=== PATIENT | male | born 1965 | race Caucasian/White ===

== ENCOUNTER 2020-07-25 11:46 | Inpatient (IN) | payer BC, MEDICAID ==
[~2020-07-25] VITALS: Ht 170.2 cm; Wt 88.9 kg
[2020-07-25] MEDS ORDERED: ENOX40IN3 SC (13:26)
[2020-07-25] MEDS ORDERED: FLOM0.4C39 PO (13:26)
[2020-07-25] MEDS ORDERED: FLUD0.1T PO (13:26)
[2020-07-25] MEDS ORDERED: AMLO1TAB25 PO (13:26)
[2020-07-25] MEDS ORDERED: DOCU100C16 PO (13:26)
[2020-07-25] MEDS ORDERED: LISI10TA4 PO (13:26)
[2020-07-25] MEDS ORDERED: DULC10SU2 PR (13:26)
[2020-07-25] MEDS ORDERED: INSUHUMDS SC (13:26)
[2020-07-25] MEDS ORDERED: ACET-908 PO (13:26)
[2020-07-25] MEDS ORDERED: ONDA-83 PO (13:26)
[2020-07-25] MEDS ORDERED: POTA1TAB14 PO (13:26)
[2020-07-25] MEDS ORDERED: ATEN100T PO (13:26)
[2020-07-25] MEDS ORDERED: SODI1TAB6 PO (13:26)
[2020-07-25] MEDS ORDERED: ASPI81CH33 PO (13:26)
[2020-07-25 13:56] VITALS: BP 143/88
[2020-07-25] MEDS ORDERED: REMEDY PHYTOPLEX Z-GUARD PASTE 113GM TUBE (FROM STOREROOM PRODUCT) TOP PRN (14:15)
[2020-07-25] MEDS ORDERED: PREPARATION H OINTMENT (HEMORRHOID) PR PRN (14:15)
[2020-07-25] MEDS ORDERED: URSO1TAB8 PO (14:27)
[2020-07-25] MEDS ORDERED: TRUL10IN PO (14:27)
[2020-07-25] MEDS ORDERED: OMEG100014 PO (14:27)
[2020-07-25] MEDS ORDERED: SYMB16INH INH (14:27)
[2020-07-25] MEDS ORDERED: LISI40TA PO (14:27)
[2020-07-25] MEDS ORDERED: ALBU8.5H INH (14:27)
[2020-07-25] MEDS ORDERED: OMEP-221 PO (14:27)
[2020-07-25] MEDS ORDERED: KETO2CR TOP (14:28)
--- NOTE | 2020-07-25 14:35 | HPEPDOC ---
Vital Signs DATE OF ADMISSION: 07.25.2020 DATE OF SERVICE: 07.25.2020 TIME OF ADMISSION: Please refer to physician's admission order. 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 [place] [facility] [place] head showed L IPH and IV Extension, given Kcentra and TXA for reversal of Eliquis. He was then Air-transferred to [facility] 07.18.2020. on presentation he had receptive aphasia, had R Upper visual field cut, workup noted for abnormal spot EEG/07.23.20, no clear epileptiform abnormality. ECHO 07.22.20 EF 55%, MRI brain 07.20.2020 Acute/subacute L Temporoparietal lobe with stable surrounding edema and mass effect. CTA no change in hemorrhage nor evidence aneurysm or AVM. He was changed to ASA for a fib. Atenolol titrated up to 100/day for intermittent tachy cardia. Hyponatremia treated with Na 3G TID and started on Florinef BID. Plan was to wean off Na tabs as normalized. Sodium 136 on 07.23. He is enrolled in the SATURN trial. Lipid panel 07.18.20 total cholesterol 95, LDL 45, HDL 36 TG 73, HbA1C 6.4, TSH 0.425 07.18.20 REVIEW OF SYSTEMS: The following is a completed review of systems and has been reviewed. Review of systems otherwise unremarkable. PAIN: Patient self reports no pain. EYES: No recent vision changes. EARS, NOSE, & THROAT: No throat pain, or dysphagia, or rhinorrhea. CARDIOVASCULAR: Denies chest pain or palpitations. PULMONARY: Denies shortness of breath. GASTROINTESTINAL: Denies constipation/diarrhea, last bm this am. admits hemorrhoids GENITOURINARY: .continent MUSCULOSKELETAL: bilateral hip girdle discomfort. NEUROLOGICAL:.aphasia, mild left lower extremity weakness HEMATOLOGICAL: no specific complaints SKIN: .widespread erythematous plaques over trunk, lower abdomen PSYCHIATRIC: Unremarkable. All other review of systems found to be negative. PAST MEDICAL HISTORY: Hypertension Diabetes. Afib Asthma Recent PE on anticoagulation Psoriasis PAST SURGICAL HISTORY: Repair umbilical hernia ALLERGIES: PCN, Codiene, Vicodin Please see below. MEDICATIONS: Please see below. FAMILY HISTORY: Father in 30s from cancer, mother 50s from Diabetes. SOCIAL HISTORY: . No- Smoker, EtOH, lives in a O step entrance 2 story home with a roommate who can be helpful, and supportive daughters. He had been on disability, working on SSDI due to prior health issues, however was able to ambulate and perform all self care activities. DIET: .Diabetic PHYSICAL EXAMINATION: VITAL SIGNS: Please see below. GENERAL: Pleasant and cooperative. No acute distress. Alert and oriented times three, occasional word finding difficulties or substitutions noted. HEENT: PERRL. Extraocular movements intact. Clear conjunctiva, no adenopathy or thyromegaly. Full cervical range of motion without tenderness or spasm. CARDIOVASCULAR: Regular rate and rhythm. LUNGS: Clear to auscultation bilaterally. No wheezes. No rhonchi. ABDOMEN: Soft, nontender, obese. Positive bowel sounds. Normal active bowel s ounds, no organomegaly. NEUROLOGICAL: Cranial nerves II through XII intact including visual weston. Sensation grossly intact all 4 extremities. No pronator drift, no tremor, normal tone upper extremities. EXTREMITIES: 5/5 bead inspector, elbow flexion, elbow extension, 4/5 bilateral knee extension, foot dorsiflexion, plantar flexion with complaint of pain into hip girdles on SLR 40 degrees bilaterally. FABERE negative. SKIN: Multiple large maculopapular red lesions posterolateral trunk, abdomen. LABORATORY DATA: Please see below. IMAGING:Imaging documentation personally reviewed by record and noted. FUNCTIONAL STATUS: Premorbid: Independent with all activities of daily life as well as mobility. On Admission: Expressive aphasia, minimal assistance with bathing, contact guard assistance for upper body dressing. Minimal assistance for lower body dressing, modified independence for grooming. GOALS: Regain baseline level of modified independence ASSESSMENT: This is a 55-year-old gentleman with history of hypertension, diabetes, with sudden onset of headache, confusion and right-sided visual field cuts found to have left temporal parietal IPH with extension into the ventricular system at local hospital, transferred to [facility] 07.18.2020, worked up, stabilized and now transferred to [facility] for Comprehensive rehabilitation services. 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 Rehab- PT/OT advance gait and ADls, strengthen/stretch/maintain ROM all 4 san bs, -FRUIT TESTER for communication, swallowing assessments and assist with optimal behavioral strategies to facilitate progress and achievement of greatest potential functional capability. 2. Neuro- s/p ICH, aphasic, no evidence siezures, monitor for progression -c/u ASa and statin for secondary stroke prevention tight lipid control, hold eliquis 3. Cardiac- hx Afib, c/u ASA and beta-dianne, monitor -HTN c/u lisinopril -HLD- c/u CRESTOR 4. Resp -incentive spirometry, RT as indicated, monitor for infection 5. Endo- hx of DM c/u insulin and ISS 7. - check UA, initiate bladder program 8. GI ppx- protonix, POST ADMISSION PHYSICIAN EVALUATION: Medical and functional status: Description of medical status, medical assessment: As above. Rehabilitation diagnosis and current and prior cold morbid medical conditions as above. Risk of complications and plans to mitigate them as above. Description of functional status current status is as above. Prior status as above. Status compared to preadmission: There are no clinically significant differences between the patient's current status and the information described on the preadmission screening document. Treatment plan anticipated: Treatment plan is as described above. Required disciplines including physical therapy, occupational therapy, others as noted above. Intensity of services: 3 hours a day, 6-7 days a week. Special considerations: There are no specific special or safety considerations that would likely preclude immediate implementation of an intensive rehabilitation program or subsequently influence the plan of care. ATTESTATION: Considering all the information above, it is my best judgment that this patient requires intensive rehabilitation therapy as described above and an inpatient hospital environment due to the complexity of nursing, medical, and rehabilitation needs required by the patient. Furthermore, this patient can reasonably be expected to participate in an benefit from an inpatient rehabilitation stay with an interdisciplinary team approach to the delivery of rehabilitation care under the direction and supervision of rehabilitation physician. PROGNOSIS: Good ESTIMATED LENGTH OF STAY:10-14 days. PROJECTED DISCHARGE DESTINATION: Home with family support and any durable medical equipment required to increase functional safety and mobility. TIME SPENT COUNSELING AND COORDINATING INITIAL CARE: Greater than 70 minutes. This document is generated using speech recognition software which may result in grammatical, typographical and individual word errors. Vital Sign - Last 24 Hours 07/25/20 13:56 Temp 97.8 Pulse 87 Resp 20 B/P (MAP) 143/88 (106) Pulse Ox 99 O2 Delivery Room Air Home Medications Scheduled Albuterol Sulfate (Albuterol Sulfate Hfa) 8.5 Gm Hfa.aer.ad, 2 PUFF INH Q4H, (Reported) Amlodipine Besylate (Amlodipine Besylate) 10 Mg Tablet, 10 MG PO DAILY, (Reported) Aspirin (Aspirin) 81 Mg Tab.chew, 81 MG PO DAILY, (Reported) Atenolol (Atenolol) 100 Mg Tablet, 100 MG PO DAILY, (Reported) Budesonide/Formoterol (Symbicort 160-4.5 Mcg Inhaler) 6 Gm Hfa.aer.ad, 2 PUFF INH BID, (Reported) Docusate Sodium (Docusate Sodium) 100 Mg Capsule, 100 MG PO BID, (Reported) Dulaglutide (Trulicity) 0.75 Mg/0.5 Ml Pen.injctr, 0.75 MG PO 1XWK, (Reported) SATURDAYS Enoxaparin Sodium (Enoxaparin Sodium) 40 Mg/0.4 Ml Syringe, 40 MG SC DAILY, (Reported) Fludrocortisone Acetate (Fludrocortisone Acetate) 0.1 Mg Tablet, 0.1 MG PO BID, (Reported) Insulin Human Lispro (Humalog) 100 Unit/1 Ml Vial, 1 DOSE SC AC, (Reported) PER SLIDING SCALE Ketoconazole (Ketoconazole) 15 Gm Cream..g., 1 APLCT TOP BID, (Reported) TO AFFECTED AREAS Lisinopril (Lisinopril) 40 Mg Tablet, 20 MG PO DAILY, (Reported) [place]-3/Dha/Epa/Fish Oil ([place]-3 Fish Oil Softgel) 1 Each Capsule, 2 CAP PO DAILY, (Reported) Omeprazole (Omeprazole) 40 Mg Capsule.dr, 40 MG PO DAILY, (Reported) Potassium Chloride (Potassium Chloride) 20 Meq Tablet.er, 40 MEQ PO DAILY, (Reported) Sodium Chloride (Sodium Chloride) 1 Gm Tablet, 3 GM PO Q8H, (Reported) Tamsulosin HCl (Flomax) 0.4 Mg Capsule, 0.4 MG PO DAILY, (Reported) Ursodiol (Ursodiol) 500 Mg Tablet, 500 MG PO BID, (Reported) Scheduled PRN Acetaminophen (Acetaminophen) 325 Mg Tablet, 650 MG PO Q4H PRN for PAIN / FEVER, (Reported) Bisacodyl (Dulcolax) 10 Mg Supp.rect, 10 MG [place] Q3DP PRN for CONSTIPATION, (Reported) Ondansetron HCl (Ondansetron HCl) 4 Mg Tablet, 4 MG PO Q8H PRN for NAUSEA OR VOMITING, (Reported) Allergies Coded Allergies: Penicillins (Verified Allergy, Unknown, 07/25/20) acetaminophen (Verified Allergy, Unknown, 07/25/20) codeine (Verified Allergy, Unknown, 07/25/20) hydrocodone (Verified Allergy, Unknown, 07/25/20) A-FIB/CHADSVASC A-FIB History Current/History of A-Fib/PAF?: Yes Current PO Anticoag Therapy: Yes Age/Risk Factor Scoring CHADSVASC: CHADSVASC Response (Comments) Value Age Risk Factor Age < 65 years old 0 Gender Risk Factor Male 0 Hx of HTN Yes 1 Hx of Stroke/TIA/or VTE Yes 2 Hx of Diabetes Yes 1 Total 4 LYNDSEY AVENDANO MD Jul 25, 2020 14:35
[2020-07-25] MEDS ORDERED: ONDANSETRON 4 MG TAB PO PRN (14:45)
[2020-07-25] MEDS ORDERED: BISACODYL 10 MG SUPP PR PRN (14:45)
[2020-07-25] MEDS ORDERED: ACETAMINOPHEN 325 MG TAB PO PRN (14:45)
[2020-07-25] MEDS ORDERED: ALBUTEROL 90 MCG/ACT 8GM HFA INHALER INH PRN (14:45)
[2020-07-25] MEDS ORDERED: GLUCOSE 4GM CHEW TABLET PO PRN (15:00)
[2020-07-25] MEDS ORDERED: GLUCAGON INJ 1MG VIAL SC PRN (15:00)
[2020-07-25] MEDS ORDERED: DEXTROSE 50% 50 ML SYRINGE IV PRN (15:00)
[2020-07-25] MEDS: HumaLOG INSULIN (NovoLOG) PER UNIT SC SCH ×2 (16:58→20:58)
[2020-07-25] MEDS: SYMBICORT 160/4.5MCG INHALER 6GM INH SCH (19:50)
[2020-07-25 20:00] VITALS: BP 140/91
[2020-07-25] MEDS: SODIUM CHLORIDE 1 GM TAB PO SCH (20:57)
[2020-07-25] MEDS: ursodioL 300 MG CAP PO SCH (20:57)
[2020-07-25] MEDS: FLUDROCORTISONE ACETATE 0.1 MG TAB PO SCH (20:57)
[2020-07-25] MEDS: DOCUSATE SODIUM 100 MG CAP PO SCH (20:59)
[2020-07-25] MEDS ORDERED: POTASSIUM CHLORIDE 10 MEQ SR TABLET PO SCH (21:00)
[2020-07-25] MEDS ORDERED: FLUDROCORTISONE ACETATE 0.1 MG TAB PO SCH (21:00)
[2020-07-26 05:56] VITALS: BP 126/77
[2020-07-26] MEDS: SODIUM CHLORIDE 1 GM TAB PO SCH ×3 (06:25→21:49)
[2020-07-26 07:03] LABS: BASO # 0.1 10^3/uL (0.0-0.2); BASO % 0.6 % (0.0-1.0); EOS # 0.2 10^3/uL (0.0-0.5); EOS % 1.3 % (0.0-3.0); HEMATOCRIT 50.7 % (42.0-52.0); HEMOGLOBIN 17.1 g/dl (13.5-17.5); LYMPH # 4.8 10^3/uL (1.5-5.0); LYMPH % 34.1 % (24.0-44.0); MEAN CORPUSCULAR HEMOGLOBIN 28.5 pg (27.0-33.0); MEAN CORPUSCULAR HGB CONC 33.7 g/dl (32.0-36.5); MEAN CORPUSCULAR VOLUME 84.5 fl (80.0-96.0); MONO # 1.5 10^3/uL (0.0-0.8); MONO % 10.6 % (0.0-5.0); NEUTROPHILS # 7.4 10^3/uL (1.5-8.5); NEUTROPHILS % 53.1 % (36.0-66.0); PLATELET COUNT, AUTOMATED 397 10^3/uL (150-450); WHITE BLOOD COUNT 13.9 10^3/uL (4.0-10.0)
[2020-07-26] MEDS: SYMBICORT 160/4.5MCG INHALER 6GM INH SCH ×2 (07:10→20:33)
[2020-07-26] MEDS: ursodioL 300 MG CAP PO SCH ×3 (07:28→21:48)
[2020-07-26] MEDS: HumaLOG INSULIN (NovoLOG) PER UNIT SC SCH ×4 (07:28→21:48)
[2020-07-26] MEDS: lisinopriL 20 MG TAB PO SCH (07:29)
[2020-07-26] MEDS: TAMSULOSIN 0.4 MG CAP PO SCH (07:29)
[2020-07-26] MEDS: OMEGA-3 1000MG CAPSULE PO SCH (07:29)
[2020-07-26] MEDS: ASPIRIN 81 MG CHEW TABLET PO SCH (07:29)
[2020-07-26] MEDS: atenoloL 50 MG TAB PO SCH (07:29)
[2020-07-26] MEDS: FLUDROCORTISONE ACETATE 0.1 MG TAB PO SCH ×2 (07:29→21:48)
[2020-07-26] MEDS: MIRALAX *UNIT DOSE* 17GM PACKET PO SCH (07:30)
[2020-07-26] MEDS: DOCUSATE SODIUM 100 MG CAP PO SCH ×2 (07:30→21:00)
[2020-07-26] MEDS: amLODIPine 10 MG TAB PO SCH (07:30)
[2020-07-26] MEDS: OMEPRAZOLE 20 MG CAP PO SCH (07:30)
[2020-07-26] MEDS: POTASSIUM CHLORIDE 10 MEQ SR TABLET PO SCH (07:31)
[2020-07-26] MEDS: ENOXAPARIN 40MG/0.4ML SYRINGE (J1650 PER 10MG) SC SCH (07:32)
[2020-07-26] MEDS: ANUSOL HC CREAM 30GM TOP SCH (09:04)
[2020-07-26] MEDS: ACETAMINOPHEN TAB 650MG DOSE (2X325MG) PO PRN ×2 (09:04→17:43)
[2020-07-26 14:00] VITALS: BP 132/66
--- NOTE | 2020-07-26 17:50 | CR.PDOC ---
General Date of Consultation: Jul 26, 2020 Consultation REASON FOR CONSULTATION/CHIEF COMPLAINT: Medical co-management HISTORY OF PRESENT ILLNESS: 55M with PMHx HTN, DM, recent PE/Eliquis and recent hemorrhagic CVA - left temporoparietal lobe, treated at [facility]. He originally had some focal neurologic deficits including aphasia and visual loss. His deficits have been improving as per patient. Currently he denies any new medical complaints. He denies chest pain, SOB, VAIL, N/V/D, changes in vision, abdominal pain, parasthesias or weakness. ALLERGIES: Please see below. HOME MEDICATIONS: Please see below. PAST MEDICAL HISTORY: Recent hemorrhagic CVA HTN Diabetes. Afib Asthma Recent PE on a/c Psoriasis REVIEW OF SYSTEMS: Negative except as per HPI. PHYSICAL EXAMINATION: VITAL SIGNS: Please see below. GENERAL: NAD, sitting comfortably in chair HEENT: NC/AT, EOMI, PERRL Lungs: CTA B/L Heart: +S1S2, RRR Abd: soft, NT, +BS, obese Ext: no edema, sensation intact Psych: AAOx3 LABORATORY DATA: Please see below. ASSESSMENT/PLAN: 55M transferred to [facility] from [facility] for rehab s/p ICH, with PMHx afib, HTN, DM, PE/Eliquis, history of hyponatremia. #ICH - statin therapy - enrolled in SATURN trial - continue with rehab as per primary team #afib - rate controlled - atenolol - on ASA for a/c #HTN - lisinopril, amlodipine, atenolol #DM - carb consistent diet - ISS #BPH - flomax #cholelithiasis? - receiving Ursodial - PBC? #leukocytosis - check CBC in am #hyponatremia - check BMP in am - florinef, oral sodium supplementation #hemorrhoids - topical ointment - hydrocortisone #DVT prophylaxis - Lovenox Vital Signs/I&O Vital Signs Date Time Temp Pulse Resp B/P (MAP) Pulse Ox O2 Delivery O2 Flow Rate FiO2 07/26/20 14:00 98.3 83 18 132/66 (88) 95 Room Air l I&O- Last 24 Hours up to 6 AM 07/26/20 06:00 Intake Total 320 ml Output Total 0 ml Balance 320 ml Laboratory Data Labs 24H Laboratory Tests 2 07/25/20 20:03: Bedside Glucose (Misc Panel) 173H 07/26/20 06:04: Bedside Glucose (Misc Panel) 133H 07/26/20 06:47: Immature Granulocyte % (Auto) 0.3, Neutrophils (%) (Auto) 53.1, Lymphocytes (%) (Auto) 34.1, Monocytes (%) (Auto) 10.6H, Eosinophils (%) (Auto) 1.3, Basophils (%) (Auto) 0.6, Neutrophils # (Auto) 7.4, Lymphocytes # (Auto) 4.8, Monocytes # (Auto) 1.5H, Eosinophils # (Auto) 0.2, Basophils # (Auto) 0.1, Nucleated Red Blood Cells % (auto) 0.0 07/26/20 11:40: Bedside Glucose (Misc Panel) 109H 07/26/20 16:42: Bedside Glucose (Misc Panel) 185H CBC/BMP Laboratory Tests 07/26/20 06:47 Allergies Coded Allergies: Penicillins (Verified Allergy, Unknown, 07/25/20) codeine (Verified Allergy, Unknown, 07/25/20) hydrocodone (Verified Allergy, Unknown, 07/25/20) Home Medications Scheduled Albuterol Sulfate (Albuterol Sulfate Hfa) 8.5 Gm Hfa.aer.ad, 2 PUFF INH Q4H, (Reported) Amlodipine Besylate (Amlodipine Besylate) 10 Mg Tablet, 10 MG PO DAILY, (Reported) Aspirin (Aspirin) 81 Mg Tab.chew, 81 MG PO DAILY, (Reported) Atenolol (Atenolol) 100 Mg Tablet, 100 MG PO DAILY, (Reported) Budesonide/Formoterol (Symbicort 160-4.5 Mcg Inhaler) 6 Gm Hfa.aer.ad, 2 PUFF INH BID, (Reported) Docusate Sodium (Docusate Sodium) 100 Mg Capsule, 100 MG PO BID, (Reported) Dulaglutide (Trulicity) 0.75 Mg/0.5 Ml Pen.injctr, 0.75 MG PO 1XWK, (Reported) SATURDAYS Enoxaparin Sodium (Enoxaparin Sodium) 40 Mg/0.4 Ml Syringe, 40 MG SC DAILY, (Reported) Fludrocortisone Acetate (Fludrocortisone Acetate) 0.1 Mg Tablet, 0.1 MG PO BID, (Reported) Insulin Human Lispro (Humalog) 100 Unit/1 Ml Vial, 1 DOSE SC AC, (Reported) PER SLIDING SCALE Ketoconazole (Ketoconazole) 15 Gm Cream..g., 1 APLCT TOP BID, (Reported) TO AFFECTED AREAS Lisinopril (Lisinopril) 40 Mg Tablet, 20 MG PO DAILY, (Reported) [place]-3/Dha/Epa/Fish Oil ([place]-3 Fish Oil Softgel) 1 Each Capsule, 2 CAP PO DAILY, (Reported) Omeprazole (Omeprazole) 40 Mg Capsule.dr, 40 MG PO DAILY, (Reported) Potassium Chloride (Potassium Chloride) 20 Meq Tablet.er, 40 MEQ PO DAILY, (Reported) Sodium Chloride (Sodium Chloride) 1 Gm Tablet, 3 GM PO Q8H, (Reported) Tamsulosin HCl (Flomax) 0.4 Mg Capsule, 0.4 MG PO DAILY, (Reported) Ursodiol (Ursodiol) 500 Mg Tablet, 500 MG PO BID, (Reported) Scheduled PRN Acetaminophen (Acetaminophen) 325 Mg Tablet, 650 MG PO Q4H PRN for PAIN / FEVER, (Reported) Bisacodyl (Dulcolax) 10 Mg Supp.rect, 10 MG [place] Q3DP PRN for CONSTIPATION, (Reported) Ondansetron HCl (Ondansetron HCl) 4 Mg Tablet, 4 MG PO Q8H PRN for NAUSEA OR VO MITING, (Reported) JOSH WHITMAN MD Jul 26, 2020 17:50
[2020-07-26 20:00] VITALS: BP 122/84
[2020-07-27 06:00] VITALS: BP 126/80
[2020-07-27] MEDS: SODIUM CHLORIDE 1 GM TAB PO SCH ×3 (06:12→21:27)
[2020-07-27 06:26] LABS: BASO % 0.4 % (0.0-1.0); EOS # 0.1 10^3/uL (0.0-0.5); EOS % 1.3 % (0.0-3.0); HEMATOCRIT 46.6 % (42.0-52.0); HEMOGLOBIN 15.8 g/dl (13.5-17.5); LYMPH # 2.9 10^3/uL (1.5-5.0); LYMPH % 31.3 % (24.0-44.0); MEAN CORPUSCULAR HEMOGLOBIN 28.6 pg (27.0-33.0); MEAN CORPUSCULAR HGB CONC 33.9 g/dl (32.0-36.5); MEAN CORPUSCULAR VOLUME 84.3 fl (80.0-96.0); MONO # 1.1 10^3/uL (0.0-0.8); MONO % 11.3 % (0.0-5.0); NEUTROPHILS # 5.1 10^3/uL (1.5-8.5); NEUTROPHILS % 55.2 % (36.0-66.0); PLATELET COUNT, AUTOMATED 355 10^3/uL (150-450); RED BLOOD COUNT 5.53 10^6/uL (4.30-6.10); WHITE BLOOD COUNT 9.3 10^3/uL (4.0-10.0)
[2020-07-27] MEDS: SYMBICORT 160/4.5MCG INHALER 6GM INH SCH ×2 (07:04→20:18)
[2020-07-27 07:05] LABS: ALBUMIN 2.9 GM/DL (3.2-5.2); ALT/SGPT 30 U/L (12-78); BILIRUBIN,TOTAL 0.6 MG/DL (0.2-1.0); BLOOD UREA NITROGEN 10 MG/DL (7-18); CALCIUM LEVEL 8.9 MG/DL (8.5-10.1); CARBON DIOXIDE LEVEL 28 MEQ/L (21-32); CHLORIDE LEVEL 106 MEQ/L (98-107); CREATININE FOR GFR 0.87 MG/DL (0.70-1.30); GLOMERULAR FILTRATION RATE > 60.0 (>56); GLUCOSE, FASTING 139 MG/DL (70-100); POTASSIUM SERUM 3.3 MEQ/L (3.5-5.1); SODIUM LEVEL 140 MEQ/L (136-145); TOTAL PROTEIN 6.4 GM/DL (6.4-8.2)
[2020-07-27] MEDS: HumaLOG INSULIN (NovoLOG) PER UNIT SC SCH ×4 (07:32→21:00)
[2020-07-27] MEDS: ENOXAPARIN 40MG/0.4ML SYRINGE (J1650 PER 10MG) SC SCH (07:34)
[2020-07-27] MEDS: OMEPRAZOLE 20 MG CAP PO SCH (07:35)
[2020-07-27] MEDS: FLUDROCORTISONE ACETATE 0.1 MG TAB PO SCH ×2 (07:35→21:30)
[2020-07-27] MEDS: ASPIRIN 81 MG CHEW TABLET PO SCH (07:35)
[2020-07-27] MEDS: POTASSIUM CHLORIDE 10 MEQ SR TABLET PO SCH (07:35)
[2020-07-27] MEDS: TAMSULOSIN 0.4 MG CAP PO SCH (07:35)
[2020-07-27] MEDS: amLODIPine 10 MG TAB PO SCH (07:36)
[2020-07-27] MEDS: ursodioL 300 MG CAP PO SCH ×3 (07:36→21:30)
[2020-07-27] MEDS: OMEGA-3 1000MG CAPSULE PO SCH (07:36)
[2020-07-27] MEDS: MIRALAX *UNIT DOSE* 17GM PACKET PO SCH (07:37)
[2020-07-27] MEDS: lisinopriL 20 MG TAB PO SCH (07:37)
[2020-07-27] MEDS: atenoloL 50 MG TAB PO SCH (07:37)
[2020-07-27] MEDS: DOCUSATE SODIUM 100 MG CAP PO SCH ×2 (09:00→21:31)
[2020-07-27] MEDS: ANUSOL HC CREAM 30GM TOP SCH (09:00)
[2020-07-27 13:01] LABS: APPEARANCE, URINE MANUAL CLOUDY (CLEAR); COLOR, URINE MANUAL LT YELLOW (YELLOW)
[2020-07-27 13:04] LABS: GLUCOSE, URINE (UA) MANUAL NEGATIVE (NEGATIVE); KETONE, URINE MANUAL NEGATIVE (NEGATIVE); PROTEIN, URINE MANUAL TRACE mg/dL (NEGATIVE); SPECIFIC GRAVITY,URINE MANUAL 1.015 (1.002-1.035)
[2020-07-27 13:05] LABS: BILIRUBIN, URINE MANUAL NEGATIVE (NEGATIVE); BLOOD URINE MANUAL TRACE (NEGATIVE); LEUKOCYTE ESTERASE, URINE MAN NEGATIVE (NEGATIVE); NITRITE, URINE MANUAL NEGATIVE (NEGATIVE); UROBILINOGEN, URINE MANUAL NORMAL (NORMAL)
[2020-07-27 13:16] LABS: RBC, URINE 0-1 /hpf (0-3); SQUAMOUS EPITHELIAL CELL URINE SMALL AMOUNT /hpf (SMALL AMT); WBC, URINE 0-1 /hpf (0-3)
[2020-07-27 13:17] LABS: AMORPHOUS SEDIMENT, URINE MOD AMOUNT (NEGATIVE); MUCUS, URINE MOD AMOUNT (NEGATIVE)
[2020-07-27 13:18] LABS: BACTERIA, URINE SMALL AMOUNT
[2020-07-27 13:20] LABS: HYALINE CAST, URINE NONE SEEN /lpf (0-1)
[2020-07-27 14:00] VITALS: BP 134/89
[2020-07-27 14:37] LABS: BLOOD UREA NITROGEN 12 MG/DL (7-18); CALCIUM LEVEL 8.4 MG/DL (8.5-10.1); CARBON DIOXIDE LEVEL 29 MEQ/L (21-32); CHLORIDE LEVEL 105 MEQ/L (98-107); CREATININE FOR GFR 1.07 MG/DL (0.70-1.30); GLOMERULAR FILTRATION RATE > 60.0 (>56); GLUCOSE, FASTING 198 MG/DL (70-100); POTASSIUM SERUM 3.4 MEQ/L (3.5-5.1); SODIUM LEVEL 141 MEQ/L (136-145)
[2020-07-27] MEDS ORDERED: POTASSIUM CHLORIDE 10 MEQ SR TABLET PO ONE (17:00)
[2020-07-27] MEDS ORDERED: PILL CUTTER 1 EACH XX PRN (18:30)
[2020-07-27 20:07] VITALS: BP 149/90
[2020-07-27] MEDS: ACETAMINOPHEN TAB 650MG DOSE (2X325MG) PO PRN (21:30)
[2020-07-27 22:00] VITALS: BP 131/79
[2020-07-28 05:54] VITALS: BP 150/80
[2020-07-28] MEDS: SODIUM CHLORIDE 1 GM TAB PO SCH (06:17)
[2020-07-28 07:15] LABS: HEMATOCRIT 49.7 % (42.0-52.0); HEMOGLOBIN 16.4 g/dl (13.5-17.5); MEAN CORPUSCULAR HEMOGLOBIN 28.2 pg (27.0-33.0); MEAN CORPUSCULAR VOLUME 85.4 fl (80.0-96.0); PLATELET COUNT, AUTOMATED 410 10^3/uL (150-450); RED BLOOD COUNT 5.82 10^6/uL (4.30-6.10); WHITE BLOOD COUNT 9.9 10^3/uL (4.0-10.0)
[2020-07-28] MEDS: SYMBICORT 160/4.5MCG INHALER 6GM INH SCH ×2 (07:17→20:06)
[2020-07-28 07:47] LABS: BLOOD UREA NITROGEN 10 MG/DL (7-18); CALCIUM LEVEL 8.7 MG/DL (8.5-10.1); CARBON DIOXIDE LEVEL 26 MEQ/L (21-32); CHLORIDE LEVEL 107 MEQ/L (98-107); GLOMERULAR FILTRATION RATE > 60.0 (>56); GLUCOSE, FASTING 140 MG/DL (70-100); MAGNESIUM LEVEL 2.2 MG/DL (1.8-2.4); POTASSIUM SERUM 3.6 MEQ/L (3.5-5.1); SODIUM LEVEL 141 MEQ/L (136-145)
[2020-07-28] MEDS: FLUDROCORTISONE ACETATE 0.1 MG TAB PO SCH ×2 (08:13→09:00)
[2020-07-28] MEDS: ASPIRIN 81 MG CHEW TABLET PO SCH (08:13)
[2020-07-28] MEDS: OMEGA-3 1000MG CAPSULE PO SCH (08:13)
[2020-07-28] MEDS: TAMSULOSIN 0.4 MG CAP PO SCH (08:13)
[2020-07-28] MEDS: amLODIPine 10 MG TAB PO SCH (08:13)
[2020-07-28] MEDS: OMEPRAZOLE 20 MG CAP PO SCH (08:13)
[2020-07-28] MEDS: ursodioL 300 MG CAP PO SCH ×3 (08:13→20:38)
[2020-07-28] MEDS: lisinopriL 20 MG TAB PO SCH (08:14)
[2020-07-28] MEDS: POTASSIUM CHLORIDE 10 MEQ SR TABLET PO SCH (08:14)
[2020-07-28] MEDS: atenoloL 50 MG TAB PO SCH (08:14)
[2020-07-28] MEDS: ENOXAPARIN 40MG/0.4ML SYRINGE (J1650 PER 10MG) SC SCH (08:15)
[2020-07-28] MEDS: HumaLOG INSULIN (NovoLOG) PER UNIT SC SCH ×4 (08:15→20:37)
[2020-07-28] MEDS: ANUSOL HC CREAM 30GM TOP SCH ×2 (08:16→11:04)
--- NOTE | 2020-07-28 08:32 | IPNPDOC ---
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 Resolving Right Visual Field Cut. Low back pain with bilateral lower extremity discomfort. 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 He was seen at [facility] [place], [place] head showed L IPH and IV Extension, given Kcentra and TXA for reversal of Eliquis. He was then Air-transferred to [facility] 07.18.2020. on presentation he had receptive aphasia, had R Upper visual field cut, workup noted for abnormal spot EEG/07.23.20, no clear epileptiform abnormality. ECHO 07.22.20 EF 55%, MRI brain 07.20.2020 Acute/subacute L Temporoparietal lobe with stable surrounding edema and mass effect. CTA no change in hemorrhage nor evidence aneurysm or AVM. He was changed to ASA for a fib. Atenolol titrated up to 100/day for intermittent tachy cardia. Hyponatremia treated with Na 3G TID and started on Florinef BID. Plan was to wean off Na tabs as normalized. Sodium 136 on 07.23. He is enrolled in the SATURN trial. Lipid panel 07.18.20 total cholesterol 95, LDL 45, HDL 36 TG 73, HbA1C 6.4, TSH 0.425 07.18.20. He did well over the weekend, notes last night was his best sleep yet. He feels rested and ready to continue to work hard in therapy, however continues with LBP and bilateral LE discomfort. Took salt tabs and Flourinef with improvement in elecrolyte imbalance. REVIEW OF SYSTEMS: The following is a completed review of systems and has been reviewed. Review of systems otherwise unremarkable. PAIN: Patient self reports no pain. EYES: No recent vision changes. EARS, NOSE, & THROAT: No throat pain, or dysphagia, or rhinorrhea. CARDIOVASCULAR: Denies chest pain or palpitations. PULMONARY: Denies shortness of breath. GASTROINTESTINAL: Denies constipation/diarrhea, notes, this morning. GENITOURINARY: Continent. No complaints. MUSCULOSKELETAL: bilateral hip girdle discomfort and complaint of low back pain NEUROLOGICAL:.aphasia, mild left lower extremity weakness HEMATOLOGICAL: no specific complaints SKIN: .widespread erythematous plaques over trunk, lower abdomen PSYCHIATRIC: Unremarkable. All other review of systems found to be negative. MEDICATIONS: Please see below. SOCIAL HISTORY: . Nonsteroid Smoker, EtOH, lives in a O step entrance 2 story home with a roommate who can be helpful, and supportive daughters. He had been on disability, working on SSDI due to prior health issues, however was able to ambulate and perform all self care activities. PHYSICAL EXAMINATION: VITAL SIGNS: Please see below. GENERAL: Pleasant and cooperative. No acute distress. Alert and oriented times three, occasional word finding difficulties noted. HEENT: PERRL. Extraocular movements intact. Clear conjunctiva, no adenopathy or thyromegaly. Full cervical range of motion without tenderness or spasm. CARDIOVASCULAR: S1, S2 occasional extra beats. LUNGS: Clear to auscultation bilaterally. No wheezes. No rhonchi. ABDOMEN: Soft, nontender, obese. Positive bowel sounds. Normal active bowel sounds, no organomegaly. NEUROLOGICAL: Cranial nerves II through XII intact including visual weston. Sensation grossly intact all 4 extremities. EXTREMITIES: 5/5 left 3+/ 5 right entertainment manager, elbow flexion, elbow extension, 4/5 bilateral knee extension, foot dorsiflexion, plantar flexion with complaint of pain into bilateral hamstrings and hip girdles on SLR 40 degrees bilaterally.. SKIN: Multiple large maculopapular red lesions posterolateral trunk, abdomen. LABORATORY DATA: Please see below. WBC elevated at 13.9 on 07/26, now 9.9, sodium normalized at 141, potassium normalized at 3.6 after replenishment. Well observe the ability to maintain with usual dietary intake, fasting blood sugar 198 yesterday, down to 140 this morning and calcium normalized 8.7. UA negative FUNCTIONAL STATUS: Premorbid: Independent with all activities of daily life as well as mobility. Expressive aphasia, contact-guard assistance for [id number], bed to chair here. Of weight-shifting, drink chance was noted. Requires cues for sequencing. Ambulating 200 feet with contact-guard assistance and a rolling walker. Will continue work on energy conservation for shortness of breath. Otherwise, contact-guard assistance for toilet and tub transfers. 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 GOALS: Regain baseline level of modified independence ASSESSMENT: Left temporal parietal ICH HTN DM History PE on Eliquis aphasia Hyponatremia/HypoKalemia, normalizing AFib. Psoriasis This is a 55-year-old gentleman with history of hypertension, diabetes, with sudden onset of headache, confusion and right-sided visual field cuts found to h ave left temporal parietal IPH with extension into the ventricular system at local hospital, transferred to [facility] 07.18.2020, worked up, stabilized and now transferred to [facility] for Comprehensive rehabilitation services. PLAN: 1. Rehab- PT/OT advance gait and ADls, strengthen/stretch/maintain ROM all 4 limbs, -FOOD DEHYDRATOR OPERATOR for communication, swallowing assessments and assist with optimal behavioral strategies to facilitate progress and achievement of greatest potential functional capability. 2. Neuro- s/p ICH, aphasic, no evidence siezures, monitor for progression -c/u ASa and statin for secondary stroke prevention tight lipid control, hold eliquis 3. Cardiac- hx Afib, c/u ASA and beta-dianne, on SATURN trial -HTN c/u Lisinopril, partial elevated in the 150s. However, also on extra K+ for hypokalemia, normalized, sodium for Hyponatremia, which has now stabilized, will DC Na+ and decrease flourinef, recheck BMP and monitor BP -HLD- c/u CRESTOR 4. Resp -incentive spirometry, RT as indicated, monitor for infection 5. Endo- hx of DM c/u insulin and ISS 7. - check UA, initiate bladder program 8. GI ppx- protonix, 9. MSK-LB pain impacting mobility training and rehab process, possible dural irritation vs OA/DDD impact. Check plain films, include LB spine stabilization rx as part of protocol. PROJECTED DISCHARGE DESTINATION: Home with roommate support and any durable medical equipment required to increase functional safety and mobility. PROGNOSIS: Good ESTIMATED LENGTH OF STAY:10-14 days. TIME SPENT COUNSELING AND COORDINATING INITIAL CARE: 30 minutes. This document is generated using speech recognition software which may result in grammatical, typographical and individual word errors. Allergies Coded Allergies: Penicillins (Verified Allergy, Unknown, 07/25/20) codeine (Verified Allergy, Unknown, 07/25/20) hydrocodone (Verified Allergy, Unknown, 07/25/20) Vital Signs Vital Signs Date Time Temp Pulse Resp B/P (MAP) Pulse Ox O2 Delivery O2 Flow Rate FiO2 07/28/20 08:14 150/80 07/28/20 08:14 91 07/28/20 05:54 98.0 17 98 Room Air Laboratory Data CBC/BMP Laboratory Tests 07/27/20 13:41 07/28/20 07:05 Labs 24H Laboratory Tests 2 07/27/20 11:43: Bedside Glucose (Misc Panel) 107H 07/27/20 12:58: Bedside Urine Color (LAB) LT YELLOW, Bedside Urine Appearance (LAB) CLOUDYH, Bedside Urine pH (LAB) 7.0, Bedside Urine Specific Thoreau (LAB 1.015, Bedside Urine Protein (LAB) TRACEH, Bedside Urine Glucose (UA) NEGATIVE, Bedside Urine Ketones (LAB) NEGATIVE, Bedside Urine Blood TRACEH, Bedside Urine Nitrite (LAB) NEGATIVE, Bedside Urine Bilirubin (LAB) NEGATIVE, Bedside Urine Urobilinogen (LAB) NORMAL, Bedside Urine Leukocyte Esterase (L NEGATIVE, Urine Sediment Examination PERFORMED, Urine RBC 0-1, Urine WBC 0-1, Urine Squamous Epithelial Cells SMALL AMOUNT, Urine Amorphous Sediment MOD AMOUNTH, Urine Bacteria SMALL AMOUNTH, Urine Hyaline Casts NONE SEEN, Urine Mucus MOD AMOUNTH 07/27/20 13:41: Anion Gap 7L, Glomerular Filtration Rate > 60.0, Calcium Level 8.4L 07/27/20 16:51: Bedside Glucose (Misc Panel) 159H 07/27/20 20:25: Bedside Glucose (Misc Panel) 152H 07/28/20 07:05: Nucleated Red Blood Cells % (auto) 0.0, Anion Gap 8, Glomerular Filtration Rate > 60.0, Calcium Level 8.7, Magnesium Level 2.2 Current Medications Current Medications Current Medications Medications (Trade) Dose Ordered Sig/Amelia Route PRN Reason Start Time Stop Time Status Last Admin Dose Admin Acetaminophen (Tylenol Tab) 650 mg Q4H PRN PO PAIN / FEVER 07/25/20 14:45 UNV Acetaminophen (Tylenol Tab) 650 mg Q4HP PRN PO MILD PAIN (PS 1-4) 07/25/20 12:00 07/27/20 21:30 Albuterol Sulfate (Proventil, Ventolin Hfa) 2 puff Q4H PRN INH SOB/WHEEZING 07/25/20 14:45 Amlodipine Besylate (Norvasc) 10 mg DAILY PO 07/26/20 09:00 07/28/20 08:13 Aspirin (Aspirin Chewable) 81 mg DAILY PO 07/26/20 09:00 07/28/20 08:13 Atenolol (Tenormin) 100 mg DAILY PO 07/26/20 09:00 07/28/20 08:14 Bisacodyl (Dulcolax Suppository) 10 mg Q3DP PRN [place] CONSTIPATION 07/25/20 14:45 Budesonide/ Formoterol Fumarate (Symbicort 160/ 4.5mcg) 2 puff RBID INH 07/25/20 20:00 07/28/20 07:17 Dextrose (Dextrose 50%) 25 ml ASDIRECTED PRN IV SEE LABEL COMMENTS 07/25/20 15:00 Docusate Sodium (Colace) 100 mg BID PO 07/25/20 21:00 07/27/20 21:31 Enoxaparin Sodium (Lovenox) 40 mg DAILY SC 07/26/20 09:00 07/28/20 08:15 Fish Oil (Edgard-3 (1000mg)) 1 cap DAILY PO 07/26/20 09:00 07/28/20 08:13 Fludrocortisone Acetate (Florinef) 0.1 mg BID PO 07/25/20 21:00 07/25/20 14:50 DC Fludrocortisone Acetate (Florinef) 0.1 mg BID PO 07/25/20 21:00 07/28/20 08:13 Glucagon (Glucagon) 1 mg ASDIRECTED PRN SC SEE LABEL COMMENTS 07/25/20 15:00 Glucose (Glucose) 16 GM ASDIRECTED PRN PO SEE LABEL COMMENTS 07/25/20 15:00 Home Med (Med Rec Complete!) ASDIRECTED XX 07/25/20 14:30 07/25/20 14:52 DC Hydrocortisone (Proctosol Hc) TO RECTAL AREA DAILY TOP 07/26/20 09:00 07/26/20 09:04 Insulin Human Lispro (HumaLOG INSULIN) SEE PROTOCOL TABLE AC SC 07/25/20 17:30 07/28/20 08:15 Insulin Human Lispro (HumaLOG INSULIN) SEE PROTOCOL TABLE QHS SC 07/25/20 21:00 07/26/20 21:48 Lisinopril (Prinivil) 20 mg DAILY PO 07/26/20 09:00 07/28/20 08:14 Omeprazole (PriLOSEC) 40 mg DAILY PO 07/26/20 09:00 07/28/20 08:13 Ondansetron HCl (Zofran) 4 mg Q8H PRN PO NAUSEA OR VOMITING 07/25/20 14:45 Phenyleph/Shark Oil/Min Oil/Petrol (Preparation H Ointment) QIDP PRN [place] ITCHING 07/25/20 14:15 Polyethylene Glycol (Miralax) 1 pkt DAILY PO 07/26/20 09:00 07/26/20 07:30 Potassium Chloride (Micro-K Extencaps) 40 meq BID PO 07/25/20 21:00 07/25/20 15:07 DC Potassium Chloride (Micro-K Extencaps) 40 meq DAILY PO 07/26/20 09:00 07/28/20 08:14 Sodium Chloride (Sodium Chloride) 3 gm Q8H PO 07/25/20 22:00 07/28/20 06:17 Tamsulosin HCl (Flomax) 0.4 mg DAILY PO 07/26/20 09:00 07/28/20 08:13 Ursodiol (Actigall) 300 mg TID PO 07/25/20 21:00 07/28/20 08:13 LYNDSEY AVENDANO MD Jul 28, 2020 08:32
[2020-07-28] MEDS: DOCUSATE SODIUM 100 MG CAP PO SCH ×2 (09:00→20:37)
[2020-07-28] MEDS: MIRALAX *UNIT DOSE* 17GM PACKET PO SCH (09:00)
[2020-07-28] MEDS ORDERED: PREPARATION H OINTMENT (HEMORRHOID) PR PRN (09:15)
--- NOTE | 2020-07-28 10:27 | REP ---
INDICATION: LBP with pos SLR. COMPARISON: None. TECHNIQUE: Five views are provided FINDINGS: Normal lordosis is maintained. There is bilateral L5 spondylolysis and grade 2 spondylolisthesis of L5 on S1. Some mild facet hypertrophy at this level. There is slight disc space narrowing at L4-5 and greater at L5-S1. Small amount of vascular calcification in the aorta and iliac vessels. Vertebral body heights were intact the L3-4 and levels above show disc spaces intact. SI joints, sacral ala and foramina unremarkable pelvic ring intact. IMPRESSION: Bilateral L5 spondylolysis with grade 2 spondylolisthesis of L5 on S1. Disc space narrowing at L5-S1, minimally at L4-5. Levels above normal. . <Electronically signed by Tyrone Salazar > 07/28/20 0083
[2020-07-28] MEDS: ACETAMINOPHEN TAB 650MG DOSE (2X325MG) PO PRN (11:03)
[2020-07-28 14:00] VITALS: BP 145/71
[2020-07-28 20:00] VITALS: BP 148/88
[2020-07-29 06:00] VITALS: BP 168/86
[2020-07-29 06:28] LABS: BLOOD UREA NITROGEN 10 MG/DL (7-18); CALCIUM LEVEL 9.1 MG/DL (8.5-10.1); CARBON DIOXIDE LEVEL 28 MEQ/L (21-32); CHLORIDE LEVEL 105 MEQ/L (98-107); CREATININE FOR GFR 0.91 MG/DL (0.70-1.30); GLOMERULAR FILTRATION RATE > 60.0 (>56); GLUCOSE, FASTING 132 MG/DL (70-100); POTASSIUM SERUM 3.6 MEQ/L (3.5-5.1); SODIUM LEVEL 140 MEQ/L (136-145)
[2020-07-29] MEDS: SYMBICORT 160/4.5MCG INHALER 6GM INH SCH ×2 (07:30→19:14)
[2020-07-29] MEDS: DOCUSATE SODIUM 100 MG CAP PO SCH ×2 (09:00→21:00)
[2020-07-29] MEDS: MIRALAX *UNIT DOSE* 17GM PACKET PO SCH (09:00)
[2020-07-29] MEDS: OMEPRAZOLE 20 MG CAP PO SCH (09:12)
[2020-07-29] MEDS: OMEGA-3 1000MG CAPSULE PO SCH (09:12)
[2020-07-29] MEDS: ENOXAPARIN 40MG/0.4ML SYRINGE (J1650 PER 10MG) SC SCH (09:12)
[2020-07-29] MEDS: ASPIRIN 81 MG CHEW TABLET PO SCH (09:12)
[2020-07-29] MEDS: lisinopriL 20 MG TAB PO SCH (09:13)
[2020-07-29] MEDS: ursodioL 300 MG CAP PO SCH ×3 (09:13→21:01)
[2020-07-29] MEDS: TAMSULOSIN 0.4 MG CAP PO SCH (09:13)
[2020-07-29] MEDS: FLUDROCORTISONE ACETATE 0.1 MG TAB PO SCH (09:14)
[2020-07-29] MEDS: ANUSOL HC CREAM 30GM TOP SCH (09:15)
[2020-07-29] MEDS: amLODIPine 10 MG TAB PO SCH (09:15)
[2020-07-29] MEDS: atenoloL 50 MG TAB PO SCH (09:16)
[2020-07-29] MEDS: HumaLOG INSULIN (NovoLOG) PER UNIT SC SCH ×4 (09:29→21:00)
[2020-07-29] MEDS: POTASSIUM CHLORIDE 10 MEQ SR TABLET PO SCH (11:55)
[2020-07-29] MEDS: ACETAMINOPHEN TAB 650MG DOSE (2X325MG) PO PRN (11:55)
--- NOTE | 2020-07-29 12:42 | IPNPDOC ---
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 Resolving Right Visual Field Cut. Low back pain with bilateral lower extremity discomfort. 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 He was seen at [facility], CT head showed L IPH and IV Extension, given Kcentra and TXA for reversal of Eliquis. He was then Air-transferred to [facility] 07.18.2020. on presentation he had receptive aphasia, had R Upper visual field cut, workup noted for abnormal spot EEG/07.23.20, no clear epileptiform abnormality. ECHO 07.22.20 EF 55%, MRI brain 07.20.2020 Acute/subacute L Temporoparietal lobe with stable surrounding edema and mass effect. CTA no change in hemorrhage nor evidence aneurysm or AVM. He was changed to ASA for a fib. Atenolol titrated up to 100/day for intermittent tachy cardia. Hyponatremia treated with Na 3G TID and started on Florinef BID. Plan was to wean off Na tabs as normalized. Sodium 136 on 07.23. He is enrolled in the SATURN trial. Lipid panel 07.18.20 total cholesterol 95, LDL 45, HDL 36 TG 73, HbA1C 6.4, TSH 0.425 07.18.20. He did well over the weekend, notes last night was his best sleep yet. He feels rested and ready to continue to work hard in therapy, however continues with LBP and bilateral LE discomfort. Took salt tabs and Flourinef with improvement in elecrolyte imbalance. REVIEW OF SYSTEMS: The following is a completed review of systems and has been reviewed. Review of systems otherwise unremarkable. PAIN: Patient self reports no pain. EYES: No recent vision changes. EARS, NOSE, & THROAT: No throat pain, or dysphagia, or rhinorrhea. CARDIOVASCULAR: Denies chest pain or palpitations. PULMONARY: Denies shortness of breath. GASTROINTESTINAL: Denies constipation/diarrhea, notes, this morning. GENITOURINARY: Continent. No complaints. MUSCULOSKELETAL: bilateral hip girdle discomfort and complaint of low back pain NEUROLOGICAL:.aphasia, mild left lower extremity weakness HEMATOLOGICAL: no specific complaints SKIN: .widespread psoriasis plaques over trunk, lower abdomen PSYCHIATRIC: Unremarkable. All other review of systems found to be negative. MEDICATIONS: Please see below. PHYSICAL EXAMINATION: VITAL SIGNS: Please see below. GENERAL: Pleasant and cooperative. No acute distress. Alert and oriented times three, occasional word finding difficulties noted. HEENT: PERRL. Extraocular movements intact. Clear conjunctiva, no adenopathy or thyromegaly. Full cervical range of motion without tenderness or spasm. CARDIOVASCULAR: S1, S2 occasional extra beats. LUNGS: Clear to auscultation bilaterally. No wheezes. No rhonchi. ABDOMEN: Soft, nontender, obese. Positive bowel sounds. Normal active bowel sounds, no organomegaly. NEUROLOGICAL: Cranial nerves II through XII intact including visual weston. Sensation grossly intact all 4 extremities. EXTREMITIES: 5/5 left 3+/ 5 right nurses educator, elbow flexion, elbow extension, 4/5 bilateral knee extension, foot dorsiflexion, plantar flexion with complaint of pain into bilateral hamstrings and hip girdles on SLR 40 degrees bilaterally.. SKIN: Multiple large maculopapular red lesions posterolateral trunk, abdomen. LABORATORY DATA: Please see below. Sodium holding steady 140, K+ 3.6, FBS 132 FUNCTIONAL STATUS: Premorbid: Independent with all activities of daily life as well as mobility. Expressive aphasia, contact-guard assistance for [id number], bed to chair here. Of weight-shifting, drink chance was noted. Requires cues for sequencing. Ambulating 200 feet with contact-guard assistance and a rolling walker. Will continue work on energy conservation for shortness of breath. Otherwise, contact-guard assistance for toilet and tub transfers. SLEEVE MAKER interventions pending. GOALS: Regain baseline level of modified independence ASSESSMENT: Left temporal parietal ICH HTN DM History PE on Eliquis aphasia Hyponatremia/HypoKalemia, normalizing AFib. Psoriasis This is a 55-year-old gentleman with history of hypertension, diabetes, with sudden onset of headache, confusion and right-sided visual field cuts found to have left temporal parietal IPH with extension into the ventricular system at local hospital, transferred to [facility] 07.18.2020, worked up, stabilized and now transferred to [facility] for Comprehensive rehabilitation services. PLAN: 1. Rehab- PT/OT advance gait and ADls, strengthen/stretch/maintain ROM all 4 limbs, -SLEEVE MAKER for communication, swallowing assessments and assist with optimal behavioral strategies to facilitate progress and achievement of greatest potential functional capability. 2. Neuro- s/p ICH, aphasic, no evidence siezures, monitor for progression -c/u ASa and statin for secondary stroke prevention tight lipid control, hold eliquis 3. Cardiac- hx Afib, c/u ASA and beta-dianne, on SATURN trial -HTN c/u Lisinopril, partial elevated in the 150s. However, also on extra K+ for hypokalemia, normalized, sodium for Hyponatremia, which has now stabilized, will DC Na+ and decrease flourinef, recheck BMP and monitor BP -HLD- c/u CRESTOR 4. Resp -incentive spirometry, RT as indicated, monitor for infection 5. Endo- hx of DM c/u insulin and ISS 7. - check UA, initiate bladder program 8. GI ppx- protonix, 9. MSK-LB pain impacting mobility training and rehab process, possible dural irritation vs OA/DDD impact. Check plain films, include LB spine stabilization rx as part of protocol. PROJECTED DISCHARGE DESTINATION: Home with roommate support and any durable medical equipment required to increase functional safety and mobility. PROGNOSIS: Good ESTIMATED LENGTH OF STAY:10-14 days. TIME SPENT COUNSELING AND COORDINATING INITIAL CARE: 30 minutes. This document is generated using speech recognition software which may result in grammatical, typographical and individual word errors. Allergies Coded Allergies: Penicillins (Verified Allergy, Unknown, 07/25/20) codeine (Verified Allergy, Unknown, 07/25/20) hydrocodone (Verified Allergy, Unknown, 07/25/20) Vital Signs Vital Signs Date Time Temp Pulse Resp B/P (MAP) Pulse Ox O2 Delivery O2 Flow Rate FiO2 07/29/20 09:15 82 168/86 07/29/20 06:00 98.0 18 97 Room Air Laboratory Data CBC/BMP Laboratory Tests 07/29/20 05:33 Labs 24H Laboratory Tests 2 07/28/20 16:41: Bedside Glucose (Misc Panel) 168H 07/28/20 19:57: Bedside Glucose (Misc Panel) 154H 07/29/20 05:33: Anion Gap 7L, Glomerular Filtration Rate > 60.0, Calcium Level 9.1 07/29/20 11:32: Bedside Glucose (Misc Panel) 108H Current Medications Current Medications Current Medications Medications (Trade) Dose Ordered Sig/Amelia Route PRN Reason Start Time Stop Time Status Last Admin Dose Admin Acetaminophen (Tylenol Tab) 650 mg Q4H PRN PO PAIN / FEVER 07/25/20 14:45 UNV Acetaminophen (Tylenol Tab) 650 mg Q4HP PRN PO MILD PAIN (PS 1-4) 07/25/20 12:00 07/29/20 11:55 Albuterol Sulfate (Proventil, Ventolin Hfa) 2 puff Q4H PRN INH SOB/WHEEZING 07/25/20 14:45 Amlodipine Besylate (Norvasc) 10 mg DAILY PO 07/26/20 09:00 07/29/20 09:15 Aspirin (Aspirin Chewable) 81 mg DAILY PO 07/26/20 09:00 07/29/20 09:12 Atenolol (Tenormin) 100 mg DAILY PO 07/26/20 09:00 07/29/20 09:16 Bisacodyl (Dulcolax Suppository) 10 mg Q3DP PRN [place] CONSTIPATION 07/25/20 14:45 Budesonide/ Formoterol Fumarate (Symbicort 160/ 4.5mcg) 2 puff RBID INH 07/25/20 20:00 07/29/20 07:30 Dextrose (Dextrose 50%) 25 ml ASDIRECTED PRN IV SEE LABEL COMMENTS 07/25/20 15:00 Docusate Sodium (Colace) 100 mg BID PO 07/25/20 21:00 07/27/20 21:31 Enoxaparin Sodium (Lovenox) 40 mg DAILY SC 07/26/20 09:00 07/29/20 09:12 Fish Oil ([place]iverside-3 (1000mg)) 1 cap DAILY PO 07/26/20 09:00 07/29/20 09:12 Fludrocortisone Acetate (Florinef) 0.1 mg BID PO 07/25/20 21:00 07/25/20 14:50 DC Fludrocortisone Acetate (Florinef) 0.1 mg BID PO 07/25/20 21:00 07/28/20 08:56 DC 07/28/20 08:13 Fludrocortisone Acetate (Florinef) 0.1 mg DAILY PO 07/28/20 09:00 07/29/20 09:14 Glucagon (Glucagon) 1 mg ASDIRECTED PRN SC SEE LABEL COMMENTS 07/25/20 15:00 Glucose (Glucose) 16 GM ASDIRECTED PRN PO SEE LABEL COMMENTS 07/25/20 15:00 Home Med (Med Rec Complete!) ASDIRECTED XX 07/25/20 14:30 07/25/20 14:52 DC Hydrocortisone (Proctosol Hc) TO RECTAL AREA DAILY TOP 07/26/20 09:00 07/28/20 09:03 DC 07/26/20 09:04 Hydrocortisone (Proctosol Hc) apply to plaques o... DAILY TOP 07/28/20 09:00 07/29/20 09:15 Insulin Human Lispro (HumaLOG INSULIN) SEE PROTOCOL TABLE AC SC 07/25/20 17:30 07/29/20 11:54 Insulin Human Lispro (HumaLOG INSULIN) SEE PROTOCOL TABLE QHS SC 07/25/20 21:00 07/26/20 21:48 Lisinopril (Prinivil) 20 mg DAILY PO 07/26/20 09:00 07/29/20 09:13 Omeprazole (PriLOSEC) 40 mg DAILY PO 07/26/20 09:00 07/29/20 09:12 Ondansetron HCl (Zofran) 4 mg Q8H PRN PO NAUSEA OR VOMITING 07/25/20 14:45 Phenyleph/Shark Oil/Min Oil/Petrol (Preparation H Ointment) QIDP PRN [place] ITCHING 07/25/20 14:15 07/28/20 09:05 DC Phenyleph/Shark Oil/Min Oil/Petrol (Preparation H Ointment) APPLY TO RECTAL AREA QIDP PRN [place] ITCHING 07/28/20 09:15 Polyethylene Glycol (Miralax) 1 pkt DAILY PO 07/26/20 09:00 07/26/20 07:30 Potassium Chloride (Micro-K Extencaps) 40 meq BID PO 07/25/20 21:00 07/25/20 15:07 DC Potassium Chloride (Micro-K Extencaps) 40 meq DAILY PO 07/26/20 09:00 07/29/20 11:55 Sodium Chloride (Sodium Chloride) 3 gm Q8H PO 07/25/20 22:00 07/28/20 08:56 DC 07/28/20 06:17 Tamsulosin HCl (Flomax) 0.4 mg DAILY PO 07/26/20 09:00 07/29/20 09:13 Ursodiol (Actigall) 300 mg TID PO 07/25/20 21:00 07/29/20 09:13 LYNDSEY AVENDANO MD Jul 29, 2020 12:42
[2020-07-29 14:00] VITALS: BP 130/84
[2020-07-29 20:00] VITALS: BP 159/89
[2020-07-30 06:03] VITALS: BP 155/70
[2020-07-30] MEDS: SYMBICORT 160/4.5MCG INHALER 6GM INH SCH ×2 (07:28→19:36)
[2020-07-30] MEDS: HumaLOG INSULIN (NovoLOG) PER UNIT SC SCH ×4 (07:42→20:40)
[2020-07-30] MEDS: ursodioL 300 MG CAP PO SCH ×3 (07:42→20:39)
[2020-07-30] MEDS: ASPIRIN 81 MG CHEW TABLET PO SCH (07:42)
[2020-07-30] MEDS: FLUDROCORTISONE ACETATE 0.1 MG TAB PO SCH (07:42)
[2020-07-30] MEDS: lisinopriL 20 MG TAB PO SCH (07:42)
[2020-07-30] MEDS: atenoloL 50 MG TAB PO SCH (07:45)
[2020-07-30] MEDS: POTASSIUM CHLORIDE 10 MEQ SR TABLET PO SCH (07:45)
[2020-07-30] MEDS: OMEGA-3 1000MG CAPSULE PO SCH (07:45)
[2020-07-30] MEDS: OMEPRAZOLE 20 MG CAP PO SCH (07:46)
[2020-07-30] MEDS: ENOXAPARIN 40MG/0.4ML SYRINGE (J1650 PER 10MG) SC SCH (07:46)
[2020-07-30] MEDS: ANUSOL HC CREAM 30GM TOP SCH (07:46)
[2020-07-30] MEDS: DOCUSATE SODIUM 100 MG CAP PO SCH ×2 (07:47→20:40)
[2020-07-30] MEDS: amLODIPine 10 MG TAB PO SCH (07:47)
[2020-07-30] MEDS: MIRALAX *UNIT DOSE* 17GM PACKET PO SCH (07:47)
[2020-07-30] MEDS: TAMSULOSIN 0.4 MG CAP PO SCH (07:47)
--- NOTE | 2020-07-30 13:12 | IPNPDOC ---
PM&R Progress Note DATE OF SERVICE: Jul 30, 2020 Vat Packer Progress Note DATE OF ADMISSION: Jul 25, 2020 at 13:32 DATE OF SERVICE: Jul 30, 2020 Vat Packer Progress Note INPATIENT REHABILITATION ADMISSION DAY: #6 CHIEF COMPLAINT: Aphasia. Resolving Right Visual Field Cut. Low back pain with bilateral lower extremity discomfort. 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 [place] [facility] [place] L IPH and IV Extension, given Kcentra and TXA for reversal of Eliquis. He was then Air-transferred to [facility] 07.18.2020. on presentation he had receptive aphasia, had R Upper visual field cut, workup noted for abnormal spot EEG/07.23.20, no clear epileptiform abnormality. ECHO 07.22.20 EF 55%, MRI brain 07.20.2020 Acute/subacute L Temporoparietal lobe with stable surrounding edema and mass effect. CTA no change in hemorrhage nor evidence aneurysm or AVM. He was changed to ASA for a fib. Atenolol titrated up to 100/day for intermittent tachy cardia. Hyponatremia treated with Na 3G TID and started on Florinef BID. Plan was to wean off Na tabs as normalized. Sodium 136 on 07.23. He is enrolled in the SATURN trial. Lipid panel 07.18.20 total cholesterol 95, LDL 45, HDL 36 TG 73, HbA1C 6.4, TSH 0.425 07.18.20. He did well over the weekend, sleeping well, however continues with LBP and bilateral LE discomfort more noticeable as ambulatory distances increase. Took salt tabs and Flourinef with improvement in elecrolyte imbalance, however BP bumped up. REVIEW OF SYSTEMS: The following is a completed review of systems and has been reviewed. Review of systems otherwise unremarkable. PAIN: Patient self reports no pain. EYES: No recent vision changes. EARS, NOSE, & THROAT: No throat pain, or dysphagia, or rhinorrhea. CARDIOVASCULAR: Denies chest pain or palpitations. PULMONARY: Denies shortness of breath. GASTROINTESTINAL: Denies constipation/diarrhea, notes, this morning. GENITOURINARY: Continent. No complaints. MUSCULOSKELETAL: bilateral hip girdle discomfort and complaint of low back pain NEUROLOGICAL:.aphasia, mild left lower extremity weakness HEMATOLOGICAL: no specific complaints SKIN: .widespread psoriasis plaques over trunk, lower abdomen PSYCHIATRIC: Unremarkable. All other review of systems found to be negative. MEDICATIONS: Please see below. PHYSICAL EXAMINATION: VITAL SIGNS: Please see below. GENERAL: Pleasant and cooperative. No acute distress. Alert and oriented times three, occasional word finding difficulties noted. HEENT: PERRL. Extraocular movements intact. Clear conjunctiva, no adenopathy or thyromegaly. Full cervical range of motion without tenderness or spasm. CARDIOVASCULAR: S1, S2 occasional extra beats. LUNGS: Clear to auscultation bilaterally. No wheezes. No rhonchi. ABDOMEN: Soft, nontender, obese. Positive bowel sounds. Normal active bowel sounds, no organomegaly. NEUROLOGICAL: Cranial nerves II through XII intact including visual weston. Sensation grossly intact all 4 extremities. EXTREMITIES: 5/5 left 3+/ 5 right doctor of medicine, elbow flexion, elbow extension, 4/5 bilateral knee extension, foot dorsiflexion, plantar flexion SKIN: Multiple large maculopapular red lesions posterolateral trunk, abdomen. LABORATORY DATA: Please see below. Sodium holding steady 140, K+ 3.6, FBS 113 FUNCTIONAL STATUS: Premorbid: Independent with all activities of daily life as well as mobility. Expressive aphasia, contact-guard assistance for [id number], bed to chair here. Of weight-shifting, drink chance was noted. Requires cues for sequencing and some memory issues. Ambulating significant distances at Mod I today without assistive device.. Will continue work on energy conservation for shortness of breath and low back issues. Reported Mod I for toilet and tub transfers. COMPUTER SYSTEMS ADMINISTRATOR interventions continue, has word finding and other communication challenges. GOALS: Regain baseline level of modified independence ASSESSMENT: Left temporal parietal ICH HTN DM History PE on Eliquis aphasia Hyponatremia/HypoKalemia, normalizing AFib. Psoriasis This is a 55-year-old gentleman with history of hypertension, diabetes, with sudden onset of headache, confusion and right-sided visual field cuts found to have left temporal parietal IPH with extension into the ventricular system at local hospital, transferred to [facility] 07.18.2020, worked up, stabilized and transferred to [facility] for Comprehensive rehabilitation services 07.25.2020 doing well and making rapid progress in his recovery. PLAN: 1. Rehab- PT/OT advance gait and ADls, strengthen/stretch/maintain ROM all 4 limbs, LBP, gait, stability, higher order cognitive functions -COMPUTER SYSTEMS ADMINISTRATOR for communication, swallowing assessments and assist with optimal behavioral strategies to facilitate progress and achievement of greatest potential functional capability. 2. Neuro- s/p ICH, aphasic, no evidence siezures, monitor for progression -c/u ASa and statin for secondary stroke prevention tight lipid control, hold eliquis 3. Cardiac- hx Afib, c/u ASA and beta-dianne, on SATURN trial -HTN c/u Lisinopril, stilll elevated in the 150s. On extra K+ for hypokalemia, normalized, sodium for Hyponatremia, which has now stabilized, have DC'd Na+ and decreased flourinef, on recheck BMP doing well. Will discuss with hospitalist about dc flourinef and continue to monitor BP, will need further medication adjustments to maintain target levels -HLD- c/u CRESTOR 4. Resp -incentive spirometry, RT as indicated, monitor for infection 5. Endo- hx of DM c/u insulin and ISS 7. - check UA, initiate bladder program 8. GI ppx- protonix, 9. MSK-LB pain impacting mobility training and rehab process, possible dural irritation vs OA/DDD impact. Check plain films, include LB spine stabilization rx as part of protocol. PROJECTED DISCHARGE DESTINATION: Home with roommate and reportedly daughter and brother for day time support and any durable medical equipment required to increase functional safety and mobility. PROGNOSIS: Good ESTIMATED LENGTH OF STAY: 7 days. TIME SPENT COUNSELING AND COORDINATING INITIAL CARE: 30 minutes. This document is generated using speech recognition software which may result in grammatical, typographical and individual word errors. Allergies Coded Allergies: Penicillins (Verified Allergy, Unknown, 07/25/20) codeine (Verified Allergy, Unknown, 07/25/20) hydrocodone (Verified Allergy, Unknown, 07/25/20) Vital Signs Vital Signs Date Time Temp Pulse Resp B/P (MAP) Pulse Ox O2 Delivery O2 Flow Rate FiO2 07/30/20 07:47 73 155/70 07/30/20 06:03 98.2 18 97 Room Air Laboratory Data Labs 24H Laboratory Tests 2 07/29/20 16:31: Bedside Glucose (Misc Panel) 169H 07/29/20 20:45: Bedside Glucose (Misc Panel) 138H 07/30/20 05:20: Bedside Glucose (Misc Panel) 134H 07/30/20 12:07: Bedside Glucose (Misc Panel) 113H Current Medications Current Medications Current Medications Medications (Trade) Dose Ordered Sig/Amelia Route PRN Reason Start Time Stop Time Status Last Admin Dose Admin Acetaminophen (Tylenol Tab) 650 mg Q4H PRN PO PAIN / FEVER 07/25/20 14:45 UNV Acetaminophen (Tylenol Tab) 650 mg Q4HP PRN PO MILD PAIN (PS 1-4) 07/25/20 12:00 07/29/20 11:55 Albuterol Sulfate (Proventil, Ventolin Hfa) 2 puff Q4H PRN INH SOB/WHEEZING 07/25/20 14:45 Amlodipine Besylate (Norvasc) 10 mg DAILY PO 07/26/20 09:00 07/30/20 07:47 Aspirin (Aspirin Chewable) 81 mg DAILY PO 07/26/20 09:00 07/30/20 07:42 Atenolol (Tenormin) 100 mg DAILY PO 07/26/20 09:00 07/30/20 07:45 Bisacodyl (Dulcolax Suppository) 10 mg Q3DP PRN [place] CONSTIPATION 07/25/20 14:45 Budesonide/ Formoterol Fumarate (Symbicort 160/ 4.5mcg) 2 puff RBID INH 07/25/20 20:00 07/30/20 07:28 Dextrose (Dextrose 50%) 25 ml ASDIRECTED PRN IV SEE LABEL COMMENTS 07/25/20 15:00 Docusate Sodium (Colace) 100 mg BID PO 07/25/20 21:00 07/27/20 21:31 Enoxaparin Sodium (Lovenox) 40 mg DAILY SC 07/26/20 09:00 07/30/20 07:46 Fish Oil ([place]-3 (1000mg)) 1 cap DAILY PO 07/26/20 09:00 07/30/20 07:45 Fludrocortisone Acetate (Florinef) 0.1 mg BID PO 07/25/20 21:00 07/25/20 14:50 DC Fludrocortisone Acetate (Florinef) 0.1 mg BID PO 07/25/20 21:00 07/28/20 08:56 DC 07/28/20 08:13 Fludrocortisone Acetate (Florinef) 0.1 mg DAILY PO 07/28/20 09:00 07/30/20 07:42 Glucagon (Glucagon) 1 mg ASDIRECTED PRN SC SEE LABEL COMMENTS 07/25/20 15:00 Glucose (Glucose) 16 GM ASDIRECTED PRN PO SEE LABEL COMMENTS 07/25/20 15:00 Home Med (Med Rec Complete!) ASDIRECTED XX 07/25/20 14:30 07/25/20 14:52 DC Hydrocortisone (Proctosol Hc) TO RECTAL AREA DAILY TOP 07/26/20 09:00 07/28/20 09:03 DC 07/26/20 09:04 Hydrocortisone (Proctosol Hc) apply to plaques o... DAILY TOP 07/28/20 09:00 07/30/20 07:46 Insulin Human Lispro (HumaLOG INSULIN) SEE PROTOCOL TABLE AC SC 07/25/20 17:30 07/30/20 12:38 Insulin Human Lispro (HumaLOG INSULIN) SEE PROTOCOL TABLE QHS SC 07/25/20 21:00 07/26/20 21:48 Lisinopril (Prinivil) 20 mg DAILY PO 07/26/20 09:00 07/30/20 07:42 Omeprazole (PriLOSEC) 40 mg DAILY PO 07/26/20 09:00 07/30/20 07:46 Ondansetron HCl (Zofran) 4 mg Q8H PRN PO NAUSEA OR VOMITING 07/25/20 14:45 Phenyleph/Shark Oil/Min Oil/Petrol (Preparation H Ointment) QIDP PRN [place] ITCHING 07/25/20 14:15 07/28/20 09:05 DC Phenyleph/Shark Oil/Min Oil/Petrol (Preparation H Ointment) APPLY TO RECTAL AREA QIDP PRN [place] ITCHING 07/28/20 09:15 Polyethylene Glycol (Miralax) 1 pkt DAILY PO 07/26/20 09:00 07/26/20 07:30 Potassium Chloride (Micro-K Extencaps) 40 meq BID PO 07/25/20 21:00 07/25/20 15:07 DC Potassium Chloride (Micro-K Extencaps) 40 meq DAILY PO 07/26/20 09:00 07/30/20 07:45 Sodium Chloride (Sodium Chloride) 3 gm Q8H PO 07/25/20 22:00 07/28/20 08:56 DC 07/28/20 06:17 Tamsulosin HCl (Flomax) 0.4 mg DAILY PO 07/26/20 09:00 07/30/20 07:47 Ursodiol (Actigall) 300 mg TID PO 07/25/20 21:00 07/30/20 07:42 LYNDSEY AVENDANO MD Jul 30, 2020 13:12
[2020-07-30 14:00] VITALS: BP 119/78
[2020-07-30 20:00] VITALS: BP 146/90
[2020-07-30] MEDS: amLODIPine 5 MG TAB PO SCH (20:40)
[2020-07-31 06:00] VITALS: BP 158/96
[2020-07-31] MEDS: amLODIPine 10 MG TAB PO SCH (06:50)
[2020-07-31 06:52] LABS: HEMATOCRIT 48.6 % (42.0-52.0); HEMOGLOBIN 16.2 g/dl (13.5-17.5); MEAN CORPUSCULAR HEMOGLOBIN 28.6 pg (27.0-33.0); MEAN CORPUSCULAR HGB CONC 33.3 g/dl (32.0-36.5); MEAN CORPUSCULAR VOLUME 85.9 fl (80.0-96.0); PLATELET COUNT, AUTOMATED 406 10^3/uL (150-450); RED BLOOD COUNT 5.66 10^6/uL (4.30-6.10); WHITE BLOOD COUNT 9.2 10^3/uL (4.0-10.0)
[2020-07-31 07:23] LABS: BLOOD UREA NITROGEN 12 MG/DL (7-18); CARBON DIOXIDE LEVEL 28 MEQ/L (21-32); CHLORIDE LEVEL 106 MEQ/L (98-107); CREATININE FOR GFR 0.95 MG/DL (0.70-1.30); GLOMERULAR FILTRATION RATE > 60.0 (>56); GLUCOSE, FASTING 131 MG/DL (70-100); POTASSIUM SERUM 3.9 MEQ/L (3.5-5.1); SODIUM LEVEL 141 MEQ/L (136-145)
[2020-07-31] MEDS: SYMBICORT 160/4.5MCG INHALER 6GM INH SCH ×2 (07:32→19:53)
[2020-07-31] MEDS: HumaLOG INSULIN (NovoLOG) PER UNIT SC SCH ×4 (07:48→21:00)
[2020-07-31] MEDS: OMEPRAZOLE 20 MG CAP PO SCH (07:49)
[2020-07-31] MEDS: OMEGA-3 1000MG CAPSULE PO SCH (07:49)
[2020-07-31] MEDS: ENOXAPARIN 40MG/0.4ML SYRINGE (J1650 PER 10MG) SC SCH (07:49)
[2020-07-31] MEDS: atenoloL 50 MG TAB PO SCH (07:50)
[2020-07-31] MEDS: ursodioL 300 MG CAP PO SCH ×3 (07:51→21:00)
[2020-07-31] MEDS: ASPIRIN 81 MG CHEW TABLET PO SCH (07:51)
[2020-07-31] MEDS: POTASSIUM CHLORIDE 10 MEQ SR TABLET PO SCH (07:51)
[2020-07-31] MEDS: TAMSULOSIN 0.4 MG CAP PO SCH (07:52)
[2020-07-31] MEDS: MIRALAX *UNIT DOSE* 17GM PACKET PO SCH (07:52)
[2020-07-31] MEDS: DOCUSATE SODIUM 100 MG CAP PO SCH ×2 (07:52→20:59)
[2020-07-31] MEDS: lisinopriL 20 MG TAB PO SCH (07:52)
[2020-07-31] MEDS: ANUSOL HC CREAM 30GM TOP SCH (07:53)
--- NOTE | 2020-07-31 09:31 | IPNPDOC ---
PM&R Progress Note DATE OF SERVICE: Jul 31, 2020 Supervisor [employer] Progress Note DATE OF ADMISSION: Jul 25, 2020 at 13:32 INPATIENT REHABILITATION ADMISSION DAY: #7 CHIEF COMPLAINT: Aphasia. Resolving Right Visual Field Cut. Low back pain with bilateral lower extremity discomfort. 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 He was seen at [facility] - [place] head showed L IPH and IV Extension, given Kcentra and TXA for reversal of Eliquis. He was then Air-transferred to [facility] 07.18.2020. on presentation he had receptive aphasia, had R Upper visual field cut, workup noted for abnormal spot EEG/07.23.20, no clear epileptiform abnormality. ECHO 07.22.20 EF 55%, MRI brain 07.20.2020 Acute/suba cute L Temporoparietal lobe with stable surrounding edema and mass effect. CTA no change in hemorrhage nor evidence aneurysm or AVM. He was changed to ASA for a fib. Atenolol titrated up to 100/day for intermittent tachy cardia. Hyponatremia treated with Na 3G TID and started on Florinef BID now with normalized electrolytes have weaned off Na tabs and Flourinef. Sodium 141, K+ 3.9. He is enrolled in the SATURN trial. He is sleeping well, however continues with LBP and bilateral LE discomfort more noticeable as ambulatory distances increase, as well as BP escalations in the 160s. Judgement and insight remain lacking. Radiographic series noted for DDD, L5/S1 listhesis and disc space narrowing, L4/5 mild disc space narrowing, probable HNP and polyradiculopathy further complicating functional capabilities. REVIEW OF SYSTEMS: The following is a completed review of systems and has been reviewed. Review of systems otherwise unremarkable. PAIN: Patient self reports no pain. EYES: No recent vision changes. EARS, NOSE, & THROAT: No throat pain, or dysphagia, or rhinorrhea. CARDIOVASCULAR: Denies chest pain or palpitations. PULMONARY: Denies shortness of breath. GASTROINTESTINAL: Denies constipation/diarrhea, notes, this morning. GENITOURINARY: Continent. No complaints. MUSCULOSKELETAL: bilateral hip girdle discomfort and complaint of low back pain NEUROLOGICAL:.aphasia, mild left lower extremity weakness HEMATOLOGICAL: no specific complaints SKIN: .widespread psoriasis plaques over trunk, lower abdomen PSYCHIATRIC: Unremarkable. All other review of systems found to be negative. MEDICATIONS: Please see below. PHYSICAL EXAMINATION: VITAL SIGNS: Please see below. GENERAL: Pleasant and cooperative. No acute distress. Occasional word finding difficulties noted. Tried to rationalize reason why he didnt need to practice falls recovery was that his living space was too small for him to fall in. Had difficulty processing correlation of need to gain better control over BP in hope to prevent subsequent CVA/Bleeds. HEENT: PERRL. Extraocular movements intact. CARDIOVASCULAR: S1, S2 occasional extra beats. LUNGS: Clear to auscultation bilaterally. No wheezes. No rhonchi. ABDOMEN: Soft, nontender, obese. Positive bowel sounds. Normal active bowel sounds, no organomegaly. SKIN: Multiple large maculopapular red lesions posterolateral trunk, abdomen. LABORATORY DATA: Please see below. Sodium holding steady 141, K+ 3.9, FBS 113 FUNCTIONAL STATUS: Premorbid: Independent with all activities of daily life as well as mobility. Expressive aphasia, stand by assistance for [id number], bed to chair. Requires cues for motor planning and sequencing and some memory issues. Amb ulating significant distances at Mod I without assistive device. Working on energy conservation, safety, for shortness of breath and low back issues. Reported Mod I for toilet and tub transfers. COLLECTIONS AGENT interventions continue, has word finding, judgement and other communication challenges. GOALS: Regain baseline level of modified independence ASSESSMENT: Left temporal parietal ICH HTN DM History PE on Eliquis aphasia Hyponatremia/HypoKalemia, normalizing AFib. Psoriasis Low back pain with L5/S1 Spondylolisthesis, DDD and probable radiculopathy This is a 55-year-old gentleman with history of hypertension, diabetes, with sudden onset of headache, confusion and right-sided visual field cuts found to have left temporal parietal IPH with extension into the ventricular system at local hospital, transferred to [facility] 07.18.2020, worked up, stabilized and transferred to [facility] for Comprehensive rehabilitation services 07.25.2020 doing well and making rapid progress in his recovery. Given his current circumstances, BP control remains concerning, discussed case with hospitalist Dr. Richardson and will make adjustments, monitor for orthostatic changes and observe for BP fluctuations in relationship to increased levels of physical activities PLAN: 1. Rehab- PT/OT advance gait and ADls, strengthen/stretch/maintain ROM all 4 limbs, LBP, gait, stability, higher order cognitive functions -COLLECTIONS AGENT for communication, swallowing assessments and assist with optimal behavior al strategies to facilitate progress and achievement of greatest potential functional capability. LS Support and spine stabilization exercises recommended, will need further followup post discharge. 2. Neuro- s/p ICH, aphasic, no evidence siezures, monitor for progression -c/u ASa and statin for secondary stroke prevention tight lipid control, hold eliquis 3. Cardiac- hx Afib, c/u ASA and beta-dianne, on SATURN trial -HTN c/u Lisinopril, stilll elevated in the 150s-160s, improved this morning to 120s after morning meds. On extra K+ for hypokalemia, dc'd sodium/Flourinef for Hyponatremia, which has now stabilized, on recheck BMP doing well. May need further medication adjustments to maintain target levels -HLD- c/u CRESTOR 4. Resp -incentive spirometry, RT as indicated, monitor for infection 5. Endo- hx of DM c/u insulin and ISS good control FBS 131 7. - checked UA stable 8. GI ppx- protonix, 9. MSK-LB pain impacting mobility training and rehab process, possible dural irritation and OA/DDD impact. Include LB spine stabilization rx as part of protocol. PROJECTED DISCHARGE DESTINATION: Home with roommate and reportedly daughter and brother for day time support and any durable medical equipment required to increase functional safety and mobility. PROGNOSIS: Good ESTIMATED LENGTH OF STAY: 7-10 days. TIME SPENT COUNSELING AND COORDINATING INITIAL CARE: 30 minutes. This document is generated using speech recognition software which may result in grammatical, typographical and individual word errors. Allergies Coded Allergies: Penicillins (Verified Allergy, Unknown, 07/25/20) codeine (Verified Allergy, Unknown, 07/25/20) hydrocodone (Verified Allergy, Unknown, 07/25/20) Vital Signs Vital Signs Date Time Temp Pulse Resp B/P (MAP) Pulse Ox O2 Delivery O2 Flow Rate FiO2 07/31/20 07:50 67 128/62 07/31/20 06:00 98.1 18 95 Room Air Laboratory Data CBC/BMP Laboratory Tests 07/31/20 06:38 Labs 24H Laboratory Tests 2 07/30/20 12:07: Bedside Glucose (Misc Panel) 113H 07/30/20 16:43: Bedside Glucose (Misc Panel) 98 07/30/20 20:23: Bedside Glucose (Misc Panel) 174H 07/31/20 06:33: Bedside Glucose (Misc Panel) 131H 07/31/20 06:38: Nucleated Red Blood Cells % (auto) 0.0, Anion Gap 7L, Glomerular Filtration Rate > 60.0, Calcium Level 9.0 Current Medications Current Medications Current Medications Medications (Trade) Dose Ordered Sig/Amelia Route PRN Reason Start Time Stop Time Status Last Admin Dose Admin Acetaminophen (Tylenol Tab) 650 mg Q4H PRN PO PAIN / FEVER 07/25/20 14:45 UNV Acetaminophen (Tylenol Tab) 650 mg Q4HP PRN PO MILD PAIN (PS 1-4) 07/25/20 12:00 07/29/20 11:55 Albuterol Sulfate (Proventil, Ventolin Hfa) 2 puff Q4H PRN INH SOB/WHEEZING 07/25/20 14:45 Amlodipine Besylate (Norvasc) 5 mg QHS PO 07/30/20 21:00 07/30/20 20:40 Amlodipine Besylate (Norvasc) 10 mg DAILY PO 07/26/20 09:00 07/31/20 06:50 Aspirin (Aspirin Chewable) 81 mg DAILY PO 07/26/20 09:00 07/31/20 07:51 Atenolol (Tenormin) 100 mg DAILY PO 07/26/20 09:00 07/31/20 07:50 Bisacodyl (Dulcolax Suppository) 10 mg Q3DP PRN [place] CONSTIPATION 07/25/20 14:45 Budesonide/ Formoterol Fumarate (Symbicort 160/ 4.5mcg) 2 puff RBID INH 07/25/20 20:00 07/31/20 07:32 Dextrose (Dextrose 50%) 25 ml ASDIRECTED PRN IV SEE LABEL COMMENTS 07/25/20 15:00 Docusate Sodium (Colace) 100 mg BID PO 07/25/20 21:00 07/31/20 07:52 Enoxaparin Sodium (Lovenox) 40 mg DAILY SC 07/26/20 09:00 07/31/20 07:49 Fish Oil ([place]-3 (1000mg)) 1 cap DAILY PO 07/26/20 09:00 07/31/20 07:49 Fludrocortisone Acetate (Florinef) 0.1 mg BID PO 07/25/20 21:00 07/25/20 14:50 DC Fludrocortisone Acetate (Florinef) 0.1 mg BID PO 07/25/20 21:00 07/28/20 08:56 DC 07/28/20 08:13 Fludrocortisone Acetate (Florinef) 0.1 mg DAILY PO 07/28/20 09:00 07/30/20 14:14 DC 07/30/20 07:42 Glucagon (Glucagon) 1 mg ASDIRECTED PRN SC SEE LABEL COMMENTS 07/25/20 15:00 Glucose (Glucose) 16 GM ASDIRECTED PRN PO SEE LABEL COMMENTS 07/25/20 15:00 Home Med (Med Rec Complete!) ASDIRECTED XX 07/25/20 14:30 07/25/20 14:52 DC Hydrocortisone (Proctosol Hc) TO RECTAL AREA DAILY TOP 07/26/20 09:00 07/28/20 09:03 DC 07/26/20 09:04 Hydrocortisone (Proctosol Hc) apply to plaques o... DAILY TOP 07/28/20 09:00 07/30/20 07:46 Insulin Human Lispro (HumaLOG INSULIN) SEE PROTOCOL TABLE AC SC 07/25/20 17:30 07/31/20 07:48 Insulin Human Lispro (HumaLOG INSULIN) SEE PROTOCOL TABLE QHS SC 07/25/20 21:00 07/26/20 21:48 Lisinopril (Prinivil) 20 mg DAILY PO 07/26/20 09:00 07/31/20 07:52 Omeprazole (PriLOSEC) 40 mg DAILY PO 07/26/20 09:00 07/31/20 07:49 Ondansetron HCl (Zofran) 4 mg Q8H PRN PO NAUSEA OR VOMITING 07/25/20 14:45 Phenyleph/Shark Oil/Min Oil/Petrol (Preparation H Ointment) QIDP PRN [place] ITCHING 07/25/20 14:15 07/28/20 09:05 DC Phenyleph/Shark Oil/Min Oil/Petrol (Preparation H Ointment) APPLY TO RECTAL AREA QIDP PRN [place] ITCHING 07/28/20 09:15 Polyethylene Glycol (Miralax) 1 pkt DAILY PO 07/26/20 09:00 07/26/20 07:30 Potassium Chloride (Micro-K Extencaps) 40 meq BID PO 07/25/20 21:00 07/25/20 15:07 DC Potassium Chloride (Micro-K Extencaps) 40 meq DAILY PO 07/26/20 09:00 07/31/20 07:51 Sodium Chloride (Sodium Chloride) 3 gm Q8H PO 07/25/20 22:00 07/28/20 08:56 DC 07/28/20 06:17 Tamsulosin HCl (Flomax) 0.4 mg DAILY PO 07/26/20 09:00 07/31/20 07:52 Ursodiol (Actigall) 300 mg TID PO 07/25/20 21:00 07/31/20 07:51 LYNDSEY AVENDANO MD Jul 31, 2020 09:31
[2020-07-31 14:00] VITALS: BP 125/70
[2020-07-31 20:20] VITALS: BP 144/80
[2020-07-31] MEDS: amLODIPine 5 MG TAB PO SCH (21:00)
[2020-08-01 05:48] VITALS: BP 137/88
[2020-08-01] MEDS: SYMBICORT 160/4.5MCG INHALER 6GM INH SCH ×2 (08:11→19:23)
[2020-08-01 08:15] LABS: BLOOD UREA NITROGEN 15 MG/DL (7-18); CALCIUM LEVEL 9.2 MG/DL (8.5-10.1); CARBON DIOXIDE LEVEL 28 MEQ/L (21-32); CHLORIDE LEVEL 106 MEQ/L (98-107); GLOMERULAR FILTRATION RATE > 60.0 (>56); GLUCOSE, FASTING 142 MG/DL (70-100); POTASSIUM SERUM 4.2 MEQ/L (3.5-5.1); SODIUM LEVEL 140 MEQ/L (136-145)
[2020-08-01] MEDS: POTASSIUM CHLORIDE 10 MEQ SR TABLET PO SCH (08:30)
[2020-08-01] MEDS: DOCUSATE SODIUM 100 MG CAP PO SCH ×2 (08:30→21:00)
[2020-08-01] MEDS: TAMSULOSIN 0.4 MG CAP PO SCH (08:30)
[2020-08-01] MEDS: ASPIRIN 81 MG CHEW TABLET PO SCH (08:30)
[2020-08-01] MEDS: OMEPRAZOLE 20 MG CAP PO SCH (08:30)
[2020-08-01] MEDS: ursodioL 300 MG CAP PO SCH ×3 (08:30→21:01)
[2020-08-01] MEDS: HumaLOG INSULIN (NovoLOG) PER UNIT SC SCH ×4 (08:30→21:00)
[2020-08-01] MEDS: MIRALAX *UNIT DOSE* 17GM PACKET PO SCH (08:30)
[2020-08-01] MEDS: amLODIPine 10 MG TAB PO SCH (08:31)
[2020-08-01] MEDS: ENOXAPARIN 40MG/0.4ML SYRINGE (J1650 PER 10MG) SC SCH (08:31)
[2020-08-01] MEDS: OMEGA-3 1000MG CAPSULE PO SCH (08:31)
[2020-08-01] MEDS: lisinopriL 20 MG TAB PO SCH (08:31)
[2020-08-01] MEDS: atenoloL 50 MG TAB PO SCH (08:32)
[2020-08-01] MEDS: ANUSOL HC CREAM 30GM TOP SCH (08:33)
[2020-08-01 13:00] VITALS: BP_SYST 120; BP_SYST 135; BP_DIAS 56; BP_DIAS 69; BP_DIAS 84
[2020-08-01 14:00] VITALS: BP 117/58
--- NOTE | 2020-08-01 18:35 | IPNPDOC ---
PM&R Progress Note DATE OF SERVICE: Aug 01, 2020 Insurance Attorney Progress Note DATE OF ADMISSION: Jul 25, 2020 at 13:32 INPATIENT REHABILITATION ADMISSION DAY: #[8] CHIEF COMPLAINT: Aphasia. Resolving Right Visual Field Cut. Low back pain with bilateral lower extremity discomfort. 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 He was seen at [facility], CT head showed L IPH and IV Extension, given Kcentra and TXA for reversal of Eliquis. He was then Air-transferred to [facility] 07.18.2020. on presentation he had receptive aphasia, had R Upper visual field cut, workup noted for abnormal spot EEG/07.23.20, no clear epileptiform abnormality. ECHO 07.22.20 EF 55%, MRI brain 07.20.2020 Acute/s ubacute L Temporoparietal lobe with stable surrounding edema and mass effect. CTA no change in hemorrhage nor evidence aneurysm or AVM. He was changed to ASA for a fib. Atenolol titrated up to 100/day for intermittent tachy cardia. Hyponatremia treated with Na 3G TID and started on Florinef BID now with normalized electrolytes have weaned off Na tabs and Flourinef. Sodium 141, K+ 3.9. He is enrolled in the SATURN trial. He is sleeping well, however continues with LBP and bilateral LE discomfort more noticeable as ambulatory distances increase, as well as BP escalations in the 160s. Judgement and insight remain lacking. Radiographic series noted for DDD, L5/S1 listhesis and disc space narrowing, L4/5 mild disc space narrowing, probable HNP and polyradiculopathy further complicating functional capabilities, improving with increased ambulation and decreased prolonged sitting activities. REVIEW OF SYSTEMS: The following is a completed review of systems and has been reviewed. Review of systems otherwise unremarkable. PAIN: Patient self reports no pain. EYES: No recent vision changes. EARS, NOSE, & THROAT: No throat pain, or dysphagia, or rhinorrhea. CARDIOVASCULAR: Denies chest pain or palpitations. PULMONARY: Denies shortness of breath. GASTROINTESTINAL: Denies constipation/diarrhea, notes, this morning. GENITOURINARY: Continent. No complaints. MUSCULOSKELETAL: bilateral hip girdle discomfort and complaint of low back pain NEUROLOGICAL:.aphasia, mild left lower extremity weakness HEMATOLOGICAL: no specific complaints SKIN: .widespread psoriasis plaques over trunk, lower abdomen PSYCHIATRIC: Unremarkable. All other review of systems found to be negative. MEDICATIONS: Please see below. PHYSICAL EXAMINATION: VITAL SIGNS: Please see below. Positive 15 point drop sit to stand 135 to 120 GENERAL: Pleasant and cooperative. No acute distress. Occasional word finding difficulties noted. Discussed importance of BP control, future stroke prevention, dietary adjustments, need to monitor for orthostatic changes, risk of falls with medication changes, etc. Had some difficulty processing correlation of need to gain better control over BP in hope to prevent subsequent CVA/Bleeds as he "always has had BP problems" since he was 18. But agrees to work towards new AHA guidelines 120/70. HEENT: Extraocular movements intact. CARDIOVASCULAR: irregular S1 S2 with radial pulse about 80 LUNGS: Clear to auscultation bilaterally. No wheezes. No rhonchi. ABDOMEN: Soft, nontender, obese. Positive bowel sounds. Normal active bowel sounds, no organomegaly. SKIN: Multiple large maculopapular red lesions posterolateral trunk, abdomen. LABORATORY DATA: Please see below. Sodium holding steady FBS 136 EKG A Fib VR 98 possible old OR FUNCTIONAL STATUS: Premorbid: Independent with all activities of daily life as well as mobility. Mild word finding difficulties, MOD I for [id number], bed to chair and ambulation. Requires cues for motor planning and sequencing and some memory issues, for example safety issues in showering activities. Ambulating significant distances at Mod I without assistive device. Working on energy conservation, safety, for shortness of breath. Reported Mod I for toilet and tub transfers. MANAGER SERVICE DESK interventions continue, has word finding, judgement and other communication challenges. GOALS: Regain baseline level of modified independence ASSESSMENT: Left temporal parietal ICH HTN DM History PE on Eliquis aphasia Hyponatremia/HypoKalemia, normalizing AFib. Psoriasis Low back pain with L5/S1 Spondylolisthesis, DDD and probable radiculopathy This is a 55-year-old gentleman with history of hypertension, diabetes, with sudden onset of headache, confusion and right-sided visual field cuts found to have left temporal parietal IPH with extension into the ventricular system at local hospital, transferred to [facility] 07.18.2020, worked up, stabilized and transferred to [facility] for Comprehensive rehabilitation services 07.25.2020 doing well and making rapid progress in his recovery. BP control improving, however orthostatic changes and resumption of active Afib with somewhat rapid response at rest noted. Discussed with Hospitalist and agree with suggested med changes to Atenolol/Lisinpril. Will continue to observe for BP fluctuations in relationship to increased levels of physical activities. PLAN: 1. Rehab- PT/OT advance gait and ADls, strengthen/stretch/maintain ROM all 4 limbs, LBP, gait, stability, higher order cognitive functions -MANAGER SERVICE DESK for communication, swallowing assessments and assist with optimal behavioral strategies to facilitate progress and achievement of greatest potential functional capability. LS spine stabilization exercises recommended, will need further followup post discharge. Monitor BP throughout therapy sessions. 2. Neuro- s/p ICH, aphasic, no evidence siezures, monitor for progression -c/u ASa and statin for secondary stroke prevention tight lipid control, hold eliquis 3. Cardiac- recurrent Afib, c/u ASA and beta-dianne, on SATURN trial -HTN , improved to 120s, orthostatic.. BMP doing well. May need further medication adjustments to maintain target levels -HLD- c/u CRESTOR 4. Endo- hx of DM c/u insulin and ISS good control FBS 131 5. - checked UA stable 6. GI ppx- protonix, 7. MSK-LB pain less impact on mobility training and rehab process. Include LB sp ine stabilization rx as part of protocol. PROJECTED DISCHARGE DESTINATION: Home with roommate and reportedly daughter and brother for day time support and any durable medical equipment required to i ncrease functional safety and mobility. PROGNOSIS: Good ESTIMATED LENGTH OF STAY: 7 days. TIME SPENT COUNSELING AND COORDINATING INITIAL CARE: 30 minutes. This document is generated using speech recognition software which may result in grammatical, typographical and individual word errors. Allergies Coded Allergies: Penicillins (Verified Allergy, Unknown, 07/25/20) codeine (Verified Allergy, Unknown, 07/25/20) hydrocodone (Verified Allergy, Unknown, 07/25/20) Vital Signs Vital Signs Date Time Temp Pulse Resp B/P (MAP) Pulse Ox O2 Delivery O2 Flow Rate FiO2 08/01/20 14:00 98.8 68 18 117/58 (77) 95 Room Air Laboratory Data CBC/BMP Laboratory Tests 08/01/20 07:19 Labs 24H Laboratory Tests 2 07/31/20 20:40: Bedside Glucose (Misc Panel) 160H 08/01/20 05:02: Bedside Glucose (Misc Panel) 136H 08/01/20 07:19: Anion Gap 6L, Glomerular Filtration Rate > 60.0, Calcium Level 9.2 08/01/20 11:38: Bedside Glucose (Misc Panel) 114H 08/01/20 16:39: Bedside Glucose (Misc Panel) 129H Current Medications Current Medications Current Medications Medications (Trade) Dose Ordered Sig/Amelia Route PRN Reason Start Time Stop Time Status Last Admin Dose Admin Acetaminophen (Tylenol Tab) 650 mg Q4H PRN PO PAIN / FEVER 07/25/20 14:45 UNV Acetaminophen (Tylenol Tab) 650 mg Q4HP PRN PO MILD PAIN (PS 1-4) 07/25/20 12:00 07/29/20 11:55 Albuterol Sulfate (Proventil, Ventolin Hfa) 2 puff Q4H PRN INH SOB/WHEEZING 07/25/20 14:45 Amlodipine Besylate (Norvasc) 5 mg QHS PO 07/30/20 21:00 08/01/20 17:15 DC 07/31/20 21:00 Amlodipine Besylate (Norvasc) 10 mg DAILY PO 07/26/20 09:00 08/01/20 17:15 DC 08/01/20 08:31 Aspirin (Aspirin Chewable) 81 mg DAILY PO 07/26/20 09:00 08/01/20 08:30 Atenolol (Tenormin) 100 mg DAILY PO 07/26/20 09:00 08/01/20 17:15 DC 08/01/20 08:32 Bisacodyl (Dulcolax Suppository) 10 mg Q3DP PRN [place] CONSTIPATION 07/25/20 14:45 Budesonide/ Formoterol Fumarate (Symbicort 160/ 4.5mcg) 2 puff RBID INH 07/25/20 20:00 08/01/20 08:11 Dextrose (Dextrose 50%) 25 ml ASDIRECTED PRN IV SEE LABEL COMMENTS 07/25/20 15:00 Docusate Sodium (Colace) 100 mg BID PO 07/25/20 21:00 08/01/20 08:30 Enoxaparin Sodium (Lovenox) 40 mg DAILY SC 07/26/20 09:00 08/01/20 08:31 Fish Oil ([place]-3 (1000mg)) 1 cap DAILY PO 07/26/20 09:00 08/01/20 08:31 Fludrocortisone Acetate (Florinef) 0.1 mg BID PO 07/25/20 21:00 07/25/20 14:50 DC Fludrocortisone Acetate (Florinef) 0.1 mg BID PO 07/25/20 21:00 07/28/20 08:56 DC 07/28/20 08:13 Fludrocortisone Acetate (Florinef) 0.1 mg DAILY PO 07/28/20 09:00 07/30/20 14:14 DC 07/30/20 07:42 Glucagon (Glucagon) 1 mg ASDIRECTED PRN SC SEE LABEL COMMENTS 07/25/20 15:00 Glucose (Glucose) 16 GM ASDIRECTED PRN PO SEE LABEL COMMENTS 07/25/20 15:00 Home Med (Med Rec Complete!) ASDIRECTED XX 07/25/20 14:30 07/25/20 14:52 DC Hydrocortisone (Proctosol Hc) TO RECTAL AREA DAILY TOP 07/26/20 09:00 07/28/20 09:03 DC 07/26/20 09:04 Hydrocortisone (Proctosol Hc) apply to plaques o... DAILY TOP 07/28/20 09:00 08/01/20 08:33 Insulin Human Lispro (HumaLOG INSULIN) SEE PROTOCOL TABLE AC SC 07/25/20 17:30 08/01/20 16:54 Insulin Human Lispro (HumaLOG INSULIN) SEE PROTOCOL TABLE QHS SC 07/25/20 21:00 07/26/20 21:48 Lisinopril (Prinivil) 20 mg DAILY PO 07/26/20 09:00 08/01/20 08:31 Metoprolol Tartrate (Lopressor) 25 mg BID PO 08/02/20 09:00 Omeprazole (PriLOSEC) 40 mg DAILY PO 07/26/20 09:00 08/01/20 08:30 Ondansetron HCl (Zofran) 4 mg Q8H PRN PO NAUSEA OR VOMITING 07/25/20 14:45 Phenyleph/Shark Oil/Min Oil/Petrol (Preparation H Ointment) QIDP PRN [place] ITCHING 07/25/20 14:15 07/28/20 09:05 DC Phenyleph/Shark Oil/Min Oil/Petrol (Preparation H Ointment) APPLY TO RECTAL AREA QIDP PRN [place] ITCHING 07/28/20 09:15 Polyethylene Glycol (Miralax) 1 pkt DAILY PO 07/26/20 09:00 08/01/20 08:30 Potassium Chloride (Micro-K Extencaps) 40 meq BID PO 07/25/20 21:00 07/25/20 15:07 DC Potassium Chloride (Micro-K Extencaps) 40 meq DAILY PO 07/26/20 09:00 08/01/20 08:30 Sodium Chloride (Sodium Chloride) 3 gm Q8H PO 07/25/20 22:00 07/28/20 08:56 DC 07/28/20 06:17 Tamsulosin HCl (Flomax) 0.4 mg DAILY PO 07/26/20 09:00 08/01/20 08:30 Ursodiol (Actigall) 300 mg TID PO 07/25/20 21:00 08/01/20 16:31 LYNDSEY AVENDANO MD Aug 01, 2020 18:35
[2020-08-01 20:00] VITALS: BP 152/84
[2020-08-02 06:00] VITALS: BP 140/80
[2020-08-02 07:34] LABS: BLOOD UREA NITROGEN 13 MG/DL (7-18); CALCIUM LEVEL 9.5 MG/DL (8.5-10.1); CARBON DIOXIDE LEVEL 26 MEQ/L (21-32); CHLORIDE LEVEL 106 MEQ/L (98-107); CREATININE FOR GFR 1.05 MG/DL (0.70-1.30); GLOMERULAR FILTRATION RATE > 60.0 (>56); GLUCOSE, FASTING 141 MG/DL (70-100); MAGNESIUM LEVEL 2.3 MG/DL (1.8-2.4); POTASSIUM SERUM 3.8 MEQ/L (3.5-5.1); SODIUM LEVEL 139 MEQ/L (136-145)
--- NOTE | 2020-08-02 08:12 | ECGEPIP ---
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
[2020-08-02] MEDS: DOCUSATE SODIUM 100 MG CAP PO SCH ×2 (09:00→20:20)
[2020-08-02] MEDS: MIRALAX *UNIT DOSE* 17GM PACKET PO SCH (09:00)
[2020-08-02] MEDS: ASPIRIN 81 MG CHEW TABLET PO SCH (09:01)
[2020-08-02] MEDS: ENOXAPARIN 40MG/0.4ML SYRINGE (J1650 PER 10MG) SC SCH (09:01)
[2020-08-02] MEDS: POTASSIUM CHLORIDE 10 MEQ SR TABLET PO SCH (09:02)
[2020-08-02] MEDS: OMEGA-3 1000MG CAPSULE PO SCH (09:02)
[2020-08-02] MEDS: ursodioL 300 MG CAP PO SCH ×3 (09:02→20:19)
[2020-08-02] MEDS: TAMSULOSIN 0.4 MG CAP PO SCH (09:02)
[2020-08-02] MEDS: OMEPRAZOLE 20 MG CAP PO SCH (09:02)
[2020-08-02] MEDS: METOPROLOL TART 25 MG TABLET PO SCH ×2 (09:02→20:19)
[2020-08-02] MEDS: lisinopriL 20 MG TAB PO SCH (09:03)
[2020-08-02] MEDS: ANUSOL HC CREAM 30GM TOP SCH (09:04)
[2020-08-02] MEDS: HumaLOG INSULIN (NovoLOG) PER UNIT SC SCH ×4 (09:04→20:20)
[2020-08-02] MEDS: SYMBICORT 160/4.5MCG INHALER 6GM INH SCH ×2 (09:50→19:55)
[2020-08-02 14:00] VITALS: BP 178/82
[2020-08-02 19:51] VITALS: BP 141/85
[2020-08-03 06:14] VITALS: BP 140/85
[2020-08-03] MEDS: SYMBICORT 160/4.5MCG INHALER 6GM INH SCH ×2 (07:10→19:37)
[2020-08-03 07:19] LABS: HEMOGLOBIN 16.4 g/dl (13.5-17.5); MEAN CORPUSCULAR HEMOGLOBIN 28.1 pg (27.0-33.0); MEAN CORPUSCULAR HGB CONC 32.8 g/dl (32.0-36.5); MEAN CORPUSCULAR VOLUME 85.8 fl (80.0-96.0); PLATELET COUNT, AUTOMATED 451 10^3/uL (150-450); RED BLOOD COUNT 5.83 10^6/uL (4.30-6.10); WHITE BLOOD COUNT 8.1 10^3/uL (4.0-10.0)
[2020-08-03] MEDS: MIRALAX *UNIT DOSE* 17GM PACKET PO SCH (09:00)
[2020-08-03] MEDS: ANUSOL HC CREAM 30GM TOP SCH (09:00)
[2020-08-03] MEDS: DOCUSATE SODIUM 100 MG CAP PO SCH ×2 (09:00→20:45)
[2020-08-03] MEDS: ASPIRIN 81 MG CHEW TABLET PO SCH (09:16)
[2020-08-03] MEDS: OMEPRAZOLE 20 MG CAP PO SCH (09:17)
[2020-08-03] MEDS: METOPROLOL TART 25 MG TABLET PO SCH ×3 (09:20→20:57)
[2020-08-03] MEDS: lisinopriL 20 MG TAB PO SCH (09:20)
[2020-08-03] MEDS: OMEGA-3 1000MG CAPSULE PO SCH (09:20)
[2020-08-03] MEDS: ursodioL 300 MG CAP PO SCH ×3 (09:20→20:57)
[2020-08-03] MEDS: ENOXAPARIN 40MG/0.4ML SYRINGE (J1650 PER 10MG) SC SCH (09:21)
[2020-08-03] MEDS: TAMSULOSIN 0.4 MG CAP PO SCH (09:21)
[2020-08-03] MEDS: POTASSIUM CHLORIDE 10 MEQ SR TABLET PO SCH (09:21)
[2020-08-03] MEDS: HumaLOG INSULIN (NovoLOG) PER UNIT SC SCH ×4 (09:22→20:46)
[2020-08-03 14:00] VITALS: BP 169/70
[2020-08-03 20:54] VITALS: BP 138/82
[2020-08-04 06:00] VITALS: BP 143/80
[2020-08-04] MEDS: SYMBICORT 160/4.5MCG INHALER 6GM INH SCH ×2 (07:27→19:16)
[2020-08-04] MEDS: ASPIRIN 81 MG CHEW TABLET PO SCH (07:39)
[2020-08-04] MEDS: OMEGA-3 1000MG CAPSULE PO SCH (07:39)
[2020-08-04] MEDS: METOPROLOL TART 25 MG TABLET PO SCH ×3 (07:39→20:55)
[2020-08-04] MEDS: POTASSIUM CHLORIDE 10 MEQ SR TABLET PO SCH (07:40)
[2020-08-04] MEDS: TAMSULOSIN 0.4 MG CAP PO SCH (07:40)
[2020-08-04] MEDS: lisinopriL 20 MG TAB PO SCH (07:40)
[2020-08-04] MEDS: ursodioL 300 MG CAP PO SCH ×3 (07:40→20:56)
[2020-08-04] MEDS: OMEPRAZOLE 20 MG CAP PO SCH (07:40)
[2020-08-04] MEDS: HumaLOG INSULIN (NovoLOG) PER UNIT SC SCH ×4 (07:41→20:53)
[2020-08-04] MEDS: ENOXAPARIN 40MG/0.4ML SYRINGE (J1650 PER 10MG) SC SCH (07:41)
[2020-08-04] MEDS: DOCUSATE SODIUM 100 MG CAP PO SCH ×2 (07:41→21:00)
[2020-08-04] MEDS: ANUSOL HC CREAM 30GM TOP SCH (07:42)
[2020-08-04] MEDS: MIRALAX *UNIT DOSE* 17GM PACKET PO SCH (07:42)
--- NOTE | 2020-08-04 09:43 | IPNPDOC ---
PM&R Progress Note DATE OF SERVICE: Aug 04, 2020 Insurance Processing Clerk Progress Note DATE OF ADMISSION: Jul 25, 2020 at 13:32 INPATIENT REHABILITATION ADMISSION DAY: #11 CHIEF COMPLAINT: Aphasia. Resolving Right Visual Field Cut. Low back pain with bilateral lower extremity discomfort. 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 He was seen at [facility], CT head showed L IPH and IV Extension, given Kcentra and TXA for reversal of Eliquis. He was then Air-transferred to [facility] 07.18.2020. on presentation he had receptive aphasia, had R Upper visual field cut, workup noted for abnormal spot EEG/07.23.20, no clear epileptiform abnormality. ECHO 07.22.20 EF 55%, MRI brain 07.20.2020 Acute/subacute L Temporoparietal lobe with stable surrounding edema and mass effect. CTA no change in hemorrhage nor evidence aneurysm or AVM. He was changed to ASA for a fib. Atenolol titrated up to 100/day for intermittent tachy cardia. Hyponatremia treated with Na 3G TID and started on Florinef BID now with normalized electrolytes have weaned off Na tabs and Flourinef. Sodium 141, K+ 3.9. He is enrolled in the SATURN trial. He is sleeping well, h LBP and bilateral LE discomfort improved and BP escalations in the 160s improved with medication shifts. Reverted to active AFib 08.11.2020, VR 100, Appreciate hospitalist input. Judgement and insight remain lacking. Radiographic series noted for DDD, L5/S1 listhesis and disc space narrowing, L4/5 mild disc space narrowing, probable HNP and polyradiculopathy further complicating functional capabilities, improving with increased ambulation and decreased prolonged sitting activities. Mild balance issues, did well with room privileges, still safety issues with bathing to be addressed. Discussed case with hospitalist who suggested consideration of IVC filter since we have limited options for anticoagulation in face of recent ICH and history of prior PE, concern for DVT as contributing factor. IR suggested US to R/O DVT previously and continued efforts to medically optimize afib. REVIEW OF SYSTEMS: The following is a completed review of systems and has been reviewed. Review of systems otherwise unremarkable. PAIN: Patient self reports no pain. EYES: No recent vision changes. EARS, NOSE, & THROAT: No throat pain, or dysphagia, or rhinorrhea. CARDIOVASCULAR: Denies chest pain or palpitations. PULMONARY: Denies shortness of breath. GASTROINTESTINAL: Denies constipation/diarrhea, notes, this morning. GENITOURINARY: Continent. No complaints. MUSCULOSKELETAL: bilateral hip girdle discomfort and complaint of low back pain NEUROLOGICAL:.aphasia, mild left lower extremity weakness HEMATOLOGICAL: no specific complaints SKIN: .widespread psoriasis plaques over trunk, lower abdomen PSYCHIATRIC: Unremarkable. All other review of systems found to be negative. MEDICATIONS: Please see below. PHYSICAL EXAMINATION: VITAL SIGNS: Please see below. Positive 15 point drop sit to stand 135 to 120 last week GENERAL: Pleasant and cooperative. No acute distress. Occasional word finding difficulties noted. Discussed importance of BP control, future stroke prevention, dietary adjustments, need to monitor for orthostatic changes, risk of falls with medication changes, etc. Agrees to work towards new AHA guidelines 120/70. HEENT: Extraocular movements intact. CARDIOVASCULAR: irregular S1 S2 with radial pulse about 80 LUNGS: Clear to auscultation bilaterally. No wheezes. No rhonchi. ABDOMEN: Soft, nontender, obese. Positive bowel sounds. Normal active bowel sounds, no organomegaly. SKIN: Multiple large maculopapular red lesions posterolateral trunk, abdomen, dry, flaky Extremities: no point tenderness no swelling LABORATORY DATA: Please see below. FUNCTIONAL STATUS: Premorbid: Independent with all activities of daily life as well as mobility. Mild word finding difficulties, MOD I for [id number], bed to chair and ambulation. Requires cues for motor planning and sequencing and some memory issues, for example safety issues in showering activities. Ambulating significant distances at Mod I without assistive device, slight balance issues. BOOT AND SHOE REPAIRMAN interventions continue, has word finding, judgement and other communication challenges. GOALS: Regain baseline level of modified independence, CV stability ASSESSMENT: Left temporal parietal ICH HTN DM History PE on Eliquis aphasia Hyponatremia/HypoKalemia, normalized AFib. Psoriasis Low back pain with L5/S1 Spondylolisthesis, DDD and probable radiculopathy Orthostatic hypotension This is a 55-year-old gentleman with history of hypertension, diabetes, with sudden onset of headache, confusion and right-sided visual field cuts found to have left temporal parietal IPH with extension into the ventricular system at local hospital, transferred to [facility] 07.18.2020, worked up, stabilized and transferred to [facility] for Comprehensive rehabilitation services 07.25.2020 doing well and making rapid progress in his recovery. BP control improving, however orthostatic changes and resumption of active Afib with somewhat rapid response at rest noted. Discussed with Hospitalist and agree with suggested med changes to Atenolol/Lisinpril. Will continue to observe for BP fluctuations in relationship to increased levels of physical activities. PLAN: 1. Rehab- PT/OT advance gait and ADls, strengthen/stretch/maintain ROM all 4 limbs, LBP, gait, stability, higher order cognitive functions -BOOT AND SHOE REPAIRMAN for communication, swallowing assessments and assist with optimal behavioral strategies to facilitate progress and achievement of greatest potential functional capability. LS spine stabilization exercises recommended, will need further followup post discharge. Monitor BP throughout therapy sessions. 2. Neuro- s/p ICH, aphasic, no evidence siezures, monitor for progression -c/u ASa and statin for secondary stroke prevention tight lipid control 3. Cardiac- recurrent Afib, c/u ASA and beta-dianne, on SATURN trial, VR 70s, US pending -HTN , improved to 120s, orthostatic.. BMP doing well. May need further medication adjustments to maintain target levels. -HLD- c/u CRESTOR 4. Endo- hx of DM c/u insulin and ISS good control FBS 5. - checked UA stable 6. GI ppx- protonix, 7. MSK-LB pain less impact on mobility training and rehab process. Include LB spine stabilization rx as part of protocol. 8. Skin-emollients and creams available, patient defers, no open areas or weeping despite large areas of involvement. May warrant further PETERSEN as outpatient for possible psoriatic arthritis component to LS issues. PROJECTED DISCHARGE DESTINATION: Home with roommate and reportedly daughter and brother for day time support and any durable medical equipment required to increase functional safety and mobility. PROGNOSIS: Good ESTIMATED LENGTH OF STAY: 5-7 days. TIME SPENT COUNSELING AND COORDINATING INITIAL CARE: 30 minutes. This document is generated using speech recognition software which may result in grammatical, typographical and individual word errors. Allergies Coded Allergies: Penicillins (Verified Allergy, Unknown, 07/25/20) codeine (Verified Allergy, Unknown, 07/25/20) hydrocodone (Verified Allergy, Unknown, 07/25/20) Vital Signs Vital Signs Date Time Temp Pulse Resp B/P (MAP) Pulse Ox O2 Delivery O2 Flow Rate FiO2 08/04/20 07:40 143/80 08/04/20 07:39 71 08/04/20 06:00 98.4 16 97 Room Air Laboratory Data Labs 24H Laboratory Tests 2 08/03/20 11:52: Bedside Glucose (Misc Panel) 77 08/03/20 17:14: Bedside Glucose (Misc Panel) 117H 08/03/20 19:48: Bedside Glucose (Misc Panel) 128H 08/04/20 06:35: Bedside Glucose (Misc Panel) 122H Current Medications Current Medications Current Medications Medications (Trade) Dose Ordered Sig/Amelia Route PRN Reason Start Time Stop Time Status Last Admin Dose Admin Acetaminophen (Tylenol Tab) 650 mg Q4H PRN PO PAIN / FEVER 07/25/20 14:45 UNV Acetaminophen (Tylenol Tab) 650 mg Q4HP PRN PO MILD PAIN (PS 1-4) 07/25/20 12:00 07/29/20 11:55 Albuterol Sulfate (Proventil, Ventolin Hfa) 2 puff Q4H PRN INH SOB/WHEEZING 07/25/20 14:45 Amlodipine Besylate (Norvasc) 5 mg QHS PO 07/30/20 21:00 08/01/20 17:15 DC 07/31/20 21:00 Amlodipine Besylate (Norvasc) 10 mg DAILY PO 07/26/20 09:00 08/01/20 17:15 DC 08/01/20 08:31 Aspirin (Aspirin Chewable) 81 mg DAILY PO 07/26/20 09:00 08/04/20 07:39 Atenolol (Tenormin) 100 mg DAILY PO 07/26/20 09:00 08/01/20 17:15 DC 08/01/20 08:32 Bisacodyl (Dulcolax Suppository) 10 mg Q3DP PRN [place] CONSTIPATION 07/25/20 14:45 Budesonide/ Formoterol Fumarate (Symbicort 160/ 4.5mcg) 2 puff RBID INH 07/25/20 20:00 08/04/20 07:27 Dextrose (Dextrose 50%) 25 ml ASDIRECTED PRN IV SEE LABEL COMMENTS 07/25/20 15:00 Docusate Sodium (Colace) 100 mg BID PO 07/25/20 21:00 08/01/20 08:30 Enoxaparin Sodium (Lovenox) 40 mg DAILY SC 07/26/20 09:00 08/04/20 07:41 Fish Oil ([place]-3 (1000mg)) 1 cap DAILY PO 07/26/20 09:00 08/04/20 07:39 Fludrocortisone Acetate (Florinef) 0.1 mg BID PO 07/25/20 21:00 07/25/20 14:50 DC Fludrocortisone Acetate (Florinef) 0.1 mg BID PO 07/25/20 21:00 07/28/20 08:56 DC 07/28/20 08:13 Fludrocortisone Acetate (Florinef) 0.1 mg DAILY PO 07/28/20 09:00 07/30/20 14:14 DC 07/30/20 07:42 Glucagon (Glucagon) 1 mg ASDIRECTED PRN SC SEE LABEL COMMENTS 07/25/20 15:00 Glucose (Glucose) 16 GM ASDIRECTED PRN PO SEE LABEL COMMENTS 07/25/20 15:00 Home Med (Med Rec Complete!) ASDIRECTED XX 07/25/20 14:30 07/25/20 14:52 DC Hydrocortisone (Proctosol Hc) TO RECTAL AREA DAILY TOP 07/26/20 09:00 07/28/20 09:03 DC 07/26/20 09:04 Hydrocortisone (Proctosol Hc) apply to plaques o... DAILY TOP 07/28/20 09:00 08/02/20 09:04 Insulin Human Lispro (HumaLOG INSULIN) SEE PROTOCOL TABLE AC SC 07/25/20 17:30 08/04/20 07:41 Insulin Human Lispro (HumaLOG INSULIN) SEE PROTOCOL TABLE QHS SC 07/25/20 21:00 07/26/20 21:48 Lisinopril (Prinivil) 20 mg DAILY PO 07/26/20 09:00 08/04/20 07:40 Metoprolol Tartrate (Lopressor) 25 mg BID PO 08/02/20 09:00 08/03/20 16:49 DC 08/03/20 09:20 Metoprolol Tartrate (Lopressor) 25 mg TID PO 08/03/20 16:00 08/04/20 07:39 Omeprazole (PriLOSEC) 40 mg DAILY PO 07/26/20 09:00 08/04/20 07:40 Ondansetron HCl (Zofran) 4 mg Q8H PRN PO NAUSEA OR VOMITING 07/25/20 14:45 Phenyleph/Shark Oil/Min Oil/Petrol (Preparation H Ointment) QIDP PRN [place] ITCHING 07/25/20 14:15 07/28/20 09:05 DC Phenyleph/Shark Oil/Min Oil/Petrol (Preparation H Ointment) APPLY TO RECTAL AREA QIDP PRN [place] ITCHING 07/28/20 09:15 Polyethylene Glycol (Miralax) 1 pkt DAILY PO 07/26/20 09:00 08/01/20 08:30 Potassium Chloride (Micro-K Extencaps) 40 meq BID PO 07/25/20 21:00 07/25/20 15:07 DC Potassium Chloride (Micro-K Extencaps) 40 meq DAILY PO 07/26/20 09:00 08/04/20 07:40 Sodium Chloride (Sodium Chloride) 3 gm Q8H PO 07/25/20 22:00 07/28/20 08:56 DC 07/28/20 06:17 Tamsulosin HCl (Flomax) 0.4 mg DAILY PO 07/26/20 09:00 08/04/20 07:40 Ursodiol (Actigall) 300 mg TID PO 07/25/20 21:00 08/04/20 07:40 LYNDSEY AVENDANO MD Aug 04, 2020 09:43
[2020-08-04 14:00] VITALS: BP 142/83
--- NOTE | 2020-08-04 15:02 | IPNPDOC ---
Text Note Date of Service The patient was seen on 08/04/20. NOTE 55M with PMHx HTN, DM, recent PE/Eliquis and recent hemorrhagic CVA - left temporoparietal lobe, treated at [facility]. He originally had some focal neurologic deficits including aphasia and visual loss. His deficits have been improving as per patient. Currently he denies any new medical complaints. He denies chest pain, SOB, VAIL, N/V/D, changes in vision, abdominal pain, parasthesias or weakness. PHYSICAL EXAMINATION: VITAL SIGNS: Please see below. GENERAL: NAD, sitting comfortably in chair HEENT: NC/AT, EOMI, PERRL Lungs: CTA B/L Heart: +S1S2, RRR Abd: soft, NT, +BS, obese Ext: no edema, sensation intact Psych: AAOx3 LABORATORY DATA: Please see below. ASSESSMENT/PLAN: This is a 55-year-old male with history of hypertension , diabetes, and recent PE on Eliquis with sudden onset of headache, confusion and right-sided visual field cut. CT head showed L IPH and IV Extension, and was given Kcentra and TXA for reversal of Eliquis. He was then Air-transferred to [facility] . ECHO was done on which showed EF 55%, MRI brain was done as well and showed 07.20.2020 Acute/subacute L Temporoparietal lo be with stable surrounding edema and mass effect. CTA no change in hemorrhage nor evidence aneurysm or AVM. Currently he is on only ASA and on no AC for his recently diagnosed PE and afib which is rate controlled with Metoprolol. He is currently getting therapu in ARU 1: ICH. CT head showed L IPH and IV Extension, and was given Kcentra and TXA for reversal of Eliquis. Repeat CTA showed no change in hemorrhage nor evidence aneurysm or AVM, currently on statin therapy - enrolled in SATURN trial. continue with rehab as per primary team 2: Afib: CHADVASC 3 : rate controlled with metoprolol. He is not on any anti- cognition because of his recent intracranial hemorrhage and he is very high risk for any anticoagulation. He will need to be followed with neurosurgery as an outpatient and once they clear him only, then he can be put on full dose anticoagulation He also has been recently diagnosed with pulmonary embolism for which she was on Eliquis, but because of his intracranial hemorrhages Eliquis has been discont inued. He is only on aspirin at this time. No obvious cause of pulmonary embolism was found. But as the patient is not on any anticoagulation, and most of the pulmonary embolism arises from the lower extremities. It might be a good idea to start the discussion about IVC filter as a prophylactic measure. 3. HTN: lisinopril, amlodipine, metoprolol. Continue to monitor 4. DM. On sliding scale insulin right now. Consistent carb diet. A1c of 6.5. 5. BPH: Continue Flomax DVT prophylaxis: Lovenox. Disposition as per primary VS,Fishbone, I+O VS, Fishbone, I+O Vital Signs Date Time Temp Pulse Resp B/P (MAP) Pulse Ox O2 Delivery O2 Flow Rate FiO2 08/04/20 07:40 143/80 08/04/20 07:39 71 08/04/20 06:00 98.4 16 97 Room Air I&O- Last 24 Hours up to 6 AM 08/04/20 06:00 Intake Total 1680 ml Output Total 0 ml Balance 1680 ml ALLEGRA DAWKINS MD Aug 04, 2020 14:32
[2020-08-04 20:30] VITALS: BP 162/82
[2020-08-05] VITALS (11 sets, daily range): BP systolic 132–190; BP diastolic 68–110
[2020-08-05] MEDS: lisinopriL 20 MG TAB PO SCH (05:50)
[2020-08-05] MEDS: METOPROLOL TART 25 MG TABLET PO SCH ×3 (05:51→20:43)
[2020-08-05] MEDS: SYMBICORT 160/4.5MCG INHALER 6GM INH SCH ×2 (07:24→20:08)
[2020-08-05] MEDS: HumaLOG INSULIN (NovoLOG) PER UNIT SC SCH ×4 (07:58→20:43)
[2020-08-05] MEDS: ENOXAPARIN 40MG/0.4ML SYRINGE (J1650 PER 10MG) SC SCH (07:59)
[2020-08-05] MEDS: DOCUSATE SODIUM 100 MG CAP PO SCH ×2 (08:01→20:42)
[2020-08-05] MEDS: MIRALAX *UNIT DOSE* 17GM PACKET PO SCH (08:01)
[2020-08-05] MEDS: OMEPRAZOLE 20 MG CAP PO SCH (08:02)
[2020-08-05] MEDS: ASPIRIN 81 MG CHEW TABLET PO SCH (08:02)
[2020-08-05] MEDS: ursodioL 300 MG CAP PO SCH ×3 (08:02→20:42)
[2020-08-05] MEDS: POTASSIUM CHLORIDE 10 MEQ SR TABLET PO SCH (08:02)
[2020-08-05] MEDS: ANUSOL HC CREAM 30GM TOP SCH (08:03)
[2020-08-05] MEDS: TAMSULOSIN 0.4 MG CAP PO SCH (08:03)
[2020-08-05] MEDS: OMEGA-3 1000MG CAPSULE PO SCH (08:03)
--- NOTE | 2020-08-05 08:06 | REP ---
INDICATION: Hx PE cannot anticoagulate COMPARISON: None. TECHNIQUE: Cota scale and color Doppler evaluation of the bilateral lower extremities using linear high frequency transducer. FINDINGS: Ultrasound examination of the right and left lower extremity deep venous structures from the common femoral vein to the popliteal vein demonstrates normal compressibility flow and wave patterns in response to respiration and augmentation. There is no evidence for deep venous thrombosis. IMPRESSION: No evidence for deep venous thrombosis. <Electronically signed by Drake Richard > 08/05/20 0802
--- NOTE | 2020-08-05 08:56 | IPNPDOC ---
PM&R Progress Note DATE OF SERVICE: Aug 05, 2020 Pricer Progress Note DATE OF ADMISSION: Jul 25, 2020 at 13:32 INPATIENT REHABILITATION ADMISSION DAY: #11 CHIEF COMPLAINT: Aphasia. Resolving Right Visual Field Cut. Low back pain with bilateral lower extremity discomfort. 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 He was seen at [facility], CT head showed L IPH and IV Extension, given Kcentra and TXA for reversal of Eliquis. He was then Air-transferred to [facility] 07.18.2020. on presentation he had receptive aphasia, had R Upper visual field cut, workup noted for abnormal spot EEG/07.23.20, no clear epileptiform abnormality. ECHO 07.22.20 EF 55%, MRI brain 07.20.2020 Acute/subacute L Temporoparietal lobe with stable surrounding edema and mass effect. CTA no change in hemorrhage nor evidence aneurysm or AVM. He was changed to ASA for a fib. Atenolol titrated up to 100/day for intermittent tachy cardia. Hyponatremia treated with Na 3G TID and started on Florinef BID now with normalized electrolytes have weaned off Na tabs and Flourinef. Sodium 141, K+ 3.9. He is enrolled in the SATURN trial. He is sleeping well, h LBP and bilateral LE discomfort improved and BP escalations in the 160s improved with medication shifts. Reverted to active AFib 08.11.2020, VR 100, Appreciate hospitalist input. Judgement and insight remain lacking. Radiographic series noted for DDD, L5/S1 listhesis and disc space narrowing, L4/5 mild disc space narrowing, probable HNP and polyradiculopathy further complicating functional capabilities, improving with increased ambulation and decreased prolonged sitting activities. Mild balance issues, did well with room privileges, still safety issues with bathing to be addressed. Discussed case with hospitalist yesterday who suggested consideration of IVC filter since we have limited options for anticoagulation in face of recent ICH and history of prior PE, concern for DVT as contributing factor. IR suggested US to R/O DVT previously and continued efforts to medically optimize afib. US results just in, negative for DVT. no filter to be placed. Significant elevation BP S 190 this morning. Earlier, PT noted significant orthostatic changes. REVIEW OF SYSTEMS: The following is a completed review of systems and has been reviewed. Review of systems otherwise unremarkable. PAIN: Patient self reports no pain. EYES: No recent vision changes. EARS, NOSE, & THROAT: No throat pain, or dysphagia, or rhinorrhea. CARDIOVASCULAR: Denies chest pain or palpitations. PULMONARY: Denies shortness of breath. GASTROINTESTINAL: Denies constipation/diarrhea, notes, this morning. GENITOURINARY: Continent. No complaints. MUSCULOSKELETAL: bilateral hip girdle discomfort and complaint of low back pain NEUROLOGICAL:.aphasia, mild left lower extremity weakness HEMATOLOGICAL: no specific complaints SKIN: .widespread psoriasis plaques over trunk, lower abdomen PSYCHIATRIC: Unremarkable. All other review of systems found to be negative. MEDICATIONS: Please see below. PHYSICAL EXAMINATION: VITAL SIGNS: Please see below. Positive 15 point drop sit to stand 135 to 120 last week and episodically, sbp still 170s today after BP meds. GENERAL: Pleasant and cooperative. Some distress, says just feels "off" today. Occasional word finding difficulties noted. Discussed importance of BP control, future stroke prevention, dietary adjustments, need to monitor for orthostatic changes, risk of falls with medication changes, etc. Agrees to work towards new AHA guidelines 120/70, maintain low salt low fat diet, reduce caffeine. HEENT: Extraocular movements intact. CARDIOVASCULAR: Regular S1 S2 with radial pulse about 80 LUNGS: Clear to auscultation bilaterally. No wheezes. No rhonchi. ABDOMEN: Soft, nontender, obese. Positive bowel sounds. Normal active bowel sounds, no organomegaly. SKIN: Multiple large maculopapular red lesions posterolateral trunk, abdomen, dry, flaky Extremities: no point tenderness no swelling LABORATORY DATA: Please see below. FUNCTIONAL STATUS: Premorbid: Independent with all activities of daily life as well as mobility. Mild word finding difficulties, MOD I for [id number], bed to chair and ambulation. Requires cues for motor planning and sequencing and some memory issues, for example safety issues in showering activities. Ambulating significant distances at Mod I without assistive device, slight balance issues. LICENSED CLINICAL PSYCHOLOGIST interventions continue, has word finding, judgement and other communication challenges. GOALS: Regain baseline level of modified independence, CV stability ASSESSMENT: Left temporal parietal ICH HTN DM History PE on Eliquis aphasia Hyponatremia/HypoKalemia, normalized AFib. Psoriasis Low back pain with L5/S1 Spondylolisthesis, DDD and probable radiculopathy Orthostatic hypotension This is a 55-year-old gentleman with history of hypertension, diabetes, with sudden onset of headache, confusion and right-sided visual field cuts found to have left temporal parietal IPH with extension into the ventricular system at local hospital, transferred to [facility] 07.18.2020, worked up, stabilized and transferred to [facility] for Comprehensive rehabilitation services 07.25.2020 doing well and making rapid progress in his recovery. BP control improving but remains labile and a recurrence risk, orthostatic changes and intermittent resumption of active Afib with somewhat rapid response at times noted at rest. Discussed with Hospitalist and agree with suggested med changes to Atenolol/Lisinpril. Will continue to observe for BP fluctuations in relationship to increased levels of physical activities. PLAN: 1. Rehab- PT/OT advance gait and ADls, strengthen/stretch/maintain ROM all 4 limbs, LBP, gait, stability, higher order cognitive functions -LICENSED CLINICAL PSYCHOLOGIST for communication, swallowing assessments and assist with optimal behavioral strategies to facilitate progress and achievement of greatest potential functional capability. LS spine stabilization exercises recommended, will need further followup post discharge. Monitor BP throughout therapy session s. 2. Neuro- s/p ICH, aphasic, no evidence siezures, monitor for progression -c/u ASa and statin for secondary stroke prevention tight lipid control 3. Cardiac- recurrent Afib now seems to have reconverted to sinus rhythm, c/u ASA and beta-dianne, on SATURN trial, VR 70s, US pending -HTN , improved to 120s, orthostatic.. BMP doing well. May need further medication adjustments to maintain target levels. -HLD- c/u CRESTOR 4. Endo- hx of DM c/u insulin and ISS good control FBS 5. - checked UA stable 6. GI ppx- protonix, 7. MSK-LB pain less impact on mobility training and rehab process. Include LB spine stabilization rx as part of protocol. 8. Skin-emollients and creams available, patient defers, no open areas or weeping despite large areas of involvement. May warrant further PETERSEN as outpatient for possible psoriatic arthritis component to LS issues. PROJECTED DISCHARGE DESTINATION: Home with roommate and reportedly daughter and brother for day time support and any durable medical equipment required to i ncrease functional safety and mobility. PROGNOSIS: Good ESTIMATED LENGTH OF STAY: 5-7 days. TIME SPENT COUNSELING AND COORDINATING INITIAL CARE: 30 minutes. This document is generated using speech recognition software which may result in grammatical, typographical and individual word errors. Allergies Coded Allergies: Penicillins (Verified Allergy, Unknown, 07/25/20) codeine (Verified Allergy, Unknown, 07/25/20) hydrocodone (Verified Allergy, Unknown, 07/25/20) Vital Signs Vital Signs Date Time Temp Pulse Resp B/P (MAP) Pulse Ox O2 Delivery O2 Flow Rate FiO2 08/05/20 06:59 162/94 (116) 08/05/20 05:52 70 68 76 08/05/20 05:40 97.4 18 96 Room Air Laboratory Data Labs 24H Laboratory Tests 2 08/04/20 11:37: Bedside Glucose (Misc Panel) 102 08/04/20 16:42: Bedside Glucose (Misc Panel) 112H 08/04/20 20:19: Bedside Glucose (Misc Panel) 149H 08/05/20 06:08: Bedside Glucose (Misc Panel) 113H Current Medications Current Medications Current Medications Medications (Trade) Dose Ordered Sig/Amelia Route PRN Reason Start Time Stop Time Status Last Admin Dose Admin Acetaminophen (Tylenol Tab) 650 mg Q4H PRN PO PAIN / FEVER 07/25/20 14:45 UNV Acetaminophen (Tylenol Tab) 650 mg Q4HP PRN PO MILD PAIN (PS 1-4) 07/25/20 12:00 07/29/20 11:55 Albuterol Sulfate (Proventil, Ventolin Hfa) 2 puff Q4H PRN INH SOB/WHEEZING 07/25/20 14:45 Amlodipine Besylate (Norvasc) 5 mg QHS PO 07/30/20 21:00 08/01/20 17:15 DC 07/31/20 21:00 Amlodipine Besylate (Norvasc) 10 mg DAILY PO 07/26/20 09:00 08/01/20 17:15 DC 08/01/20 08:31 Aspirin (Aspirin Chewable) 81 mg DAILY PO 07/26/20 09:00 08/05/20 08:02 Atenolol (Tenormin) 100 mg DAILY PO 07/26/20 09:00 08/01/20 17:15 DC 08/01/20 08:32 Bisacodyl (Dulcolax Suppository) 10 mg Q3DP PRN DE CONSTIPATION 07/25/20 14:45 Budesonide/ Formoterol Fumarate (Symbicort 160/ 4.5mcg) 2 puff RBID INH 07/25/20 20:00 08/05/20 07:24 Dextrose (Dextrose 50%) 25 ml ASDIRECTED PRN IV SEE LABEL COMMENTS 07/25/20 15:00 Docusate Sodium (Colace) 100 mg BID PO 07/25/20 21:00 08/01/20 08:30 Enoxaparin Sodium (Lovenox) 40 mg DAILY SC 07/26/20 09:00 08/05/20 07:59 Fish Oil (Sharon-3 (1000mg)) 1 cap DAILY PO 07/26/20 09:00 08/05/20 08:03 Fludrocortisone Acetate (Florinef) 0.1 mg BID PO 07/25/20 21:00 07/25/20 14:50 DC Fludrocortisone Acetate (Florinef) 0.1 mg BID PO 07/25/20 21:00 07/28/20 08:56 DC 07/28/20 08:13 Fludrocortisone Acetate (Florinef) 0.1 mg DAILY PO 07/28/20 09:00 07/30/20 14:14 DC 07/30/20 07:42 Glucagon (Glucagon) 1 mg ASDIRECTED PRN SC SEE LABEL COMMENTS 07/25/20 15:00 Glucose (Glucose) 16 GM ASDIRECTED PRN PO SEE LABEL COMMENTS 07/25/20 15:00 Home Med (Med Rec Complete!) ASDIRECTED XX 07/25/20 14:30 07/25/20 14:52 DC Hydrocortisone (Proctosol Hc) TO RECTAL AREA DAILY TOP 07/26/20 09:00 07/28/20 09:03 DC 07/26/20 09:04 Hydrocortisone (Proctosol Hc) apply to plaques o... DAILY TOP 07/28/20 09:00 08/02/20 09:04 Insulin Human Lispro (HumaLOG INSULIN) SEE PROTOCOL TABLE AC SC 07/25/20 17:30 08/05/20 07:58 Insulin Human Lispro (HumaLOG INSULIN) SEE PROTOCOL TABLE QHS SC 07/25/20 21:00 07/26/20 21:48 Lisinopril (Prinivil) 20 mg DAILY PO 07/26/20 09:00 08/05/20 05:50 Metoprolol Tartrate (Lopressor) 25 mg BID PO 08/02/20 09:00 08/03/20 16:49 DC 08/03/20 09:20 Metoprolol Tartrate (Lopressor) 25 mg TID PO 08/03/20 16:00 08/05/20 05:51 Omeprazole (PriLOSEC) 40 mg DAILY PO 07/26/20 09:00 08/05/20 08:02 Ondansetron HCl (Zofran) 4 mg Q8H PRN PO NAUSEA OR VOMITING 07/25/20 14:45 Phenyleph/Shark Oil/Min Oil/Petrol (Preparation H Ointment) QIDP PRN DE ITCHING 07/25/20 14:15 07/28/20 09:05 DC Phenyleph/Shark Oil/Min Oil/Petrol (Preparation H Ointment) APPLY TO RECTAL AREA QIDP PRN DE ITCHING 07/28/20 09:15 Polyethylene Glycol (Miralax) 1 pkt DAILY PO 07/26/20 09:00 08/01/20 08:30 Potassium Chloride (Micro-K Extencaps) 40 meq BID PO 07/25/20 21:00 07/25/20 15:07 DC Potassium Chloride (Micro-K Extencaps) 40 meq DAILY PO 07/26/20 09:00 08/05/20 08:02 Sodium Chloride (Sodium Chloride) 3 gm Q8H PO 07/25/20 22:00 07/28/20 08:56 DC 07/28/20 06:17 Tamsulosin HCl (Flomax) 0.4 mg DAILY PO 07/26/20 09:00 08/05/20 08:03 Ursodiol (Actigall) 300 mg TID PO 07/25/20 21:00 08/05/20 08:02 LYNDSEY AVENDANO MD Aug 05, 2020 08:56
--- NOTE | 2020-08-05 15:45 | IPNPDOC ---
Text Note Date of Service The patient was seen on 08/05/20. NOTE 5M with PMHx HTN, DM, recent PE/Eliquis and recent hemorrhagic CVA - left temporoparietal lobe, treated at [facility]. He originally had some focal neurologic deficits including aphasia and visual loss. His deficits have been improving as per patient. Currently he denies any new medical complaints. PHYSICAL EXAMINATION: VITAL SIGNS: Please see below. GENERAL: NAD, sitting comfortably in chair HEENT: NC/AT, EOMI, PERRL Lungs: CTA B/L Heart: +S1S2, RRR Abd: soft, NT, +BS, obese Ext: no edema, sensation intact Psych: AAOx3 LABORATORY DATA: Please see below. ASSESSMENT/PLAN: This is a 55-year-old male with history of hypertension , diabetes, and recent PE on Eliquis with sudden onset of headache, confusion and right-sided visual field cut. CT head showed L IPH and IV Extension, and was given Kcentra and TXA for reversal of Eliquis. He was then Air-transferred to [facility] . ECHO was done on which showed EF 55%, MRI brain was done as well and showed 07.20.2020 Acute/subacute L Temporoparietal lobe with stable surrounding edema and mass effect. CTA no change in hemorrhage nor evidence aneurysm or AVM. Currently he is on only ASA and on no AC for his recently diagnosed PE and afib which is rate controlled with Metoprolol. He is currently getting therapu in ARU 1: ICH. CT head showed L IPH and IV Extension, and was given Kcentra and TXA for reversal of Eliquis. Repeat CTA showed no change in hemorrhage nor evidence aneurysm or AVM, currently on statin therapy - enrolled in SATURN trial. continue with rehab as per primary team 2: Afib: CHADVASC 3 : rate controlled with metoprolol. He is not on any anti- cognition because of his recent intracranial hemorrhage and he is very high risk for any anticoagulation. He will need to be followed with neurosurgery as an outpatient and once they clear him only, then he can be put on full dose anticoagulation He also has been recently diagnosed with pulmonary embolism for which she was on Eliquis, but because of his intracranial hemorrhages Eliquis has been discontinued. He is only on aspirin at this time. No obvious cause of pulmonary embolism was found. But as the patient is not on any anticoagulation, and most of the pulmonary embolism arises from the lower extremities. It might be a good idea to start the discussion about IVC filter as a prophylactic measure. 3. HTN: lisinopril, amlodipine, metoprolol. Continue to monitor 4. DM. On sliding scale insulin right now. Consistent carb diet. A1c of 6.5. 5. BPH: Continue Flomax DVT prophylaxis: Lovenox. Disposition as per primary VS,Fishbone, I+O VS, Fishbone, I+O Vital Signs Date Time Temp Pulse Resp B/P (MAP) Pulse Ox O2 Delivery O2 Flow Rate FiO2 08/05/20 14:00 98.1 78 18 152/77 (102) 96 Room Air I&O- Last 24 Hours up to 6 AM 08/05/20 06:00 Intake Total 1000 ml Balance 1000 ml ALLEGRA DAWKINS MD Aug 05, 2020 15:45
[2020-08-06 00:03] VITALS: BP 163/81
[2020-08-06 05:50] VITALS: BP_SYST 191; BP_SYST 195; BP_SYST 196; BP_DIAS 101; BP_DIAS 107; BP_DIAS 99
[2020-08-06 06:00] VITALS: BP 195/101
[2020-08-06] MEDS: lisinopriL 20 MG TAB PO SCH (06:07)
[2020-08-06 07:00] VITALS: BP 150/96
[2020-08-06 07:06] LABS: HEMATOCRIT 44.7 % (42.0-52.0); HEMOGLOBIN 14.7 g/dl (13.5-17.5); MEAN CORPUSCULAR HEMOGLOBIN 28.1 pg (27.0-33.0); MEAN CORPUSCULAR HGB CONC 32.9 g/dl (32.0-36.5); MEAN CORPUSCULAR VOLUME 85.5 fl (80.0-96.0); PLATELET COUNT, AUTOMATED 356 10^3/uL (150-450); RED BLOOD COUNT 5.23 10^6/uL (4.30-6.10); WHITE BLOOD COUNT 5.6 10^3/uL (4.0-10.0)
[2020-08-06] MEDS: OMEPRAZOLE 20 MG CAP PO SCH (07:42)
[2020-08-06] MEDS: OMEGA-3 1000MG CAPSULE PO SCH (07:42)
[2020-08-06] MEDS: HumaLOG INSULIN (NovoLOG) PER UNIT SC SCH ×4 (07:42→21:00)
[2020-08-06] MEDS: ursodioL 300 MG CAP PO SCH ×3 (07:42→21:06)
[2020-08-06] MEDS: TAMSULOSIN 0.4 MG CAP PO SCH (07:43)
[2020-08-06] MEDS: METOPROLOL TART 25 MG TABLET PO SCH (07:43)
[2020-08-06] MEDS: POTASSIUM CHLORIDE 10 MEQ SR TABLET PO SCH (07:44)
[2020-08-06] MEDS: ASPIRIN 81 MG CHEW TABLET PO SCH (07:44)
[2020-08-06] MEDS: SYMBICORT 160/4.5MCG INHALER 6GM INH SCH ×2 (07:46→20:22)
--- NOTE | 2020-08-06 08:08 | IPNPDOC ---
PM&R Progress Note DATE OF SERVICE: Aug 06, 2020 Director Of Public Relations Progress Note DATE OF ADMISSION: Jul 25, 2020 at 13:32 INPATIENT REHABILITATION ADMISSION DAY: #12 CHIEF COMPLAINT: Aphasia. Resolving Right Visual Field Cut. Low back pain with bilateral lower extremity discomfort. 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 He was seen at [facility] [place], [place] head showed L IPH and IV Extension, given Kcentra and TXA for reversal of Eliquis. He was then Air-transferred to [facility] 07.18.2020. on presentation he had receptive aphasia, had R Upper visual field cut, workup noted for abnormal spot EEG/07.23.20, no clear epileptiform abnormality. ECHO 07.22.20 EF 55%, MRI brain 07.20.2020 Acute/subacute L Temporoparietal lobe with stable surrounding edema and mass effect. CTA no change in hemorrhage nor evidence aneurysm or AVM. He was changed to ASA for a fib. Atenolol titrated up to 100/day for intermittent tachy cardia. Hyponatremia treated with Na 3G TID and started on Florinef BID now with normalized electrolytes have weaned off Na tabs and Flourinef. He is enrolled in the SATURN trial. He is sleeping well, LBP and bilateral LE discomfort improved however BP escalations in the 160s-190's delayed anticipated discharge, continue with with medication shifts. Reverted to active AFib 08.11.2020, VR 100, this week has been back in sinus rhythm. Judgement and insight remain lacking, however improving. Radiographic series noted for DDD, L5/S1 listhesis and disc space narrowing, L4/5 mild disc space narrowing, probable HNP and polyradiculopathy further complicating functional capabilities, improving with increased ambulation and decreased prolonged sitt ing activities. Mild balance issues, did well with room privileges, still safety issues with bathing being addressed. Discussions with IVR/Hospitalist team led to decision to hold off on IVC with neg evidence DVT LE on US. Patient pharmacy confirmed prior meds losartan (had just changed to 100 from 50 from prev Lisinopril), amlodipine 10, atenolol 50 this morning. Previously, PT noted significant orthostatic changes, less severe yesterday, will continue to monitor. No new complaints this morning slept better. REVIEW OF SYSTEMS: The following is a completed review of systems and has been reviewed. Review of systems otherwise unremarkable. PAIN: Patient self reports no pain. EYES: No recent vision changes. EARS, NOSE, & THROAT: No throat pain, or dysphagia, or rhinorrhea. CARDIOVASCULAR: Denies chest pain or palpitations. PULMONARY: Denies shortness of breath. GASTROINTESTINAL: Denies constipation/diarrhea, notes, this morning. GENITOURINARY: Continent. No complaints. MUSCULOSKELETAL: bilateral hip girdle discomfort and complaint of low back pain, improved NEUROLOGICAL:.aphasia, mild left lower extremity weakness HEMATOLOGICAL: no specific complaints SKIN: .widespread psoriasis plaques over trunk, lower abdomen PSYCHIATRIC: Unremarkable. All other review of systems found to be negative. MEDICATIONS: Please see below. PHYSICAL EXAMINATION: VITAL SIGNS: Please see below. GENERAL: Pleasant and cooperative. Demonstrated good restraint and intention to maintain low salt low fat diet, reduce caffeine,avoided much of breakfast tray- pancakes, toast, eggs, rivera. Clearer cognitively today HEENT: Extraocular movements intact. CARDIOVASCULAR: Regular S1 S2 with radial pulse about 80 LUNGS: Clear to auscultation bilaterally. No wheezes. No rhonchi. ABDOMEN: Soft, nontender, obese. Positive bowel sounds. Normal active bowel sounds, no organomegaly. SKIN: Multiple large maculopapular red lesions posterolateral trunk, abdomen, dry, flaky Extremities: no point tenderness no swelling negative Phuong's LABORATORY DATA: Please see below. FUNCTIONAL STATUS: Premorbid: Independent with all activities of daily life as well as mobility. Mild word finding difficulties, MOD I for [id number], bed to chair and ambulation. Requires cues for motor planning and sequencing and some memory issues, for example safety issues in showering activities. Ambulating significant distances at Mod I without assistive device, slight balance issues. DRUG COORDINATOR interventions continue, has word finding, judgement and other communication challenges. GOALS: Regain baseline level of modified independence, CV stability ASSESSMENT: Left temporal parietal ICH HTN Orthostatic hypotension DM History PE on Eliquis aphasia Hyponatremia/HypoKalemia, normalized AFib. Psoriasis Low back pain with L5/S1 Spondylolisthesis, DDD and probable radiculopathy This is a 55-year-old gentleman with history of hypertension, diabetes, with sudden onset of headache, confusion and right-sided visual field cuts found to have left temporal parietal IPH with extension into the ventricular system at local hospital, transferred to [facility] 07.18.2020, worked up, stabilized and transferred to [facility] for Comprehensive rehabilitation services 07.25.2020 doing well and making rapid progress in his recovery. BP control improving but remains labile and a recurrence risk, orth ostatic changes and intermittent resumption of active Afib with somewhat rapid response at times noted at rest. Discussed with Hospitalist and continue med changes to Atenolol/Losartan/Amlodipine. Will continue to observe for BP fluctuations in relationship to increased levels of physical activities. PLAN: 1. Rehab- PT/OT advance gait and ADls, strengthen/stretch/maintain ROM all 4 limbs, LBP, gait, stability, higher order cognitive functions -DRUG COORDINATOR for communication, swallowing assessments and assist with optimal behavioral strategies to facilitate progress and achievement of greatest potenti al functional capability. LS spine stabilization exercises recommended, will need further followup post discharge. Monitor BP throughout therapy sessions. 2. Neuro- s/p ICH, aphasic, no evidence siezures, monitor for progression -c/u ASa and statin for secondary stroke prevention tight lipid control 3. Cardiac- recurrent Afib now seems to have reconverted to sinus rhythm, c/u ASA and beta-dianne, on SATURN trial, VR 70s, US pending -HTN , improved to 120s, orthostatic.. BMP doing well. Further medication adjustments to simulate home meds and hopefully maintain optimal control -HLD- c/u CRESTOR 4. Endo- hx of DM c/u insulin and ISS good control FBS 5. - checked UA stable 6. GI ppx- protonix, 7. MSK-LB pain less impact on mobility training and rehab process. Include LB spine stabilization rx as part of protocol. 8. Skin-emollients and creams available, patient defers, no open areas or weeping despite large areas of involvement. May warrant further PETERSEN as outpatient for possible psoriatic arthritis component to LS issues. PROJECTED DISCHARGE DESTINATION: Home with roommate and reportedly daughter and brother for day time support and any durable medical equipment required to increase functional safety and mobility. PROGNOSIS: Good ESTIMATED LENGTH OF STAY: 5-7 days. TIME SPENT COUNSELING AND COORDINATING INITIAL CARE: 30 minutes. This document is generated using speech recognition software which may result in grammatical, typographical and individual word errors. Allergies Coded Allergies: Penicillins (Verified Allergy, Unknown, 07/25/20) codeine (Verified Allergy, Unknown, 07/25/20) hydrocodone (Verified Allergy, Unknown, 07/25/20) Vital Signs Vital Signs Date Time Temp Pulse Resp B/P (MAP) Pulse Ox O2 Delivery O2 Flow Rate FiO2 08/06/20 07:43 69 150/96 08/06/20 06:00 97.6 18 95 Room Air Laboratory Data CBC/BMP Laboratory Tests 08/06/20 06:49 Labs 24H Laboratory Tests 2 08/05/20 11:22: Bedside Glucose (Misc Panel) 157H 08/05/20 16:16: Bedside Glucose (Misc Panel) 101 08/05/20 20:39: Bedside Glucose (Misc Panel) 151H 08/06/20 06:37: Bedside Glucose (Misc Panel) 115H 08/06/20 06:49: Nucleated Red Blood Cells % (auto) 0.0 Current Medications Current Medications Current Medications Medications (Trade) Dose Ordered Sig/Amelia Route PRN Reason Start Time Stop Time Status Last Admin Dose Admin Acetaminophen (Tylenol Tab) 650 mg Q4H PRN PO PAIN / FEVER 07/25/20 14:45 UNV Acetaminophen (Tylenol Tab) 650 mg Q4HP PRN PO MILD PAIN (PS 1-4) 07/25/20 12:00 07/29/20 11:55 Albuterol Sulfate (Proventil, Ventolin Hfa) 2 puff Q4H PRN INH SOB/WHEEZING 07/25/20 14:45 Amlodipine Besylate (Norvasc) 2.5 mg QHS PO 08/05/20 21:00 08/05/20 22:44 DC 08/05/20 20:43 Amlodipine Besylate (Norvasc) 5 mg QHS PO 08/06/20 21:00 Amlodipine Besylate (Norvasc) 5 mg QHS PO 07/30/20 21:00 08/01/20 17:15 DC 07/31/20 21:00 Amlodipine Besylate (Norvasc) 10 mg DAILY PO 07/26/20 09:00 08/01/20 17:15 DC 08/01/20 08:31 Aspirin (Aspirin Chewable) 81 mg DAILY PO 07/26/20 09:00 08/06/20 07:44 Atenolol (Tenormin) 100 mg DAILY PO 07/26/20 09:00 08/01/20 17:15 DC 08/01/20 08:32 Bisacodyl (Dulcolax Suppository) 10 mg Q3DP PRN TX CONSTIPATION 07/25/20 14:45 Budesonide/ Formoterol Fumarate (Symbicort 160/ 4.5mcg) 2 puff RBID INH 07/25/20 20:00 08/06/20 07:46 Dextrose (Dextrose 50%) 25 ml ASDIRECTED PRN IV SEE LABEL COMMENTS 07/25/20 15:00 Docusate Sodium (Colace) 100 mg BID PO 07/25/20 21:00 08/05/20 20:42 Enoxaparin Sodium (Lovenox) 40 mg DAILY SC 07/26/20 09:00 08/05/20 07:59 Fish Oil ([place]-3 (1000mg)) 1 cap DAILY PO 07/26/20 09:00 08/06/20 07:42 Fludrocortisone Acetate (Florinef) 0.1 mg BID PO 07/25/20 21:00 07/25/20 14:50 DC Fludrocortisone Acetate (Florinef) 0.1 mg BID PO 07/25/20 21:00 07/28/20 08:56 DC 07/28/20 08:13 Fludrocortisone Acetate (Florinef) 0.1 mg DAILY PO 07/28/20 09:00 07/30/20 14:14 DC 07/30/20 07:42 Glucagon (Glucagon) 1 mg ASDIRECTED PRN SC SEE LABEL COMMENTS 07/25/20 15:00 Glucose (Glucose) 16 GM ASDIRECTED PRN PO SEE LABEL COMMENTS 07/25/20 15:00 Home Med (Med Rec Complete!) ASDIRECTED XX 07/25/20 14:30 07/25/20 14:52 DC Hydrocortisone (Proctosol Hc) TO RECTAL AREA DAILY TOP 07/26/20 09:00 07/28/20 09:03 DC 07/26/20 09:04 Hydrocortisone (Proctosol Hc) apply to plaques o... DAILY TOP 07/28/20 09:00 08/02/20 09:04 Insulin Human Lispro (HumaLOG INSULIN) SEE PROTOCOL TABLE AC SC 07/25/20 17:30 08/06/20 07:42 Insulin Human Lispro (HumaLOG INSULIN) SEE PROTOCOL TABLE QHS SC 07/25/20 21:00 07/26/20 21:48 Lisinopril (Prinivil) 20 mg DAILY PO 07/26/20 09:00 08/06/20 06:07 Metoprolol Tartrate (Lopressor) 25 mg BID PO 08/02/20 09:00 08/03/20 16:49 DC 08/03/20 09:20 Metoprolol Tartrate (Lopressor) 25 mg TID PO 08/03/20 16:00 08/06/20 07:43 Omeprazole (PriLOSEC) 40 mg DAILY PO 07/26/20 09:00 08/06/20 07:42 Ondansetron HCl (Zofran) 4 mg Q8H PRN PO NAUSEA OR VOMITING 07/25/20 14:45 Phenyleph/Shark Oil/Min Oil/Petrol (Preparation H Ointment) QIDP PRN TX ITCHING 07/25/20 14:15 07/28/20 09:05 DC Phenyleph/Shark Oil/Min Oil/Petrol (Preparation H Ointment) APPLY TO RECTAL AREA QIDP PRN TX ITCHING 07/28/20 09:15 Polyethylene Glycol (Miralax) 1 pkt DAILY PO 07/26/20 09:00 08/01/20 08:30 Potassium Chloride (Micro-K Extencaps) 40 meq BID PO 07/25/20 21:00 07/25/20 15:07 DC Potassium Chloride (Micro-K Extencaps) 40 meq DAILY PO 07/26/20 09:00 08/06/20 07:44 Sodium Chloride (Sodium Chloride) 3 gm Q8H PO 07/25/20 22:00 07/28/20 08:56 DC 07/28/20 06:17 Tamsulosin HCl (Flomax) 0.4 mg DAILY PO 07/26/20 09:00 08/06/20 07:43 Ursodiol (Actigall) 300 mg TID PO 07/25/20 21:00 08/06/20 07:42 LYNDSEY AVENDANO MD Aug 06, 2020 08:07
[2020-08-06] MEDS: ANUSOL HC CREAM 30GM TOP SCH (09:00)
[2020-08-06] MEDS: ENOXAPARIN 40MG/0.4ML SYRINGE (J1650 PER 10MG) SC SCH (09:00)
[2020-08-06] MEDS: MIRALAX *UNIT DOSE* 17GM PACKET PO SCH (09:00)
[2020-08-06] MEDS: DOCUSATE SODIUM 100 MG CAP PO SCH (09:00)
[2020-08-06] MEDS ORDERED: atenoloL 25 MG TAB PO ONE (12:00)
[2020-08-06] MEDS ORDERED: DOCUSATE SODIUM 100 MG CAP PO PRN (12:30)
[2020-08-06 14:00] VITALS: BP 155/83
--- NOTE | 2020-08-06 16:45 | IPNPDOC ---
Text Note Date of Service The patient was seen on 08/06/20. NOTE He denies any new complaints. PHYSICAL EXAMINATION: VITAL SIGNS: Please see below. GENERAL: NAD, sitting comfortably in chair HEENT: NC/AT, EOMI, PERRL Lungs: CTA B/L Heart: +S1S2, RRR Abd: soft, NT, +BS, obese Ext: no edema, sensation intact Psych: AAOx3 LABORATORY DATA: Please see below. ASSESSMENT/PLAN: This is a 55-year-old male with history of hypertension , diabetes, and recent PE on Eliquis with sudden onset of headache, confusion and right-sided visual field cut. CT head showed L IPH and IV Extension, and was given Kcentra and TXA for reversal of Eliquis. He was then Air-transferred to [facility] . ECHO was done on which showed EF 55%, MRI brain was done as well and showed 07.20.2020 Acute/subacute L Temporoparietal lobe with stable surrounding edema and mass effect. CTA no change in hemorrhage nor evidence aneurysm or AVM. Currently he is on only ASA and on no AC for his recently diagnosed PE and afib which is rate controlled with Metoprolol. He is currently getting therapu in ARU 1: ICH. CT head showed L IPH and IV Extension, and was given Kcentra and TXA for reversal of Eliquis. Repeat CTA showed no change in hemorrhage nor evidence aneurysm or AVM, currently on statin therapy - enrolled in SATURN trial. continue with rehab as per primary team 2: Afib: CHADVASC 3 : rate controlled with metoprolol. He is not on any anti- cognition because of his recent intracranial hemorrhage and he is very high risk for any anticoagulation. He will need to be followed with neurosurgery as an outpatient and once they clear him only, then he can be put on full dose anticoagulation He also has been recently diagnosed with pulmonary embolism for which she was on Eliquis, but because of his intracranial hemorrhages Eliquis has been discontinued. He is only on aspirin at this time. No obvious cause of pulmonary embolism was found. But as the patient is not on any anticoagulation, and most of the pulmonary embolism arises from the lower extremities. the discussion about IVC filter as a prophylactic measure was done but IR didnt agree.. 3. HTN: losartan amlodipine, metoprolol. Continue to monitor 4. DM. On sliding scale insulin right now. Consistent carb diet. A1c of 6.5. 5. BPH: Continue Flomax DVT prophylaxis: Lovenox. Disposition as per primary VS,Stefan, I+O VS, Stefan, I+O Laboratory Tests 08/06/20 06:49 Vital Signs Date Time Temp Pulse Resp B/P (MAP) Pulse Ox O2 Delivery O2 Flow Rate FiO2 08/06/20 14:00 98.2 68 18 155/83 (107) 95 Room Air I&O- Last 24 Hours up to 6 AM 08/06/20 06:00 Intake Total 900 ml Balance 900 ml ALLEGRA DAWKINS MD Aug 06, 2020 16:45
[2020-08-06 19:22] VITALS: BP 161/93
[2020-08-06] MEDS ORDERED: amLODIPine 5 MG TAB PO SCH (21:00)
[2020-08-06] MEDS ORDERED: LOSARTAN 50MG TABLET PO SCH (21:00)
[2020-08-07] VITALS (8 sets, daily range): BP systolic 147–218; BP diastolic 75–110
[2020-08-07] MEDS: SYMBICORT 160/4.5MCG INHALER 6GM INH SCH ×2 (08:00→20:43)
--- NOTE | 2020-08-07 08:11 | IPNPDOC ---
PM&R Progress Note DATE OF SERVICE: Aug 07, 2020 Perinatal Educator Progress Note DATE OF ADMISSION: Jul 25, 2020 at 13:32 INPATIENT REHABILITATION ADMISSION DAY: #13 CHIEF COMPLAINT: Aphasia. Resolving Right Visual Field Cut. Low back pain with bilateral lower extremity discomfort. 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 He [place] [facility] [place] head showed L IPH and IV Extension, given Kcentra and TXA for reversal of Eliquis. He was then Air-transferred to [facility] 07.18.2020. on presentation he had receptive aphasia, had R Upper visual field cut, workup noted for abnormal spot EEG/07.23.20, no clear epileptiform abnormality. ECHO 07.22.20 EF 55%, MRI brain 07.20.2020 Acute/s ubacute L Temporoparietal lobe with stable surrounding edema and mass effect. CTA no change in hemorrhage nor evidence aneurysm or AVM. He was changed to ASA for a fib. Atenolol titrated up to 100/day for intermittent tachy cardia. Hyponatremia treated with Na 3G TID and started on Florinef BID now with normalized electrolytes have weaned off Na tabs and Flourinef. He is enrolled in the SATURN trial. He is sleeping well, LBP and bilateral LE discomfort improved however BP escalations in the 160s-190's delayed anticipated discharge, continue with with medication shifts. Reverted to active AFib 08.11.2020, VR 100, this week has been back in sinus rhythm. Judgement and insight remain lacking, however improving. Radiographic series noted for DDD, L5/S1 listhesis and disc space narrowing, L4/5 mild disc space narrowing, probable HNP and polyradiculopathy further complicating functional capabilities, improving with increased ambulation and decreased prolonged sitting activities. Mild balance issues, did well with room privileges, still safety issues with bathing being addressed. Discussions with IVR/Hospitalist team led to decision to hold off on IVC with neg evidence DVT LE on US. Patient pharmacy confirmed prior meds losartan (had just changed to 100 from 50 from prev Lisinopril), amlodipine 10, atenolol 50 as we continue to juggle optimal target for BP management. Previously, PT noted significant orthostatic changes, less severe yesterday, will continue to monitor. No new complaints this morning slept better, continued education when he inquired about going home, reminded need for BP control when he said he was at 165 and that its always like that, that that may have contributed to the current situation of his brain bleed and hospitalization. REVIEW OF SYSTEMS: The following is a completed review of systems and has been reviewed. Review of systems otherwise unremarkable. PAIN: Patient self reports no pain. EYES: No recent vision changes. EARS, NOSE, & THROAT: No throat pain, or dysphagia, or rhinorrhea. CARDIOVASCULAR: Denies chest pain or palpitations. PULMONARY: Denies shortness of breath. GASTROINTESTINAL: Denies constipation/diarrhea, notes, this morning. GENITOURINARY: Continent. No complaints. MUSCULOSKELETAL: bilateral hip girdle discomfort and complaint of low back pain, improved NEUROLOGICAL:.aphasia, mild left lower extremity weakness HEMATOLOGICAL: no specific complaints SKIN: .widespread psoriasis plaques over trunk, lower abdomen PSYCHIATRIC: Unremarkable. All other review of systems found to be negative. MEDICATIONS: Please see below. PHYSICAL EXAMINATION: VITAL SIGNS: Please see below. BP still elevated GENERAL: Pleasant and cooperative. Clearer cognitively daily HEENT: Extraocular movements intact. CARDIOVASCULAR: Regular S1 S2 with radial pulse about 70 LUNGS: Clear to auscultation bilaterally. No wheezes. No rhonchi. ABDOMEN: Soft, nontender, obese. Positive bowel sounds. Normal active bowel sounds SKIN: Multiple large maculopapular red lesions posterolateral trunk, abdomen, dry, flaky Extremities: no point tenderness no swelling negative Phuong's LABORATORY DATA: Please see below. FUNCTIONAL STATUS: Premorbid: Independent with all activities of daily life as well as mobility. Mild word finding difficulties, MOD I for [id number], bed to chair and ambulation. Improving safety issues in showering activities. Ambulating significant distances at Mod I without assistive device, slight balance issues. HOSPITAL UNIT COORDINATOR interventions continue, has word finding, judgement and other communication challenges. Anosognosia remains a bit of a challenge. GOALS: Regain baseline level of modified independence, CV stability ASSESSMENT: Left temporal parietal ICH malignant HTN Orthostatic hypotension DM History PE on Eliquis aphasia Hyponatremia/HypoKalemia, normalized AFib. Psoriasis Low back pain with L5/S1 Spondylolisthesis, DDD and probable radiculopathy This is a 55-year-old gentleman with history of hypertension, diabetes, with sudden onset of headache, confusion and right-sided visual field cuts found to have left temporal parietal IPH with extension into the ventricular system at local hospital, transferred to [facility] 07.18.2020, worked up, stabilized and transferred to [facility] for Comprehensive rehabilitation services 07.25.2020 doing well and making rapid progress in his recovery. BP control improving but remains labile and a recurrence risk, orthostatic changes and intermittent resumption of active Afib with somewhat rapid response at times noted at rest. Discussed with Hospitalist and continue med changes to Atenolol/Losartan/Amlodipine. BP fluctuations in relationship to increased levels of physical activities improved, however spikes overnight even while asleep remain worrisome. Spent much of day tracking BP and adding meds with Systolics cresting past 200 at times, hanging in the 170s to 180s despite additional doses of Amlodipine, Hydralazine. Discussed with family and hospitalist that probably best to keep him another day under observation as we aggressively continue to get BP under better control for possible planned DC tomorrow. PLAN: 1. Rehab- PT/OT advance gait and ADls, strengthen/stretch/maintain ROM all 4 limbs, LBP, gait, stability, higher order cognitive functions. BP monitored throughout therapy sessions. -HOSPITAL UNIT COORDINATOR for communication, cognitive assessments and assist with optimal behavioral strategies to facilitate progress and achievement of greatest potential functional capability. 2. Neuro- s/p ICH, aphasic, no evidence siezures, monitor for progression -c/u ASa and statin for secondary stroke prevention tight lipid control 3. Cardiac- recurrent Afib now seems to have reconverted to sinus rhythm, c/u ASA and beta-dianne, on SATURN trial, VR 70s -HTN , improved but labile, overnight 160s, lowest 140 today, hanging >170 much of day and at times still orthostatic.. BMP doing well. -HLD- c/u CRESTOR 4. Endo- hx of DM c/u insulin and ISS good control FBS 5. - checked UA stable 6. GI ppx- protonix, 7. MSK-LB pain less impact on mobility training and rehab process. Include LB spine stabilization rx as part of protocol. 8. Skin-emollients and creams available, patient defers, no open areas or weeping despite large areas of involvement. May warrant further PETERSEN as outpatient for possible psoriatic arthritis component to LS issues. PROJECTED DISCHARGE DESTINATION: Home with family. PROGNOSIS: Good ESTIMATED LENGTH OF STAY: 5-7 days. TIME SPENT COUNSELING AND COORDINATING CARE: 40 minutes. This document is generated using speech recognition software which may result in grammatical, typographical and individual word errors. Allergies Coded Allergies: Penicillins (Verified Allergy, Unknown, 07/25/20) codeine (Verified Allergy, Unknown, 07/25/20) hydrocodone (Verified Allergy, Unknown, 07/25/20) Vital Signs Vital Signs Date Time Temp Pulse Resp B/P (MAP) Pulse Ox O2 Delivery O2 Flow Rate FiO2 08/07/20 06:00 97.6 65 18 170/88 (115) 95 Room Air Laboratory Data Labs 24H Laboratory Tests 2 08/06/20 11:33: Bedside Glucose (Misc Panel) 81 08/06/20 16:45: Bedside Glucose (Misc Panel) 121H 08/06/20 19:41: Bedside Glucose (Misc Panel) 139H 08/07/20 06:07: Bedside Glucose (Misc Panel) 107H Current Medications Current Medications Current Medications Medications (Trade) Dose Ordered Sig/Amelia Route PRN Reason Start Time Stop Time Status Last Admin Dose Admin Acetaminophen (Tylenol Tab) 650 mg Q4H PRN PO PAIN / FEVER 07/25/20 14:45 UNV Acetaminophen (Tylenol Tab) 650 mg Q4HP PRN PO MILD PAIN (PS 1-4) 07/25/20 12:00 07/29/20 11:55 Albuterol Sulfate (Proventil, Ventolin Hfa) 2 puff Q4H PRN INH SOB/WHEEZING 07/25/20 14:45 Amlodipine Besylate (Norvasc) 2.5 mg QHS PO 08/05/20 21:00 08/05/20 22:44 DC 08/05/20 20:43 Amlodipine Besylate (Norvasc) 5 mg QHS PO 08/06/20 21:00 08/06/20 08:45 DC Amlodipine Besylate (Norvasc) 5 mg QHS PO 07/30/20 21:00 08/01/20 17:15 DC 07/31/20 21:00 Amlodipine Besylate (Norvasc) 10 mg DAILY PO 07/26/20 09:00 08/01/20 17:15 DC 08/01/20 08:31 Aspirin (Aspirin Chewable) 81 mg DAILY PO 07/26/20 09:00 08/06/20 07:44 Atenolol (Tenormin) 50 mg DAILY PO 08/07/20 09:00 Atenolol (Tenormin) 100 mg DAILY PO 07/26/20 09:00 08/01/20 17:15 DC 08/01/20 08:32 Bisacodyl (Dulcolax Suppository) 10 mg Q3DP PRN [place] CONSTIPATION 07/25/20 14:45 Budesonide/ Formoterol Fumarate (Symbicort 160/ 4.5mcg) 2 puff RBID INH 07/25/20 20:00 08/06/20 20:22 Dextrose (Dextrose 50%) 25 ml ASDIRECTED PRN IV SEE LABEL COMMENTS 07/25/20 15:00 Docusate Sodium (Colace) 100 mg BID PO 07/25/20 21:00 08/06/20 12:28 DC 08/05/20 20:42 Docusate Sodium (Colace) 100 mg BIDP PRN PO CONSTIPATION 08/06/20 12:30 Enoxaparin Sodium (Lovenox) 40 mg DAILY SC 07/26/20 09:00 08/05/20 07:59 Fish Oil ([place]-3 (1000mg)) 1 cap DAILY PO 07/26/20 09:00 08/06/20 07:42 Fludrocortisone Acetate (Florinef) 0.1 mg BID PO 07/25/20 21:00 07/25/20 14:50 DC Fludrocortisone Acetate (Florinef) 0.1 mg BID PO 07/25/20 21:00 07/28/20 08:56 DC 07/28/20 08:13 Fludrocortisone Acetate (Florinef) 0.1 mg DAILY PO 07/28/20 09:00 07/30/20 14:14 DC 07/30/20 07:42 Glucagon (Glucagon) 1 mg ASDIRECTED PRN SC SEE LABEL COMMENTS 07/25/20 15:00 Glucose (Glucose) 16 GM ASDIRECTED PRN PO SEE LABEL COMMENTS 07/25/20 15:00 Home Med (Med Rec Complete!) ASDIRECTED XX 07/25/20 14:30 07/25/20 14:52 DC Hydrocortisone (Proctosol Hc) TO RECTAL AREA DAILY TOP 07/26/20 09:00 07/28/20 09:03 DC 07/26/20 09:04 Hydrocortisone (Proctosol Hc) apply to plaques o... DAILY TOP 07/28/20 09:00 08/02/20 09:04 Insulin Human Lispro (HumaLOG INSULIN) SEE PROTOCOL TABLE AC SC 07/25/20 17:30 08/06/20 17:03 Insulin Human Lispro (HumaLOG INSULIN) SEE PROTOCOL TABLE QHS SC 07/25/20 21:00 07/26/20 21:48 Lisinopril (Prinivil) 20 mg DAILY PO 07/26/20 09:00 08/06/20 08:45 DC 08/06/20 06:07 Losartan Potassium (Cozaar) 50 mg QPM PO 08/06/20 21:00 08/06/20 21:06 Metoprolol Tartrate (Lopressor) 25 mg BID PO 08/02/20 09:00 08/03/20 16:49 DC 08/03/20 09:20 Metoprolol Tartrate (Lopressor) 25 mg TID PO 08/03/20 16:00 08/06/20 08:45 DC 08/06/20 07:43 Omeprazole (PriLOSEC) 40 mg DAILY PO 07/26/20 09:00 08/06/20 07:42 Ondansetron HCl (Zofran) 4 mg Q8H PRN PO NAUSEA OR VOMITING 07/25/20 14:45 Phenyleph/Shark Oil/Min Oil/Petrol (Preparation H Ointment) QIDP PRN [place] ITCHING 07/25/20 14:15 07/28/20 09:05 DC Phenyleph/Shark Oil/Min Oil/Petrol (Preparation H Ointment) APPLY TO RECTAL AREA QIDP PRN [place] ITCHING 07/28/20 09:15 Polyethylene Glycol (Miralax) 1 pkt DAILY PO 07/26/20 09:00 08/01/20 08:30 Potassium Chloride (Micro-K Extencaps) 40 meq BID PO 07/25/20 21:00 07/25/20 15:07 DC Potassium Chloride (Micro-K Extencaps) 40 meq DAILY PO 07/26/20 09:00 08/06/20 07:44 Sodium Chloride (Sodium Chloride) 3 gm Q8H PO 07/25/20 22:00 07/28/20 08:56 DC 07/28/20 06:17 Tamsulosin HCl (Flomax) 0.4 mg DAILY PO 07/26/20 09:00 08/06/20 07:43 Ursodiol (Actigall) 300 mg TID PO 07/25/20 21:00 08/06/20 21:06 LYNDSEY AVENDANO MD Aug 07, 2020 08:11
--- NOTE | 2020-08-07 08:21 | DS.PDOC ---
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 Psoriasis Low back pain with L5/S1 Spondylolisthesis, DDD and probable radiculopathy PAST MEDICAL HISTORY: Hypertension Diabetes. Afib Asthma Recent PE on anticoagulation Psoriasis PAST SURGICAL HISTORY: Repair umbilical hernia CHIEF COMPLAINT: Aphasia. Resolving Right Visual Field Cut. Low back pain with bilateral lower extremity discomfort. 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 He was [place] [facility] [place] showed L IPH and IV Extension, given Kcentra and TXA for reversal of Eliquis. He was then Air-transferred to [facility] 07.18.2020. on presentation he had receptive aphasia, had R Upper visual field cut, workup noted for abnormal spot EEG/07.23.20, no clear epileptiform abnormality. ECHO 07.22.20 EF 55%, MRI brain 07.20.2020 Acute/subacute L Temporoparietal lobe with stable surrounding edema and mass effect. CTA no change in hemorrhage nor evidence aneurysm or AVM. He was changed to ASA for a fib. Atenolol titrated up to 100/day for intermittent tachy cardia. Hyponatremia treated with Na 3G TID and started on Florinef BID then electrolytes normalized and he was weaned off Na tabs and Flourinef. He is enrolled in the SATURN trial. By time of discharge he was sleeping well, had improvement in LBP and bilateral LE discomfort. Severely labile BP slowed discharge plans, escalations in the 1 60s-190's despite aggressive medication adjustments, and orthostatic changes also noted requiring adjustment in timing of doses. Reverted to active AFib 08.11.2020, VR 100, by time of discharge was back in sinus rhythm. Judgement and insight remain lacking, however improving. Radiographic series n oted for DDD, L5/S1 listhesis and disc space narrowing, L4/5 mild disc space narrowing, probable HNP and polyradiculopathy further complicating functional capabilities, improving with increased ambulation and decreased prolonged sitting activities by time of discharge.. Discussions held with IVR/Hospitalist team led to decision to hold off on IVC with neg evidence DVT LE on US. Patient was been in and out of Afib during hospital course. PT noted significant orthostatic changes becoming less severe prior to discharge will need to continue to monitor at home. Anosognosia remains a challenge. HTN , improved but labile, sometimes overnight 160s asymmetry between right and left arm, possibly related to PE, will need monitoring, along with probable Holter monitor after DC. PHYSICAL EXAMINATION: VITAL SIGNS: Please see below. GENERAL: Pleasant and cooperative. Clearer cognitively daily HEENT: Extraocular movements intact. CARDIOVASCULAR: Regular S1 S2 with radial pulse about 70 LUNGS: Clear to auscultation bilaterally. No wheezes. No rhonchi. ABDOMEN: Soft, nontender, obese. Positive bowel sounds. Normal active bowel sounds SKIN: Multiple large maculopapular red lesions posterolateral trunk, abdomen, dry, flaky Extremities: no point tenderness no swelling negative Phuong's, 5/5 symmetric strength with full active range of motion. OTHER TESTS: US negative for DVT LABORATORY DATA: Please see below. ALLERGIES: See below. MEDICATIONS: See Below. FUNCTIONAL STATUS ON DISCHARGE: Mild word finding difficulties, MOD I for [id number], bed to chair and ambulation. Improving safety issues in showering activities. Ambulating significant distances at Mod I without assistive device, slight balance issues. 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 Anosognosia remains a bit of a challenge. DISCHARGE DISPOSITION: Home with assistance of brother and close follow up with PMD, H/H services Multiple medication changes including : Carvedilol 6.25mg BID #60 Chlorthalidone 25mg tab 12.5mg QD #60 Losartan 100mg QPM # 30 Hydralazine 10mg Q8 hr prn SBP>150 Potassium D C'd levels to be monitored Vital Signs/I&O Vital Sign - Last 24 Hours 08/06/20 08/06/20 08/06/20 08/06/20 12:01 14:00 19:22 21:06 Temp 98.2 98.0 Pulse 89 68 73 Resp 18 18 B/P (MAP) 160/86 155/83 (107) 161/93 (115) 161/93 Pulse Ox 95 96 O2 Delivery Room Air Room Air 08/07/20 06:00 Temp 97.6 Pulse 65 Resp 18 B/P (MAP) 170/88 (115) Pulse Ox 95 O2 Delivery Room Air I&O- Last 24 Hours up to 6 AM 08/07/20 06:00 Intake Total 2370 ml Balance 2370 ml Laboratory Data CBC/BMP Laboratory Tests 08/06/20 06:49 Labs 48H Laboratory Tests 08/05/20 11:22: Bedside Glucose (Misc Panel) 157H 08/05/20 16:16: Bedside Glucose (Misc Panel) 101 08/05/20 20:39: Bedside Glucose (Misc Panel) 151H 08/06/20 06:37: Bedside Glucose (Misc Panel) 115H 08/06/20 06:49: White Blood Count 5.6, Red Blood Count 5.23, Hemoglobin 14.7, Hematocrit 44.7, Mean Corpuscular Volume 85.5, Mean Corpuscular Hemoglobin 28.1, Mean Corpuscular Hemoglobin Concent 32.9, Red Cell Distribution Width 12.2, Platelet Count 356, Nucleated Red Blood Cells % (auto) 0.0 08/06/20 11:33: Bedside Glucose (Misc Panel) 81 08/06/20 16:45: Bedside Glucose (Misc Panel) 121H 08/06/20 19:41: Bedside Glucose (Misc Panel) 139H 08/07/20 06:07: Bedside Glucose (Misc Panel) 107H FSBS Laboratory Tests Test 08/06/20 11:33 08/06/20 16:45 08/06/20 19:41 08/07/20 06:07 Range/Units Bedside Glucose (Misc Panel) 81 121 139 107 70-105 MG/DL Medications Medications Current Medications Medications (Trade) Dose Ordered Sig/Amelia Route PRN Reason Start Time Stop Time Status Last Admin Dose Admin Acetaminophen (Tylenol Tab) 650 mg Q4H PRN PO PAIN / FEVER 07/25/20 14:45 UNV Acetaminophen (Tylenol Tab) 650 mg Q4HP PRN PO MILD PAIN (PS 1-4) 07/25/20 12:00 07/29/20 11:55 Albuterol Sulfate (Proventil, Ventolin Hfa) 2 puff Q4H PRN INH SOB/WHEEZING 07/25/20 14:45 Amlodipine Besylate (Norvasc) 2.5 mg QHS PO 08/05/20 21:00 08/05/20 22:44 DC 08/05/20 20:43 Amlodipine Besylate (Norvasc) 5 mg DAILY PO 08/07/20 09:00 Amlodipine Besylate (Norvasc) 5 mg QHS PO 08/06/20 21:00 08/06/20 08:45 DC Amlodipine Besylate (Norvasc) 5 mg QHS PO 07/30/20 21:00 08/01/20 17:15 DC 07/31/20 21:00 Amlodipine Besylate (Norvasc) 10 mg DAILY PO 07/26/20 09:00 08/01/20 17:15 DC 08/01/20 08:31 Aspirin (Aspirin Chewable) 81 mg DAILY PO 07/26/20 09:00 08/06/20 07:44 Atenolol (Tenormin) 50 mg DAILY PO 08/07/20 09:00 Atenolol (Tenormin) 100 mg DAILY PO 07/26/20 09:00 08/01/20 17:15 DC 08/01/20 08:32 Bisacodyl (Dulcolax Suppository) 10 mg Q3DP PRN [place] CONSTIPATION 07/25/20 14:45 Budesonide/ Formoterol Fumarate (Symbicort 160/ 4.5mcg) 2 puff RBID INH 07/25/20 20:00 08/06/20 20:22 Dextrose (Dextrose 50%) 25 ml ASDIRECTED PRN IV SEE LABEL COMMENTS 07/25/20 15:00 Docusate Sodium (Colace) 100 mg BID PO 07/25/20 21:00 08/06/20 12:28 DC 08/05/20 20:42 Docusate Sodium (Colace) 100 mg BIDP PRN PO CONSTIPATION 08/06/20 12:30 Enoxaparin Sodium (Lovenox) 40 mg DAILY SC 07/26/20 09:00 08/07/20 08:10 DC 08/05/20 07:59 Fish Oil ([place]-3 (1000mg)) 1 cap DAILY PO 07/26/20 09:00 08/06/20 07:42 Fludrocortisone Acetate (Florinef) 0.1 mg BID PO 07/25/20 21:00 07/25/20 14:50 DC Fludrocortisone Acetate (Florinef) 0.1 mg BID PO 07/25/20 21:00 07/28/20 08:56 DC 07/28/20 08:13 Fludrocortisone Acetate (Florinef) 0.1 mg DAILY PO 07/28/20 09:00 07/30/20 14:14 DC 07/30/20 07:42 Glucagon (Glucagon) 1 mg ASDIRECTED PRN SC SEE LABEL COMMENTS 07/25/20 15:00 Glucose (Glucose) 16 GM ASDIRECTED PRN PO SEE LABEL COMMENTS 07/25/20 15:00 Home Med (Med Rec Complete!) ASDIRECTED XX 07/25/20 14:30 07/25/20 14:52 DC Hydrocortisone (Proctosol Hc) TO RECTAL AREA DAILY TOP 07/26/20 09:00 07/28/20 09:03 DC 07/26/20 09:04 Hydrocortisone (Proctosol Hc) apply to plaques o... DAILY TOP 07/28/20 09:00 08/02/20 09:04 Insulin Human Lispro (HumaLOG INSULIN) SEE PROTOCOL TABLE AC SC 07/25/20 17:30 08/06/20 17:03 Insulin Human Lispro (HumaLOG INSULIN) SEE PROTOCOL TABLE QHS HI 07/25/20 21:00 07/26/20 21:48 Lisinopril (Prinivil) 20 mg DAILY PO 07/26/20 09:00 08/06/20 08:45 DC 08/06/20 06:07 Losartan Potassium (Cozaar) 50 mg QPM PO 08/06/20 21:00 08/06/20 21:06 Metoprolol Tartrate (Lopressor) 25 mg BID PO 08/02/20 09:00 08/03/20 16:49 DC 08/03/20 09:20 Metoprolol Tartrate (Lopressor) 25 mg TID PO 08/03/20 16:00 08/06/20 08:45 DC 08/06/20 07:43 Omeprazole (PriLOSEC) 40 mg DAILY PO 07/26/20 09:00 08/06/20 07:42 Ondansetron HCl (Zofran) 4 mg Q8H PRN PO NAUSEA OR VOMITING 07/25/20 14:45 Phenyleph/Shark Oil/Min Oil/Petrol (Preparation H Ointment) QIDP PRN [place] ITCHING 07/25/20 14:15 07/28/20 09:05 DC Phenyleph/Shark Oil/Min Oil/Petrol (Preparation H Ointment) APPLY TO RECTAL AREA QIDP PRN [place] ITCHING 07/28/20 09:15 Polyethylene Glycol (Miralax) 1 pkt DAILY PO 07/26/20 09:00 08/01/20 08:30 Potassium Chloride (Micro-K Extencaps) 40 meq BID PO 07/25/20 21:00 07/25/20 15:07 DC Potassium Chloride (Micro-K Extencaps) 40 meq DAILY PO 07/26/20 09:00 08/06/20 07:44 Sodium Chloride (Sodium Chloride) 3 gm Q8H PO 07/25/20 22:00 07/28/20 08:56 DC 07/28/20 06:17 Tamsulosin HCl (Flomax) 0.4 mg DAILY PO 07/26/20 09:00 08/06/20 07:43 Ursodiol (Actigall) 300 mg TID PO 07/25/20 21:00 08/06/20 21:06 Scheduled Albuterol Sulfate (Albuterol Sulfate Hfa) 8.5 Gm Hfa.aer.ad, 2 PUFF INH Q4H, (Reported) Amlodipine Besylate (Amlodipine Besylate) 10 Mg Tablet, 10 MG PO DAILY, (Reported) Aspirin (Aspirin) 81 Mg Tab.chew, 81 MG PO DAILY, (Reported) Atenolol (Atenolol) 100 Mg Tablet, 100 MG PO DAILY, (Reported) Budesonide/Formoterol (Symbicort 160-4.5 Mcg Inhaler) 6 Gm Hfa.aer.ad, 2 PUFF INH BID, (Reported) Buspirone HCl (Buspirone HCl) 10 Mg Tablet, 10 MG PO DAILY Carvedilol (Carvedilol) 6.25 Mg Tablet, 6.25 MG PO BID Chlorthalidone (Chlorthalidone) 25 Mg Tablet, 12.5 MG PO DAILY Docusate Sodium (Docusate Sodium) 100 Mg Capsule, 100 MG PO BID, (Reported) Dulaglutide (Trulicity) 0.75 Mg/0.5 Ml Pen.injctr, 0.75 MG PO 1XWK, (Reported) SATURDAYS Hydrocortisone (Proctozone-Hc) 30 Gm Crm.pe.fredi, 0 DOSE TOP DAILY Insulin Human Lispro (Humalog) 100 Unit/1 Ml Vial, 1 DOSE SC AC, (Reported) PER SLIDING SCALE Losartan Potassium (Cozaar) 50 Mg Tablet, 50 MG PO QPM Losartan Potassium (Cozaar) 50 Mg Tablet, 100 MG PO QPM [place]-3/Dha/Epa/Fish Oil ([place]-3 Fish Oil Softgel) 1 Each Capsule, 2 CAP PO DAILY, (Reported) Omeprazole (Omeprazole) 40 Mg Capsule.dr, 40 MG PO DAILY, (Reported) Potassium Chloride (Klor-Con M10) 10 Meq Tab.er.prt, 40 MEQ PO DAILY Ursodiol (Ursodiol) 500 Mg Tablet, 500 MG PO BID, (Reported) Scheduled PRN Acetaminophen (Acetaminophen) 325 Mg Tablet, 650 MG PO Q4H PRN for PAIN / FEVER, (Reported) Bisacodyl (Dulcolax) 10 Mg Supp.rect, 10 MG ME Q3DP PRN for CONSTIPATION, (Reported) Hydralazine HCl (Hydralazine HCl) 10 Mg Tablet, 10 MG PO Q8HP PRN for BP elevation >150 Allergies Coded Allergies: Penicillins (Verified Allergy, Unknown, 07/25/20) codeine (Verified Allergy, Unknown, 07/25/20) hydrocodone (Verified Allergy, Unknown, 07/25/20) LYNDSEY AVENDANO MD Aug 07, 2020 08:21
[2020-08-07] MEDS: atenoloL 50 MG TAB PO SCH (08:45)
[2020-08-07] MEDS: ursodioL 300 MG CAP PO SCH ×3 (08:46→20:46)
[2020-08-07] MEDS: ASPIRIN 81 MG CHEW TABLET PO SCH (08:46)
[2020-08-07] MEDS: OMEPRAZOLE 20 MG CAP PO SCH (08:46)
[2020-08-07] MEDS: POTASSIUM CHLORIDE 10 MEQ SR TABLET PO SCH (08:46)
[2020-08-07] MEDS: OMEGA-3 1000MG CAPSULE PO SCH (08:46)
[2020-08-07] MEDS: TAMSULOSIN 0.4 MG CAP PO SCH (08:46)
[2020-08-07] MEDS: ANUSOL HC CREAM 30GM TOP SCH (08:47)
[2020-08-07] MEDS: HumaLOG INSULIN (NovoLOG) PER UNIT SC SCH ×4 (08:47→20:46)
[2020-08-07] MEDS: MIRALAX *UNIT DOSE* 17GM PACKET PO SCH (08:47)
[2020-08-07] MEDS ORDERED: amLODIPine 5 MG TAB PO SCH (09:00)
[2020-08-07] MEDS ORDERED: PROC1CRE5 TOP (11:01)
[2020-08-07] MEDS ORDERED: KLOR10TA76 PO (11:01)
[2020-08-07] MEDS ORDERED: COZA50TA PO (11:01)
[2020-08-07] MEDS ORDERED: **hydrALAZINE HCL** 25 MG TAB PO ONE (13:30)
[2020-08-07] MEDS ORDERED: amLODIPine 5 MG TAB PO ONE (14:45)
[2020-08-07] MEDS: LOSARTAN 50MG TABLET PO SCH (20:46)
[2020-08-08 06:00] VITALS: BP 165/77
[2020-08-08] MEDS: SYMBICORT 160/4.5MCG INHALER 6GM INH SCH ×2 (07:20→20:18)
[2020-08-08] MEDS: HumaLOG INSULIN (NovoLOG) PER UNIT SC SCH ×4 (07:39→21:00)
[2020-08-08] MEDS: ASPIRIN 81 MG CHEW TABLET PO SCH (07:40)
[2020-08-08] MEDS: OMEGA-3 1000MG CAPSULE PO SCH (07:40)
[2020-08-08] MEDS: ursodioL 300 MG CAP PO SCH ×3 (07:40→21:22)
[2020-08-08] MEDS: POTASSIUM CHLORIDE 10 MEQ SR TABLET PO SCH (07:40)
[2020-08-08] MEDS: busPIRone 10 MG TAB PO SCH (07:40)
[2020-08-08] MEDS: OMEPRAZOLE 20 MG CAP PO SCH (07:40)
[2020-08-08] MEDS: TAMSULOSIN 0.4 MG CAP PO SCH (07:40)
[2020-08-08] MEDS: MIRALAX *UNIT DOSE* 17GM PACKET PO SCH (07:43)
[2020-08-08] MEDS: amLODIPine 10 MG TAB PO SCH (07:43)
[2020-08-08] MEDS: ANUSOL HC CREAM 30GM TOP SCH (07:43)
[2020-08-08] MEDS: atenoloL 50 MG TAB PO SCH (07:43)
[2020-08-08 09:40] VITALS: BP 190/100
--- NOTE | 2020-08-08 10:17 | IPNPDOC ---
Text Note Date of Service The patient was seen on 08/08/20. NOTE He denies any new complaints. Continues to have elevated blood pressure. Denies any new stressful event . PHYSICAL EXAMINATION: GENERAL: NAD, sitting comfortably in the bed. HEENT: NC/AT, EOMI, PERRL Lungs: CTA B/L Heart: +S1S2, RRR Abd: soft, NT, +BS, obese Ext: no edema, sensation intact Neuro: Mild left lower ext weekness, Strength b/l upper ext normal. coordination impaired difficulty to perform finger nose test. ASSESSMENT/PLAN: This is a 55-year-old male with history of hypertension , diabetes, and recent PE on Eliquis with sudden onset of headache, confusion and right-sided visual field cut. CT head showed L IPH and IV Extension, and was given Kcentria and TXA for reversal of Eliquis. He was then Air-transferred to [facility] . ECHO was done on which showed EF 55%, MRI brain was done as well and showed 07.20.2020 Acute/subacute L Temporoparietal lobe with stable surrounding edema and mass effect. CTA no change in hemorrhage nor evidence aneurysm or AVM. Currently he is on only ASA and on no AC for his recently diagnosed PE and afib which is rate controlled with Metoprolol. He is currently getting therapu in ARU 1: ICH. CT head showed L IPH and IV Extension, and was given Kcentria and TXA for reversal of Eliquis. Repeat CTA showed no change in hemorrhage nor evidence aneurysm or AVM, currently on statin therapy - enrolled in SATURN trial. continue with rehab as per primary team. 2: Afib: CHADVASC 3 : rate controlled with atenolol. He is not on any anticoag ulation because of his recent intracranial hemorrhage and he is very high risk for any anticoagulation. He will need to be followed with neurosurgery as an outpatient and once they clear him only, then he can be put on full dose anticoagulation He also has been recently diagnosed with pulmonary embolism for which she was on Eliquis, but because of his intracranial hemorrhages Eliquis has been discontinued. He is only on aspirin at this time. No obvious cause of pulmonary embolism was found. But as the patient is not on any anticoagulation, and most of the pulmonary embolism arises from the lower extremities. the discussion about IVC filter as a prophylactic measure was done but IR didnt agree.. 3. HTN: Continues to have elevated BPs. losartan increased to 100 daily, amlodipine increased to 10 daily , atenolol continues. Continue to monitor. If the BP continues to be elevated, possibily atenolol will be switched to COreg a better anti Htn drug. Renal duplex for arterial flows ordered. 4. DM. On sliding scale insulin right now. Consistent carb diet. A1c of 6.5. 5. BPH: Continue Flomax DVT prophylaxis: Lovenox. Disposition as per primary VS,Fishbone, I+O VS, Fishbone, I+O Vital Signs Date Time Temp Pulse Resp B/P (MAP) Pulse Ox O2 Delivery O2 Flow Rate FiO2 08/08/20 09:40 190/100 (130) 08/08/20 07:43 66 08/08/20 06:00 98.6 18 95 Room Air I&O- Last 24 Hours up to 6 AM 08/08/20 06:00 Intake Total 1320 ml Balance 1320 ml ALLEGRA DAWKINS MD Aug 08, 2020 10:17
[2020-08-08 14:00] VITALS: BP 126/73
--- NOTE | 2020-08-08 17:34 | IPNPDOC ---
PM&R Progress Note DATE OF SERVICE: Aug 08, 2020 Corporate Investigator Progress Note DATE OF ADMISSION: Jul 25, 2020 at 13:32 INPATIENT REHABILITATION ADMISSION DAY: #14 CHIEF COMPLAINT: Aphasia. Resolving Right Visual Field Cut. Low back pain with bilateral lower extremity discomfort. 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 CT head showed L ICH and IV Extension, given Kcentra and TXA for reversal of Eliquis. He was then Air-transferred to [facility] 07.18.2020. on presentation he had receptive aphasia, had R Upper visual field cut, workup noted for abnormal spot EEG/07.23.20, no clear epileptiform abnormality. ECHO 07.22.20 EF 55%, MRI brain 07.20.2020 Acute/subacute L Temporoparietal lobe with stable surrounding edema and mass effect. CTA no change in hemorrhage nor evidence aneurysm or AVM. He was changed to ASA for a fib. Atenolol titrated up to 100/day for intermittent tachy cardia. Hyponatremia treated with Na 3G TID and started on Florinef BID now with normalized electrolytes have weaned off Na tabs and Flourinef. He is enrolled in the SATURN trial. He is sleeping well, LBP and bilateral LE discomfort improved however despite continued neurological recovery and increasing endurance, has experienced profound wide SBP escalations in the 160s-190's delaying anticipated discharge, continued with with medication shifts. Reverted to active AFib 08.11.2020, VR 100, this week has been back in sinus rhythm. Judgement and insight remain lacking, however improving. While actively participating in various therapies, he is tired daily and requires long nap. REVIEW OF SYSTEMS: The following is a completed review of systems and has been reviewed. Review of systems otherwise unremarkable. PAIN: Patient self reports no pain. EYES: No recent vision changes. EARS, NOSE, & THROAT: No throat pain, or dysphagia, or rhinorrhea. CARDIOVASCULAR: Denies chest pain or palpitations. PULMONARY: Denies shortness of breath. GASTROINTESTINAL: Denies constipation/diarrhea, notes, this morning. GENITOURINARY: Continent. No complaints. MUSCULOSKELETAL: bilateral hip girdle discomfort and complaint of low back pain, improved NEUROLOGICAL:.aphasia, mild left lower extremity weakness HEMATOLOGICAL: no specific complaints SKIN: .widespread psoriasis plaques over trunk, lower abdomen PSYCHIATRIC: Unremarkable. All other review of systems found to be negative. MEDICATIONS: Please see below. PHYSICAL EXAMINATION: VITAL SIGNS: Please see below. BP still elevated GENERAL: Pleasant and cooperative. Clearer cognitively daily HEENT: Extraocular movements intact. CARDIOVASCULAR: Regular S1 S2 with radial pulse about 70 LUNGS: Clear to auscultation bilaterally. No wheezes. No rhonchi. ABDOMEN: Soft, nontender, obese. Positive bowel sounds. Normal active bowel sounds SKIN: Multiple large maculopapular red lesions posterolateral trunk, abdomen, dry, flaky Extremities: no point tenderness no swelling negative Phuong's LABORATORY DATA: Please see below. FUNCTIONAL STATUS: Premorbid: Independent with all activities of daily life as well as mobility. Mild word finding difficulties, MOD I for [id number], bed to chair and ambulation. Improving safety issues in showering activities. Ambulating significant distances at Mod I without assistive device, slight balance issues. DRUG COORDINATOR interventions continue, has word finding, judgement and other communication challenges. Anosognosia remains a bit of a challenge. GOALS: Regain baseline level of modified independence, CV stability ASSESSMENT: Left temporal parietal ICH HTN Orthostatic hypotension DM History PE on Eliquis aphasia Hyponatremia/HypoKalemia, normalized AFib. Psoriasis Low back pain with L5/S1 Spondylolisthesis, DDD and probable radiculopathy This is a 55-year-old gentleman with history of hypertension, diabetes, with sudden onset of headache, confusion and right-sided visual field cuts found to have left temporal parietal IPH with extension into the ventricular system at local hospital, transferred to [facility] 07.18.2020, worked up, stabilized and transferred to [facility] for Comprehensive rehabilitation services 07.25.2020 doing well and making rapid progress in his recovery. BP control improving but remains labile and a recurrence risk, orthostatic changes and intermittent resumption of active Afib with somewhat rapid response at times noted at rest. Discussed with Hospitalist and continue med changes to Atenolol/Losartan/Amlodipine. BP fluctuations in relationship to increased levels of physical activities improved, however spikes overnight even while asleep remain worrisome. Spent much of day tracking BP and adding meds with Systolics cresting past 200 at times, hanging in the 170s to 180s despite additional doses of Amlodipine, Hydralazine. Discussed with family and hospitalist that probably best to keep him over weekend under observation as we aggressively continue to get BP under better control and search for remediable causes. Unmonitored at home with levels he has been at would place him at great risk for subsequent neurological event. We appreciate hospitalist input to coordinate aggressive measures needed to bring malignant hypertension under better control while also searching for possible additional etiologies including renal issues. It is concerning that even when resting, upon arisal, his bp skyrockets at times, and that he has unequal measurements between right and left sides, warranting further assessment. PLAN: 1. Rehab- PT/OT advance gait and ADls, strengthen/stretch/maintain ROM all 4 limbs, LBP, gait, stability, higher order cognitive functions. BP monitored throughout therapy sessions and documented along with nursing measurements. Resume orthostatic measurements and side to side comparisons. -DRUG COORDINATOR for communication, cognitive assessments and assist with optimal behavioral strategies to facilitate progress and achievement of greatest potential functional capability. 2. Neuro- s/p ICH, aphasic, no evidence siezures, monitor for progression -c/u ASa and statin for secondary stroke prevention tight lipid control 3. Cardiac- recurrent Afib now seems to have reconverted to sinus rhythm, c/u ASA and beta-dianne, on SATURN trial, VR 70s -HTN , improved but labile, overnight 160s, lowest 150 today, hanging >170 much of day and at times still orthostatic.. BMP doing well. - losartan increased to 100 daily, amlodipine increased to 10 daily , atenolol continues, may need further adjustment over weekend. Continue to monitor. If the BP continues to be elevated, possibily atenolol will be switched to Coreg. Renal duplex for arterial flows ordered. HLD- c/u CRESTOR 4. Endo- hx of DM c/u insulin and ISS good control FBS 5. - checked UA stable 6. GI ppx- protonix, 7. MSK-LB pain less impact on mobility training and rehab process. Include LB spine stabilization rx as part of protocol. 8. Skin-emollients and creams available, patient defers, no open areas or weeping despite large areas of involvement. May warrant further PETERSEN as outpatient for possible psoriatic arthritis component to LS issues. PROJECTED DISCHARGE DESTINATION: Home with family. PROGNOSIS: Good ESTIMATED LENGTH OF STAY: 5-7 days. TIME SPENT COUNSELING AND COORDINATING CARE: 40 minutes. TIME SPENT: Chart Review, examination and documentation minutes. Allergies Coded Allergies: Penicillins (Verified Allergy, Unknown, 07/25/20) codeine (Verified Allergy, Unknown, 07/25/20) hydrocodone (Verified Allergy, Unknown, 07/25/20) Vital Signs Vital Signs Date Time Temp Pulse Resp B/P (MAP) Pulse Ox O2 Delivery O2 Flow Rate FiO2 08/08/20 14:00 97.0 63 18 126/73 (90) 96 Room Air Laboratory Data Labs 24H Laboratory Tests 2 08/07/20 19:33: Bedside Glucose (Misc Panel) 138H 08/08/20 05:26: Bedside Glucose (Misc Panel) 109H 08/08/20 11:22: Bedside Glucose (Misc Panel) 90 08/08/20 16:15: Bedside Glucose (Misc Panel) 113H Current Medications Current Medications Current Medications Medications (Trade) Dose Ordered Sig/Amelia Route PRN Reason Start Time Stop Time Status Last Admin Dose Admin Acetaminophen (Tylenol Tab) 650 mg Q4H PRN PO PAIN / FEVER 07/25/20 14:45 UNV Acetaminophen (Tylenol Tab) 650 mg Q4HP PRN PO MILD PAIN (PS 1-4) 07/25/20 12:00 07/29/20 11:55 Albuterol Sulfate (Proventil, Ventolin Hfa) 2 puff Q4H PRN INH SOB/WHEEZING 07/25/20 14:45 Amlodipine Besylate (Norvasc) 2.5 mg QHS PO 08/05/20 21:00 08/05/20 22:44 DC 08/05/20 20:43 Amlodipine Besylate (Norvasc) 5 mg DAILY PO 08/07/20 09:00 08/07/20 16:29 DC 08/07/20 08:45 Amlodipine Besylate (Norvasc) 5 mg QHS PO 08/06/20 21:00 08/06/20 08:45 DC Amlodipine Besylate (Norvasc) 5 mg QHS PO 07/30/20 21:00 08/01/20 17:15 DC 07/31/20 21:00 Amlodipine Besylate (Norvasc) 10 mg DAILY PO 07/26/20 09:00 08/01/20 17:15 DC 08/01/20 08:31 Amlodipine Besylate (Norvasc) 10 mg DAILY PO 08/08/20 09:00 08/08/20 07:43 Aspirin (Aspirin Chewable) 81 mg DAILY PO 07/26/20 09:00 08/08/20 07:40 Atenolol (Tenormin) 50 mg DAILY PO 08/07/20 09:00 08/08/20 07:43 Atenolol (Tenormin) 100 mg DAILY PO 07/26/20 09:00 08/01/20 17:15 DC 08/01/20 08:32 Bisacodyl (Dulcolax Suppository) 10 mg Q3DP PRN IN CONSTIPATION 07/25/20 14:45 Budesonide/ Formoterol Fumarate (Symbicort 160/ 4.5mcg) 2 puff RBID INH 07/25/20 20:00 08/08/20 07:20 Buspirone HCl (Buspar) 10 mg DAILY PO 08/08/20 09:00 08/08/20 07:40 Dextrose (Dextrose 50%) 25 ml ASDIRECTED PRN IV SEE LABEL COMMENTS 07/25/20 15:00 Docusate Sodium (Colace) 100 mg BID PO 07/25/20 21:00 08/06/20 12:28 DC 08/05/20 20:42 Docusate Sodium (Colace) 100 mg BIDP PRN PO CONSTIPATION 08/06/20 12:30 Enoxaparin Sodium (Lovenox) 40 mg DAILY SC 07/26/20 09:00 08/07/20 08:10 DC 08/05/20 07:59 Fish Oil ([place]-3 (1000mg)) 1 cap DAILY PO 07/26/20 09:00 08/08/20 07:40 Fludrocortisone Acetate (Florinef) 0.1 mg BID PO 07/25/20 21:00 07/25/20 14:50 DC Fludrocortisone Acetate (Florinef) 0.1 mg BID PO 07/25/20 21:00 07/28/20 08:56 DC 07/28/20 08:13 Fludrocortisone Acetate (Florinef) 0.1 mg DAILY PO 07/28/20 09:00 07/30/20 14:14 DC 07/30/20 07:42 Glucagon (Glucagon) 1 mg ASDIRECTED PRN SC SEE LABEL COMMENTS 07/25/20 15:00 Glucose (Glucose) 16 GM ASDIRECTED PRN PO SEE LABEL COMMENTS 07/25/20 15:00 Home Med (Med Rec Complete!) ASDIRECTED XX 07/25/20 14:30 07/25/20 14:52 DC Hydrocortisone (Proctosol Hc) TO RECTAL AREA DAILY TOP 07/26/20 09:00 07/28/20 09:03 DC 07/26/20 09:04 Hydrocortisone (Proctosol Hc) apply to plaques o... DAILY TOP 07/28/20 09:00 08/02/20 09:04 Insulin Human Lispro (HumaLOG INSULIN) SEE PROTOCOL TABLE AC SC 07/25/20 17:30 08/08/20 07:39 Insulin Human Lispro (HumaLOG INSULIN) SEE PROTOCOL TABLE QHS SC 07/25/20 21:00 07/26/20 21:48 Lisinopril (Prinivil) 20 mg DAILY PO 07/26/20 09:00 08/06/20 08:45 DC 08/06/20 06:07 Losartan Potassium (Cozaar) 50 mg QPM PO 08/06/20 21:00 08/07/20 16:29 DC 08/06/20 21:06 Losartan Potassium (Cozaar) 100 mg QPM PO 08/07/20 21:00 08/07/20 20:46 Metoprolol Tartrate (Lopressor) 25 mg BID PO 08/02/20 09:00 08/03/20 16:49 DC 08/03/20 09:20 Metoprolol Tartrate (Lopressor) 25 mg TID PO 08/03/20 16:00 08/06/20 08:45 DC 08/06/20 07:43 Omeprazole (PriLOSEC) 40 mg DAILY PO 07/26/20 09:00 08/08/20 07:40 Ondansetron HCl (Zofran) 4 mg Q8H PRN PO NAUSEA OR VOMITING 07/25/20 14:45 Phenyleph/Shark Oil/Min Oil/Petrol (Preparation H Ointment) QIDP PRN IN ITCHING 07/25/20 14:15 07/28/20 09:05 DC Phenyleph/Shark Oil/Min Oil/Petrol (Preparation H Ointment) APPLY TO RECTAL AREA QIDP PRN IN ITCHING 07/28/20 09:15 Polyethylene Glycol (Miralax) 1 pkt DAILY PO 07/26/20 09:00 08/01/20 08:30 Potassium Chloride (Micro-K Extencaps) 20 meq DAILY PO 08/09/20 09:00 Potassium Chloride (Micro-K Extencaps) 40 meq BID PO 07/25/20 21:00 07/25/20 15:07 DC Potassium Chloride (Micro-K Extencaps) 40 meq DAILY PO 07/26/20 09:00 08/08/20 10:14 DC 08/08/20 07:40 Sodium Chloride (Sodium Chloride) 3 gm Q8H PO 07/25/20 22:00 07/28/20 08:56 DC 07/28/20 06:17 Tamsulosin HCl (Flomax) 0.4 mg DAILY PO 07/26/20 09:00 08/08/20 07:40 Ursodiol (Actigall) 300 mg TID PO 07/25/20 21:00 08/08/20 07:40 LYNDSEY AVENDANO MD Aug 08, 2020 17:34
[2020-08-08 21:00] VITALS: BP 162/87
[2020-08-08] MEDS: LOSARTAN 50MG TABLET PO SCH (21:22)
[2020-08-09 05:57] VITALS: BP_SYST 145; BP_SYST 155; BP_SYST 162; BP_SYST 166; BP_DIAS 100; BP_DIAS 103; BP_DIAS 87; BP_DIAS 90
[2020-08-09] MEDS: SYMBICORT 160/4.5MCG INHALER 6GM INH SCH ×2 (07:54→20:00)
[2020-08-09] MEDS: MIRALAX *UNIT DOSE* 17GM PACKET PO SCH (09:00)
[2020-08-09] MEDS: ANUSOL HC CREAM 30GM TOP SCH (09:00)
[2020-08-09] MEDS: OMEGA-3 1000MG CAPSULE PO SCH (09:18)
[2020-08-09] MEDS: ursodioL 300 MG CAP PO SCH ×3 (09:18→20:47)
[2020-08-09] MEDS: TAMSULOSIN 0.4 MG CAP PO SCH (09:18)
[2020-08-09] MEDS: ASPIRIN 81 MG CHEW TABLET PO SCH (09:18)
[2020-08-09] MEDS: HumaLOG INSULIN (NovoLOG) PER UNIT SC SCH ×4 (09:18→20:48)
[2020-08-09] MEDS: OMEPRAZOLE 20 MG CAP PO SCH (09:19)
[2020-08-09] MEDS: POTASSIUM CHLORIDE 10 MEQ SR TABLET PO SCH (09:19)
[2020-08-09] MEDS: busPIRone 10 MG TAB PO SCH (09:20)
[2020-08-09] MEDS: atenoloL 50 MG TAB PO SCH (09:20)
[2020-08-09] MEDS: amLODIPine 10 MG TAB PO SCH (09:21)
[2020-08-09] MEDS: CHLORTHALIDONE 12.5MG PER 1/2 TABLET PO SCH (10:24)
[2020-08-09 14:00] VITALS: BP_SYST 130; BP_SYST 134; BP_DIAS 72; BP_DIAS 74; BP_DIAS 75
[2020-08-09 20:00] VITALS: BP_SYST 149; BP_SYST 155; BP_SYST 162; BP_DIAS 77; BP_DIAS 79; BP_DIAS 86
[2020-08-09] MEDS: LOSARTAN 50MG TABLET PO SCH (20:46)
[2020-08-10 05:59] VITALS: BP_SYST 159; BP_SYST 161; BP_SYST 162; BP_DIAS 90; BP_DIAS 91; BP_DIAS 98
[2020-08-10] MEDS: SYMBICORT 160/4.5MCG INHALER 6GM INH SCH ×2 (07:12→19:40)
[2020-08-10] MEDS: OMEGA-3 1000MG CAPSULE PO SCH (07:36)
[2020-08-10] MEDS: OMEPRAZOLE 20 MG CAP PO SCH (07:36)
[2020-08-10] MEDS: CHLORTHALIDONE 12.5MG PER 1/2 TABLET PO SCH (07:37)
[2020-08-10] MEDS: ASPIRIN 81 MG CHEW TABLET PO SCH (07:37)
[2020-08-10] MEDS: busPIRone 10 MG TAB PO SCH (07:37)
[2020-08-10] MEDS: amLODIPine 10 MG TAB PO SCH (07:37)
[2020-08-10] MEDS: TAMSULOSIN 0.4 MG CAP PO SCH (07:37)
[2020-08-10] MEDS: POTASSIUM CHLORIDE 10 MEQ SR TABLET PO SCH (07:38)
[2020-08-10] MEDS: ursodioL 300 MG CAP PO SCH ×3 (07:38→20:44)
[2020-08-10] MEDS: atenoloL 50 MG TAB PO SCH (07:38)
[2020-08-10] MEDS: ANUSOL HC CREAM 30GM TOP SCH (07:39)
[2020-08-10] MEDS: MIRALAX *UNIT DOSE* 17GM PACKET PO SCH (07:39)
[2020-08-10] MEDS: HumaLOG INSULIN (NovoLOG) PER UNIT SC SCH ×4 (07:39→21:00)
[2020-08-10] MEDS: **hydrALAZINE** 10 MG TAB PO SCH ×2 (10:08→17:07)
[2020-08-10 10:11] VITALS: BP 125/68
--- NOTE | 2020-08-10 13:04 | IPN ---
DATE: 08/09/2020 SUBJECTIVE: This patient was seen while rounding for the hospitalist. We have monitoring for his hypertension. His blood pressure was elevated this morning, it was 155/100 sitting, 163/103 standing, and 145/90 supine. Heart rate is in the 50s. Denies any chest pain or shortness of breath. He had his renal Doppler ultrasound done today. OBJECTIVE: VITAL SIGNS: As listed. LUNGS: Clear. HEART: Regular rhythm. ABDOMEN: Soft and nontender. EXTREMITIES: No peripheral edema. ASSESSMENT: Hypertension. PLAN: Waiting for results of his Doppler renal ultrasound. He is on amlodipine 10 mg daily, losartan 100 mg daily, Atenolol 50 mg daily. Not currently on a diuretic. I would recommend starting some thiazide diuretic. I have started chlorthalidone 12.5 mg daily. We will continue to monitor his blood pressure while he is hospitalized. He has a primary care provider that he knows he needs to follow-up with after discharge as well. NAEL
[2020-08-10 14:00] VITALS: BP 127/70
--- NOTE | 2020-08-10 15:41 | IPN ---
DATE: 08/10/2020 SUBJECTIVE: Biju blood pressure is still moderately elevated. I started chlorthalidone yesterday. Blood pressure remains elevated. We will start low dose hydralazine 10 mg q.8h. holding for systolic blood pressure less than 120. Systolic is less than 150 at this time. MTDD
[2020-08-10 20:00] VITALS: BP_SYST 159; BP_SYST 182; BP_SYST 183; BP_DIAS 76; BP_DIAS 91; BP_DIAS 93
[2020-08-10] MEDS: LOSARTAN 50MG TABLET PO SCH (20:44)
[2020-08-11] MEDS: **hydrALAZINE** 10 MG TAB PO SCH ×2 (01:33→08:32)
[2020-08-11 05:56] VITALS: BP_SYST 184; BP_SYST 189; BP_SYST 190; BP_DIAS 93; BP_DIAS 94
[2020-08-11 07:13] LABS: HEMATOCRIT 46.2 % (42.0-52.0); MEAN CORPUSCULAR HEMOGLOBIN 27.9 pg (27.0-33.0); RED BLOOD COUNT 5.37 10^6/uL (4.30-6.10); WHITE BLOOD COUNT 6.6 10^3/uL (4.0-10.0)
[2020-08-11 07:14] LABS: MEAN CORPUSCULAR HGB CONC 32.5 g/dl (32.0-36.5); PLATELET COUNT, AUTOMATED 302 10^3/uL (150-450)
[2020-08-11 07:18] LABS: BLOOD UREA NITROGEN 11 MG/DL (7-18); CALCIUM LEVEL 9.3 MG/DL (8.5-10.1); CARBON DIOXIDE LEVEL 29 MEQ/L (21-32); CHLORIDE LEVEL 107 MEQ/L (98-107); CREATININE FOR GFR 0.99 MG/DL (0.70-1.30); GLOMERULAR FILTRATION RATE > 60.0 (>56); GLUCOSE, FASTING 116 MG/DL (70-100); POTASSIUM SERUM 4.3 MEQ/L (3.5-5.1); SODIUM LEVEL 139 MEQ/L (136-145)
--- NOTE | 2020-08-11 07:32 | REP ---
INDICATION: Resistant HTN COMPARISON: 09/17/2019 None TECHNIQUE: Real time hernández scale ultrasound examination using curved array transducer. Real time hernández scale B-mode and color Doppler ultrasound examination using curved array transducer. FINDINGS: The bilateral kidneys are relatively normal in reniform shape and demonstrate increased central sinus fat along with echogenic intrarenal vasculature consistent with age related medical renal disease. Right kidney measures 13.1 x 6.5 x 6.3 cm without hydronephrosis, cystic or renal mass lesion. Small echogenic foci may reflect renovascular calcifications versus small nonobstructing nephroliths. Left kidney measures 11.4 x 4.6 x 6.1 cm with lobulation suggesting prior scarring and no hydronephrosis, cystic or renal mass lesion. Small echogenic foci may reflect renal vascular calcifications versus small nonobstructing nephroliths. Bladder is under distended. Heterogeneous enlarged prostate gland measures 5.9 x 6.4 x 5.3 cm (105 cc). The bilateral kidneys are normal in reniform shape with increased central sinus fat and mild cortical lobulations suggesting age-related renal disease. No hydronephrosis, nephrolithiasis, cystic or renal mass lesion appreciated. Right kidney measures 12.4 x 6.0 x 6.0 cm. Left kidney measures 11.8 x 4.5 x 6.0 cm. Bladder is under distended. Color Doppler evaluation demonstrates bilateral duplicated main renal arteries with normal wave patterns, velocities, and subsequent findings. Peak aortic velocity: 133 centimeters/second RIGHT KIDNEY Renal arterial velocity: 100 centimeters/second Renal-aortic ratio: 0.75 Intrarenal resistive indices: 0.74-0.75 Intrarenal acceleration times: 0.032-0.038 LEFT KIDNEY Renal arterial velocity: 115 centimeters/second Renal-aortic ratio: 0.86 Intrarenal resistive indices: 0.75-0.77 Intrarenal acceleration times: 0.032-0.036 IMPRESSION: 1. Findings consistent with chronic medical renal disease. 2. Normal Doppler evaluation without sonographic evidence to suggest renal arterial stenosis. <Electronically signed by Drake Richard > 08/11/20 0728
--- NOTE | 2020-08-11 08:10 | IPNPDOC ---
PM&R Progress Note DATE OF SERVICE: Aug 11, 2020 Press Puller Progress Note DATE OF ADMISSION: Jul 25, 2020 at 13:32 INPATIENT REHABILITATION ADMISSION DAY: #[17] SUBJECTIVE: Patient is 55 y/o hypertensive diabetic male with recalcitrant BP coming under better control over the weekend. Renal US negative for vascular abnormality, noted for chronic medical renal disease and a few small stones, Creatinine remains WNl. Appreciate hospitalist input and addition of Chlorthalidone, Hydralazine with tighter control over weekend. Elevated this morning, pre meds, will see how he pans out today and most likely plan on DC if things remain stable. ALLERGIES: See Below MEDICATIONS: Reviewed, see below. OBJECTIVE: VITAL SIGNS: Please see below. PHYSICAL EXAMINATION: LABORATORY DATA: Reviewed. Please see below. MICROBIOLOGY: Please see below. IMAGIN.14 Renal Doppler US IMPRESSION: 1. Findings consistent with chronic medical renal disease. 2. Normal Doppler evaluation without sonographic evidence to suggest renal arterial stenosis. ASSESSMENT AND PLAN: Continue safety awareness, patient education, particularly on self monitoring parameters, addition of Hydralazine as indicated for elevated SBP >150 after other medications given, hold SBP<120 Continue supportive counselling and anxiolytics ASSESSMENT: Left temporal parietal ICH HTN Orthostatic hypotension DM History PE on Eliquis aphasia Hyponatremia/HypoKalemia, normalized AFib. Psoriasis Low back pain with L5/S1 Spondylolisthesis, DDD and probable radiculopathy This is a 55-year-old gentleman with history of hypertension, diabetes, with sudden onset of headache, confusion and right-sided visual field cuts found to have left temporal parietal IPH with extension into the ventricular system at local hospital, transferred to [facility] 07.18.2020, worked up, stabilized and transferred to [facility] for Comprehensive rehabilitation services 07.25.2020 doing well and making rapid progress in his recovery. BP control improving but remains labile and a recurrence risk, orthostatic changes and intermittent resumption of active Afib with somewhat rapid response at times noted at rest. Discussed with Hospitalist and continue med changes spikes not related to activity and overnight even while asleep were worrisome. Last week tracking BP and adding meds with Systolics cresting past 200 at times, hanging in the 170s to 180s despite additional doses of Amlodipine, Hydralazine, elevated this AM, will need to observe through the morning if normalizes again as over weekend. We appreciate hospitalist input to coordinate aggressive measures needed to bring malignant hypertension under better control while also searching for possible additional etiologies including renal issues. It is concerning that even when resting, upon arisal, his bp skyrockets at times, and that he has unequal measurements between right and left sides, warranting further assessment. PLAN: 1. Rehab- PT/OT advance gait and ADls, strengthen/stretch/maintain ROM all 4 limbs, LBP, gait, stability, higher order cognitive functions. BP monitored throughout therapy sessions and documented along with nursing measurements. Resumed orthostatic measurements and side to side comparisons. -BL[employer]ATH[employer]IMMER for communication, cognitive assessments and assist with optimal behavioral strategies to facilitate progress and achievement of greatest potential functional capability. 2. Neuro- s/p ICH, aphasic, no evidence siezures, monitor for progression -c/u ASa and statin for secondary stroke prevention tight lipid control 3. Cardiac- recurrent Afib now seems to have reconverted to sinus rhythm, c/u ASA and beta-dianne, on SATURN trial, VR 70s -HTN , improved but labile, overnight 160s, lowest 150s today but stable and less orthostatic.. BMP doing well. - losartan increased to 100 daily, amlodipine increased to 10 daily , atenolol continues, further adjustment over weekend included addition of chlorthalidone. Renal duplex for arterial flows negative. Patient education and discussion with home pharmacist, will proceed with DC and close follow up with PMD. HLD- c/u CRESTOR 4. Endo- hx of DM c/u insulin and ISS good control FBS 113 5. - checked UA stable 6. GI ppx- protonix, 7. MSK-LB pain less impact on mobility training and rehab process. Include LB spine stabilization rx as part of protocol. 8. Skin-emollients and creams available, patient defers, no open areas or weeping despite large areas of involvement. May warrant further PETERSEN as outpatient for possible psoriatic arthritis component to LS issues. PROJECTED DISCHARGE DESTINATION: Home with family. PROGNOSIS: Good ESTIMATED LENGTH OF STAY: 5-7 days. TIME SPENT COUNSELING AND COORDINATING CARE: 30 min Allergies Coded Allergies: Penicillins (Verified Allergy, Unknown, 07/25/20) codeine (Verified Allergy, Unknown, 07/25/20) hydrocodone (Verified Allergy, Unknown, 07/25/20) Vital Signs Vital Signs Date Time Temp Pulse Resp B/P (MAP) Pulse Ox O2 Delivery O2 Flow Rate FiO2 08/11/20 05:56 60 189/94 (125) 65 190/93 (125) 60 184/94 (124) 08/11/20 05:56 98.2 18 96 Room Air Laboratory Data CBC/BMP Laboratory Tests 08/11/20 06:33 Labs 24H Laboratory Tests 2 08/10/20 11:21: Bedside Glucose (Misc Panel) 90 08/10/20 16:15: Bedside Glucose (Misc Panel) 164H 08/10/20 19:34: Bedside Glucose (Misc Panel) 127H 08/11/20 05:11: Bedside Glucose (Misc Panel) 104 08/11/20 06:33: Nucleated Red Blood Cells % (auto) 0.0, Anion Gap 3L, Glomerular Filtration Rate > 60.0, Calcium Level 9.3 Current Medications Current Medications Current Medications Medications (Trade) Dose Ordered Sig/Amelia Route PRN Reason Start Time Stop Time Status Last Admin Dose Admin Acetaminophen (Tylenol Tab) 650 mg Q4H PRN PO PAIN / FEVER 07/25/20 14:45 UNV Acetaminophen (Tylenol Tab) 650 mg Q4HP PRN PO MILD PAIN (PS 1-4) 07/25/20 12:00 07/29/20 11:55 Albuterol Sulfate (Proventil, Ventolin Hfa) 2 puff Q4H PRN INH SOB/WHEEZING 07/25/20 14:45 Amlodipine Besylate (Norvasc) 2.5 mg QHS PO 08/05/20 21:00 08/05/20 22:44 DC 08/05/20 20:43 Amlodipine Besylate (Norvasc) 5 mg DAILY PO 08/07/20 09:00 08/07/20 16:29 DC 08/07/20 08:45 Amlodipine Besylate (Norvasc) 5 mg QHS PO 08/06/20 21:00 08/06/20 08:45 DC Amlodipine Besylate (Norvasc) 5 mg QHS PO 07/30/20 21:00 08/01/20 17:15 DC 07/31/20 21:00 Amlodipine Besylate (Norvasc) 10 mg DAILY PO 07/26/20 09:00 08/01/20 17:15 DC 08/01/20 08:31 Amlodipine Besylate (Norvasc) 10 mg DAILY PO 08/08/20 09:00 08/10/20 07:37 Aspirin (Aspirin Chewable) 81 mg DAILY PO 07/26/20 09:00 08/10/20 07:37 Atenolol (Tenormin) 50 mg DAILY PO 08/07/20 09:00 08/10/20 07:38 Atenolol (Tenormin) 100 mg DAILY PO 07/26/20 09:00 08/01/20 17:15 DC 08/01/20 08:32 Bisacodyl (Dulcolax Suppository) 10 mg Q3DP PRN MD CONSTIPATION 07/25/20 14:45 Budesonide/ Formoterol Fumarate (Symbicort 160/ 4.5mcg) 2 puff RBID INH 07/25/20 20:00 08/10/20 19:40 Buspirone HCl (Buspar) 10 mg DAILY PO 08/08/20 09:00 08/10/20 07:37 Chlorthalidone (Hygroton, Chlorthalidone) 12.5 mg DAILY PO 08/09/20 09:00 08/10/20 07:37 Dextrose (Dextrose 50%) 25 ml ASDIRECTED PRN IV SEE LABEL COMMENTS 07/25/20 15:00 Docusate Sodium (Colace) 100 mg BID PO 07/25/20 21:00 08/06/20 12:28 DC 08/05/20 20:42 Docusate Sodium (Colace) 100 mg BIDP PRN PO CONSTIPATION 08/06/20 12:30 Enoxaparin Sodium (Lovenox) 40 mg DAILY SC 07/26/20 09:00 08/07/20 08:10 DC 08/05/20 07:59 Fish Oil (Niles-3 (1000mg)) 1 cap DAILY PO 07/26/20 09:00 08/10/20 07:36 Fludrocortisone Acetate (Florinef) 0.1 mg BID PO 07/25/20 21:00 07/25/20 14:50 DC Fludrocortisone Acetate (Florinef) 0.1 mg BID PO 07/25/20 21:00 07/28/20 08:56 DC 07/28/20 08:13 Fludrocortisone Acetate (Florinef) 0.1 mg DAILY PO 07/28/20 09:00 07/30/20 14:14 DC 07/30/20 07:42 Glucagon (Glucagon) 1 mg ASDIRECTED PRN SC SEE LABEL COMMENTS 07/25/20 15:00 Glucose (Glucose) 16 GM ASDIRECTED PRN PO SEE LABEL COMMENTS 07/25/20 15:00 Home Med (Med Rec Complete!) ASDIRECTED XX 07/25/20 14:30 07/25/20 14:52 DC Hydralazine HCl (Apresoline) 10 mg Q8H PO 08/10/20 09:00 08/11/20 01:33 Hydrocortisone (Proctosol Hc) TO RECTAL AREA DAILY TOP 07/26/20 09:00 07/28/20 09:03 DC 07/26/20 09:04 Hydrocortisone (Proctosol Hc) apply to plaques o... DAILY TOP 07/28/20 09:00 08/02/20 09:04 Insulin Human Lispro (HumaLOG INSULIN) SEE PROTOCOL TABLE AC SC 07/25/20 17:30 08/10/20 17:07 Insulin Human Lispro (HumaLOG INSULIN) SEE PROTOCOL TABLE QHS SC 07/25/20 21:00 07/26/20 21:48 Lisinopril (Prinivil) 20 mg DAILY PO 07/26/20 09:00 08/06/20 08:45 DC 08/06/20 06:07 Losartan Potassium (Cozaar) 50 mg QPM PO 08/06/20 21:00 08/07/20 16:29 DC 08/06/20 21:06 Losartan Potassium (Cozaar) 100 mg QPM PO 08/07/20 21:00 08/10/20 20:44 Metoprolol Tartrate (Lopressor) 25 mg BID PO 08/02/20 09:00 08/03/20 16:49 DC 08/03/20 09:20 Metoprolol Tartrate (Lopressor) 25 mg TID PO 08/03/20 16:00 08/06/20 08:45 DC 08/06/20 07:43 Omeprazole (PriLOSEC) 40 mg DAILY PO 07/26/20 09:00 08/10/20 07:36 Ondansetron HCl (Zofran) 4 mg Q8H PRN PO NAUSEA OR VOMITING 07/25/20 14:45 Phenyleph/Shark Oil/Min Oil/Petrol (Preparation H Ointment) QIDP PRN MD ITCHING 07/25/20 14:15 07/28/20 09:05 DC Phenyleph/Shark Oil/Min Oil/Petrol (Preparation H Ointment) APPLY TO RECTAL AREA QIDP PRN MD ITCHING 07/28/20 09:15 Polyethylene Glycol (Miralax) 1 pkt DAILY PO 07/26/20 09:00 08/01/20 08:30 Potassium Chloride (Micro-K Extencaps) 20 meq DAILY PO 08/09/20 09:00 08/10/20 07:38 Potassium Chloride (Micro-K Extencaps) 40 meq BID PO 07/25/20 21:00 07/25/20 15:07 DC Potassium Chloride (Micro-K Extencaps) 40 meq DAILY PO 07/26/20 09:00 08/08/20 10:14 DC 08/08/20 07:40 Sodium Chloride (Sodium Chloride) 3 gm Q8H PO 07/25/20 22:00 07/28/20 08:56 DC 07/28/20 06:17 Tamsulosin HCl (Flomax) 0.4 mg DAILY PO 07/26/20 09:00 08/10/20 07:37 Ursodiol (Actigall) 300 mg TID PO 07/25/20 21:00 08/10/20 20:44 LYNDSEY AVENDANO MD Aug 11, 2020 08:10
[2020-08-11 08:29] VITALS: BP 186/84
[2020-08-11] MEDS: MIRALAX *UNIT DOSE* 17GM PACKET PO SCH (08:30)
[2020-08-11] MEDS: ursodioL 300 MG CAP PO SCH (08:31)
[2020-08-11] MEDS: HumaLOG INSULIN (NovoLOG) PER UNIT SC SCH ×2 (08:31→12:06)
[2020-08-11] MEDS: TAMSULOSIN 0.4 MG CAP PO SCH (08:31)
[2020-08-11] MEDS: POTASSIUM CHLORIDE 10 MEQ SR TABLET PO SCH (08:31)
[2020-08-11] MEDS: OMEPRAZOLE 20 MG CAP PO SCH (08:31)
[2020-08-11] MEDS: busPIRone 10 MG TAB PO SCH (08:31)
[2020-08-11] MEDS: ASPIRIN 81 MG CHEW TABLET PO SCH (08:32)
[2020-08-11] MEDS: amLODIPine 10 MG TAB PO SCH (08:32)
[2020-08-11] MEDS: CHLORTHALIDONE 12.5MG PER 1/2 TABLET PO SCH (08:32)
[2020-08-11] MEDS: OMEGA-3 1000MG CAPSULE PO SCH (08:32)
[2020-08-11] MEDS: ANUSOL HC CREAM 30GM TOP SCH (08:33)
[2020-08-11 08:38] VITALS: BP 186/84
[2020-08-11] MEDS ORDERED: CARVedilol 6.25 MG TAB PO SCH (09:00)
[2020-08-11] MEDS: SYMBICORT 160/4.5MCG INHALER 6GM INH SCH (09:23)
[2020-08-11 10:26] VITALS: BP 151/85
[2020-08-11 11:52] VITALS: BP_SYST 125; BP_SYST 130; BP_DIAS 70; BP_DIAS 75
[2020-08-11] MEDS ORDERED: BUSP10TA PO (12:10)
[2020-08-11] MEDS ORDERED: CARV6.25 PO (12:10)
[2020-08-11] MEDS ORDERED: HYDR10TAB PO (12:10)
[2020-08-11] MEDS ORDERED: CHLO125TA PO (12:10)
[2020-08-11] MEDS ORDERED: COZA50TA PO (12:10)
[2020-08-11 14:00] VITALS: BP 146/80
--- NOTE | 2020-08-11 14:20 | IPN ---
DATE: 08/11/2020 SUBJECTIVE: The Hospitalist Group is following Jamison blood pressure, it remains elevated. His renal ultrasound showed no evidence of renal artery stenosis. His blood pressures have between 159/76 to 189/94. He is beta blocked with a heart rate of 60. Yesterday, we started hydralazine, the day before we began a thiazide diuretic with chlorthalidone. His current regimen is hydralazine 10 mg q. 8 hours, chlorthalidone 12.5 mg daily, potassium chloride 20 mEq daily, amlodipine 10 mg daily, Losartan 100 mg daily, atenolol 50 mg daily. I would recommend that we continue to monitor his blood pressure closely and if blood pressure does not respond then titrate the dose of the hydralazine. I am also going to change the atenolol to Carvedilol with the dose of that needing to be titrated and probably dose limited by his heart rate. MTDD
== END 2020-08-11 14:22 | disposition home or self-care (01) | DRG 58 ==
LOC: M PM&R 13:32
PROVIDERS: ADMIT Physical Medicine & Rehabilitation; ATTEND Physical Medicine & Rehabilitation
DX: I69.220 Aphasia following other nontraumatic intracranial hemorrhage (principal); I69.198 Other sequelae of nontraumatic intracerebral hemorrhage; R26.89 Other abnormalities of gait and mobility; I69.24 Monoplegia of lower limb following other nontraumatic intracranial hemorrhage; I10 Essential (primary) hypertension; E11.9 Type 2 diabetes mellitus without complications; K64.8 Other hemorrhoids; E87.1 Hypo-osmolality and hyponatremia; I48.91 Unspecified atrial fibrillation; D72.829 Elevated white blood cell count, unspecified; L29.9 Pruritus, unspecified; M43.17 Spondylolisthesis, lumbosacral region; E87.6 Hypokalemia; N40.0 Benign prostatic hyperplasia without lower urinary tract symptoms; M51.16 Intervertebral disc disorders with radiculopathy, lumbar region; I95.1 Orthostatic hypotension; J45.909 Unspecified asthma, uncomplicated; H53.40 Unspecified visual field defects; L40.50 Arthropathic psoriasis, unspecified; E78.5 Hyperlipidemia, unspecified; Z79.82 Long term (current) use of aspirin; Z86.711 Personal history of pulmonary embolism; Z79.4 Long term (current) use of insulin; Z79.899 Other long term (current) drug therapy; Z88.0 Allergy status to penicillin; Z88.5 Allergy status to narcotic agent; Z88.6 Allergy status to analgesic agent